=== PATIENT | female | born 1960 | race Caucasian/White ===

== ENCOUNTER 2025-04-12 16:51 | Inpatient (IN) | payer OTHER, SELFPAY ==
--- OUTSIDE RECORDS SUMMARY | 2024-08-20 08:00 | XMS_ITS ---
Author Organization [facility] liance Address [address] [place] [address] Care Team Providers Care Automotive Service Assistant Name Role Phone Octavio Lopez Primary Care Provider Dov diaz Clinical, Operations Unavailable Unavailable REASON FOR VISIT MDS Assessment Encounters Encounter Location Date Provider Diagnosis [facility] [address] [address] 08/20/2024 Operations Clinical Plan Of Treatment No Information Progress Notes * LINDSAY CHRISDOB:1960 (64 yo F)Acc No.[id number]:08/20/2024 BLOCKED FROM THE PATIENT Patient: LINDSAY NORMAN External Provider: Viridiana mckinley Clinical Resource:Tonny Sal :1960 A ge:64 Y S ex:Female Date:08/20/2024 Address:[address] [place], [place] [id number] Pcp:Octavio Lopez Patient's Default Facility:[facility] Subjective: * Chief Complaints: * 1 . MDS Assessment. * Medical History: Objective: * Vitals: Assessment: Plan: * Treatment: Care Plan: * Problems: * * The named appointment provid er may or may not be the originator of this progress note, and it is not deemed complete until electronically signed by the appointment provider. Sign off status: Pending * Provider: Viridiana mckinley Clinical Date: 0 08/20/2024 Generated for Wily gottlieb/Bernie/eTransmitting on: 06/13/2024 01:34 PM EST
--- OUTSIDE RECORDS SUMMARY | 2024-09-17 08:00 | XMS_ITS ---
Author Organization [facility] liance Address [address] [place] [address] Care Team Providers Care Hazardous Substances Engineer Name Role Phone Octavio Lopez Primary Care Provider Dov diaz Clinical, Operations Unavailable Unavailable REASON FOR VISIT MDS Assessment Encounters Encounter Location Date Provider Diagnosis [facility] [address] [address] 09/17/2024 Operations Clinical Plan Of Treatment No Information Progress Notes * LINDSAY CHRISDOB:1960 (64 yo F)Acc No.[id number]:09/17/2024 BLOCKED FROM THE PATIENT Patient: LINDSAY NORMAN External Provider: Viridiana mckinley Clinical Resource:Tonny Sal :1960 A ge:64 Y S ex:Female Date:09/17/2024 Address:[address] [place], [place] [phone] Pcp:Octavio Lopez Patient's Default Facility:[facility] Subjective: * Chief Complaints: * 1 . [...] * Provider: Viridiana mckinley Clinical Date: 0 09/17/2024 Generated for Wily gottlieb/Bernie/eTransmitting on: 06/13/2024 01:32 PM EST
--- OUTSIDE RECORDS SUMMARY | 2025-04-08 12:37 | XMS_ITS | Encounter Summary ---
Author Organization [facility] Angelique deutsch Address [address] [place] [id number] Care Team Providers Care Jointer Operator Name Role Phone Unknown, Provider Primary Care Provider Unava ilable Reason for Visit * Reason Comments Suicidal Depression * Auth/Cert (Routine) Specialty Diagnoses / Procedures Referred By Contac t Referred To Contact Diagnoses Episode of recurrent major depressive disorder, unspecified depression episode severity Suicidal ideation Depression, unspecified depression type . Procedures . Referral ID Status Reason Start Date Expiration Date Visits Re quested Visits Authorized [id number] 1 1 Encounter Details Date Type Department Care Team (Late st Contact Info) Description 04/08/2025 12:37 PM EST - 04/12/2025 3:00 PM EST Hospital Encounter [facility] Emergency Department [address] [place] [address] Suzanne Pierce MD [address] [place] [address] Abimael Fitzpatrick MD [address] [place] [address] [address] Jessie Starr MD [address] [place] [phone] Bossman Charles MD 1 [facility] [address] [place] [phone] Shaun Reyna MD 1 [place] [address] Lois Duarte MD 1 [facility] [address] [place] [phone] Stan Moon MD [address] [place] [address] Lamont Rosales DO [address] [place] [address] Octaivo Nicole MD One [address] [address] Chris Howard MD [address] [place] [phone] Douglas Arambula MD [address] [place] [address] Episode of recurrent major depressive disorder, unspecified depression episode severity (Primary Dx); Suicidal ideation; Depression, unspecified depression type Discharge Disposition: Psychiatric Hospital Social History Tobacco Use Types Packs/Day Years Used Date Smoking Tobacco: Never Smokeless Tobacco: Never Tobacco Cessation:Counseling Given: Not Answered Comments:Pt vapes Alcohol Use Standard Drinks/Week Comments Not Currently 0 (1 standard drink = 0.6 oz pur e alcohol) Humiliation, Afraid, Rape, and Kick questionnair e Answer Date Recorded Within the last year, have y ou been afraid of your partner or ex-partner? No 04/10/2025 Emotionally Abused Not on file 04/10/2025 Physically Abused Not on file 04/10/2025 Sexually Abused Not on file 04/10/2025 Overall Financial Resource Strain (CARDIA) Answe r Date Recorded How hard is it for you to pa y for the very basics like food, housing, medical care, and heating? Somewhat hard 04/10/2025 Hunger Vital Sign Answer Date Recorded Within the past 12 months, y ou worried that your food would run out before you got the money to buy more. Never true 04/10/20 25 Ran Out of Food in the Last Year Not on file 04/10/2025 PRAPARE - Transportation Answer Date Re corded In the past 12 months, has l ack of transportation kept you from medical appointments or from getting medications? No 03/26 In the past 12 months, has l ack of transportation kept you from meetings, work, or from getting things needed for daily living? No 04/10/2025 Housing Stability Vital Sign Answer Frankie e Recorded In the last 12 months, was t here a time when you were not able to pay the mortgage or rent on time? No 04/10/2025 Number of Times Moved in the Last Year Not on fi le 04/10/2025 At any time in the past 12 m [facility], were you homeless or living in a long-term (including now)? No 04/10/2025 [facility] Utilities Answer Date Recorded In the past 12 months has th e electric, gas, oil, or water company threatened to shut off services in your home? No 04/10/2025 Food Insecurity Answer Date Recorded Within the past 12 months, y ou worried that your food would run out before you got the money to buy more. Never true 04/10/20 25 Ran Out of Food in the Last Year Not on file 04/10/2025 Intimate Partner Violence Answer Date R ecorded Emotionally Abused Not on file 04/10/2025 Within the last year, have y ou been afraid of your partner or ex-partner? No 04/10/2025 Physically Abused Not on file 04/10/2025 Sexually Abused Not on file 04/10/2025 Housing Stability Answer Date Recorded Unstable Housing in the Last Year Not on file 04/10/2025 In the last 12 months, was t here a time when you were not able to pay the mortgage or rent on time? No 04/10/2025 [address] Lived in the Last Year Not on f ile 04/10/2025 AUDIT C Answer Date Recorded How often have you had a dri nk containing alcohol, in the past year? 0 04/08/2025 How many standard drinks con taining alcohol have you had on a typical day when you are drinking, in the past year? 0 1 06/08/2024 How often have you had six o r more drinks on one occasion, in the past year? 0 04/08/2025 Comments Unknown Sex and Gender Information Value Date Recorded Sex Assigned at Female 04/08/2025 1:50 PM EST Legal Sex Female 3:54 PM EST Gender Identity Female 04/08/2025 1:50 PM EST Sexual Orientation Straight 04/08/2025 1: 50 PM EST documented as of this encounter Last Filed Vital Signs Vital Sign Reading Time Taken Comments Blood Pressure 117/62 04/12/2025 6:50 AM EST Pulse 75 04/12/2025 6:50 AM EST Temperature 36.7 C (98 F) 04/12/2025 6:50 AM EST Respiratory Rate 18 04/12/2025 6:50 AM EST Oxygen Saturation 95% 04/12/2025 6:50 AM EST Inhaled Oxygen Concentration - - Weight 109 kg (241 lb 3.2 oz) 04/08/2025 12:23 P M EST Height 162.6 cm (5' 4 ) 04/08/2025 12:23 PM EST Body Mass Index 41.4 04/08/2025 12:23 PM EST documented in this encounter Functional Status * Are you deaf or do you have serious difficulty hearing? Answer Date of Assessment Author No 04/08/2025 1:52 PM Velia Mares * Are you blind or do you have serious difficulty seeing, even when wearing glasses? Answer Date of Assessment Author No 04/08/2025 1:52 PM Velia Mares * Do you have serious difficulty walking or climbing stairs? Answer Date of Assessment Author No 04/08/2025 1:52 PM Velia Mares * Do you have difficulty dressing or bathing? Answer Date of Assessment Author No 04/08/2025 1:52 PM Velia Mares * Because of a physical, mental, or emotional condition, do you have difficulty doing errands alone such as visiting the doctor? Answer Date of Assessment Author No 04/08/2025 1:52 PM Velia Mares documented as of this encounter Mental Status * Because of a physical, mental, or emotional condition, do you have serious difficulty concentrating, remembering, or making decisions? Answer Entry Date Author No 04/08/2025 1:52 PM Velia Mares documented in this encounter Medications at Time of Discharge atorvaSTATin (LIPITOR) 80 MG tablet Take 1 tablet (80 mg total) by mouth in the morning. 07/09/2024 cholecalciferol (VITAMIN D3) 50 mcg (2,000 unit) Tab tablet Take 1 tablet (2,000 Units total) by mouth in the morning. cloNIDine (CATAPRES) 0.1 MG tablet Take 1 tablet (0.1 mg total) by mouth in the morning and 1 tablet (0.1 mg total) before bedtime. docusate sodium (COLACE) 100 MG capsule Take 1 capsule (100 mg total) by mouth in the morning and 1 capsule (100 mg total) before bedtime. 12/13/2024 EYE ITCH RELIEF 0.025 % (0.035 %) ophthalmic solution Administer 1 drop to both eyes in the morning and 1 drop before bedtime. 03/11/2025 famotidine (PEPCID) 40 MG tablet Take 1 tablet (40 mg total) by mouth in the morning. gabapentin (NEURONTIN) 100 MG capsule Take 1 capsule (100 mg total) by mouth in the morning and 1 capsule (100 mg total) in the evening and 1 capsule (100 mg total) before bedtime. 01/27/2025 gabapentin (NEURONTIN) 800 MG tablet Take 1 tablet (800 mg total) by mouth in the morning and 1 tablet (800 mg total) in the evening and 1 tablet (800 mg total) before bedtime. hydrOXYzine HCL (ATARAX) 25 MG tablet Take 1 tablet (25 mg total) by mouth 2 times a day as needed for anxiety. 02/16/2025 ibuprofen (MOTRIN) 800 MG tablet Take 1 tablet (800 mg total) by mouth every 8 hours as needed for pain. lisinopriL (ZESTRIL) 20 MG tablet Take 1 tablet (20 mg total) by mouth in the morning. 04/23/2024 methadone (DOLOPHINE) 10 mg/mL solution Take 5.3 mL (53 mg total) by mouth in the morning. 03/08/2022 ONETOUCH DELICA PLUS LANCET 30 gauge Misc Use two times daily. 01/05/2025 OneTouch Verio Test Strips Use two times daily. Dispense test strips covered by insurance. ICD Code E11.69 01/05/2025 pantoprazole (PROTONIX) [address] tablet Take 1 tablet (40 mg total) by mouth in the morning. promethazine (PHENERGAN) 25 MG tablet Take 1 tablet (25 mg total) by mouth every 8 hours as needed for nausea. SENNA 8.6 mg tablet Take 1 tablet (8.6 mg total) by mouth in the morning and 1 tablet (8.6 mg total) before bedtime. 02/28/2025 tiZANidine (ZANAFLEX) 4 MG tablet every 8 hours as needed (spasm). VENTOLIN HFA 90 mcg/actuation inhaler Inhale 2 puffs every 6 hours as needed for wheezing. 01/28/2025 diclofenac sodium (VOLTAREN) 1 % Gel Apply 2 g topically in the morning and 2 g at noon and 2 g in the evening and 2 g before bedtime. 09/24/2024 mirtazapine (REMERON) 7.5 MG tablet Take 2 tablets (15 mg total) by mouth at bedtime. 11/29/2024 tirzepatide (MOUNJARO) 2.5 mg/0.5 mL subcutaneous pen injector Inject 2.5 mg under the skin once a week. documented as of this encounter Progress Notes * Flako Pink - 04/12/2025 11:42 AM EST Behavioral Health Crisis Consult- Contact Note Patient: Evelyne Reyes : 1960 Admit Date: 04/08/2025 Date of Consult: 04/12/2025 Time of Consult: 11:42 AM Narrative: Patient: Evelyne Reyes Accepting Facility: [facility] Accepting Facility Address: [address] [place] [id number] Accepting MD: Dr Johanna Trevino Arrival Time: 4pm arrival Nurse to Nurse Report: they will call for N2N Other Labs or Needs: N/A HCP/Guardian (if applicable): N/A Reason for Section 12: SI, increased depression Information Given To: via secure chat * Jessica Vicente - 04/11/2025 12:11 PM EST Behavioral Health Crisis Consult- Contact Note Patient: Evelyne Reyes : 1960 Admit Date: 04/08/2025 Date of Consult: 04/11/2025 Time of Consult: 12:11 PM Narrative: Uploaded newest MSU to [facility] * Simi Mcclain MA - 04/11/2025 10:28 AM EST Behavioral Health Crisis Consult - Follow Up Patient: Evelyne Reyes : 1960 Admit Date: 04/08/2025 Date of Consult: 04/11/2025 Time of Consult: 10:28 AM CC: Chief Complaint Patient presents with Suicidal Depression Chart Reviewed, case discussed with team and staff. Patient reports I need serious help Updates: Psych consult outcome/psych medications: n/a Collateral Contact: No Explain:: Pt continues to meet I.P. L.O.C. Medical/Psychiatric/Substance/Social/Family History: Histories from previous consult note of 04/10 remain unchanged, except as note in HPI. Current Medications: Scheduled Medications[1] Current PRN: PRN Medications[2] Allergies: Patient has no known allergies. Physical Exam: Patient Vitals for the past 24 hrs: BP Temp Temp src Pulse Resp SpO2 04/11/25 0815 107/67 98.6 ??F (37 ??C) Oral 75 16 94 % 04/11/25 0530 107/64 -- -- 84 18 96 % 04/10/250 (!) 140/80 99 ??F (37.2 ??C) Oral 88 20 95 % 04/10/25 1237 -- -- -- -- 18 -- 04/10/25 1116 118/68 98.6 ??F (37 ??C) Oral 72 18 100 % 04/10/25 1109 118/68 -- -- -- -- -- Mental Status Exam: Mental Status Exam General Appearance: Appears stated age, appropriately dressed and no apparent distress. Disheveled. Level of Consciousness: Alert. Orientation: Oriented to person, place, time and situation. Attitude and Behavior: Cooperative. Psychomotor Activity: Normal. Speech: Normal rate, volume, rhythm, coherence, articulation, prosody and pitch. Language: Normal. Mood: Patient description of mood: Depressed. Affect: Depressed and tearful. Thought Process and Associations: Logical and goal directed. Thought Content: Positive for suicidal ideation (Patient reports mostly passive SI with vague plan. She is not forthcoming about the plan). No self-injurious ideation, no homicidal ideation and not actively hallucinating. Attention Span: Appropriate. Memory: Grossly intact. Fund of Knowledge: Normal. Cognition: Normal. Insight: Good. Judgment: Good. Labs, Imaging & Other Studies: Laboratory: Recent lab results have been reviewed and are notable for No results found for this or any previous visit (from the past 24 hours). EKG: No studies were reviewed. C-SSRS: Brewster Suicide Severity Rating Scale (C-SSRS) Since Last Contact Screener 1) Have you wished you were or wished you could go to sleep and not wake up? (Since Last Contact): Yes 2) Have you actually had any thoughts about killing yourself? (Since Last Contact): Yes 3) Have you been thinking about how you might do this? (Since Last Contact): No 4) Have you had these thoughts and had some intention of acting on them? (Since Last Contact): No 5) Have you started to work out or worked out the details of how to kill yourself? Did you intend to carry out this plan? (Since Last Contact): No 6) Have you done anything, started to do anything, or prepared to do anything to end your life? (Since Last Contact): No C-SSRS Risk Level (Since Last Contact Screener): Low Risk (04/11/25 1027 : Simi Mcclain MA) Assessment: Patient is a 64 y.o. female with past medical and psychiatric history as above. During eval, the patient presented as AOx4, calm, cooperative, and depressed. Her speech was WNL, goal-directed, and organized. Her affect was tearful and congruent with her reported sad mood. She endorsed passive SI with vague plan. She denied any SIB/HI and denied any symptoms of psychosis. She presented with goodinsight and judgement regarding her current condition and need for treatment. She struggled to engage in safety planning, The patient shared that she has a hx of severe trauma and grief which have been contributing to her depression. She explained that she used to be outgoing and that her recent behaviors do not align with her typical personality. In recent months, the patient has not been leaving her room. She has been severely depressed, neglecting to care for herself, and avoiding leaving the house. She was recently scheduled to start TMS at [facility], though she became too anxious about leaving the house and began to feel sick. She shared that a new TMS appointment has been scheduled for April 25. Throughout conversation, the patient made multiple statements expressing a feeling of hopelessness.She stated I have no life and I am a shell of a person . Of note, the patient's psychiatric provider at [facility] encouraged her to advocate for placement at [facility]. She estimated that she was last admitted to [facility] ~20 years ago. Her bed at [facility] was cancelled on 04/09 after she reported previous trauma on the unit. She also mentioned [facility], [facility], [facility]. She understands that bed placement is based on availability. Recommendations:This patient will remain boarding for psychiatric inpatient admission at this time.She continues to report suicidal ideation and inability to care for self in the context of increased depression and anxiety. Requested LOC: [facility] Barriers to placement/Specialty Placement Required: n/a Disposition Recommendation: Inpatient Level of Care Behavioral Health Diagnosis: F33.9 Depression, recurrent, unspecified Duration: Time Spent (min): 45 Case d/w: DEV Cortes ; Lamont Rosales DO Signed by: Simi Mcclain MA [1] atorvaSTATin, 80 mg, Oral, Daily cholecalciferol, 2,000 Units, Oral, Daily cloNIDine, 0.1 mg, Oral, BID docusate sodium, 100 mg, Oral, BID gabapentin, 800 mg, Oral, TID lisinopriL, 20 mg, Oral, Daily methadone, 53 mg, Oral, Daily sennosides, 8.6 mg, Oral, BID [2] hydrOXYzine HCL ondansetron promethazine tiZANidine * Luke Strong, MS - 04/10/2025 9:46 AM EST Behavioral Health Crisis Consult - Follow Up Patient: Evelyne Reyes : 1960 Admit Date: 04/08/2025 Date of Consult: 04/10/2025 Time of Consult: 9:46 AM CC: Chief Complaint Patient presents with Suicidal Depression Chart Reviewed, case discussed with team and staff. Patient reports S/I with vague plan not forthcoming with intent. Pt however, does presents as despondent, hopeless and helpless. Updates: Psych consult outcome/psych medications: Please seek psychiatric medication consult while Pt is in the E.D. Collateral Contact: No Explain:: Pt continues to meet I.P. L.O.C. Medical/Psychiatric/Substance/Social/Family History: Histories from previous consult note of I.P. remain unchanged, except as note in HPI. Current Medications: Scheduled Medications[1] Current PRN: PRN Medications[2] Allergies: Patient has no known allergies. Physical Exam: Patient Vitals for the past 24 hrs: BP Temp Temp src Pulse Resp SpO2 04/10/25 0415 -- -- -- -- 16 -- 04/09/251999 128/79 98.2 ??F (36.8 ??C) Oral 80 17 96 % 04/09/25 1852 123/75 -- -- 76 20 97 % 04/09/25 1543 129/76 98 ??F (36.7 ??C) -- 81 20 96 % 04/09/25 1344 139/78 97.4 ??F (36.3 ??C) Oral 77 16 96 % Mental Status Exam: Mental Status Exam General Appearance: Appears stated age. Overweight, disheveled and severe distress. Level of Consciousness: Lethargic. Orientation: Oriented to person, place and situation. Attitude and Behavior: Cooperative. Suspicious. Eye Contact: Good eye contact. Psychomotor Activity: Normal. Speech: Normal rate, volume, rhythm, coherence, articulation, prosody and pitch. Language: Normal. Affect: Anxious and depressed. Thought Process and Associations: Unable to asses. Thought Content: Positive for suicidal ideation. No self-injurious ideation, no homicidal ideation and not actively hallucinating. Attention Span: Appropriate. Memory: Grossly intact. Fund of Knowledge: Normal. Cognition: Normal. Insight: Poor. Judgment: Poor. Labs, Imaging & Other Studies: Laboratory: Recent lab results have been reviewed and are notable for N/A No results found for this or any previous visit (from the past 24 hours). EKG: No studies were reviewed. C-SSRS: Brewster Suicide Severity Rating Scale (C-SSRS) Since Last Contact Screener 1) Have you wished you were or wished you could go to sleep and not wake up? (Since Last Contact): Yes 2) Have you actually had any thoughts about killing yourself? (Since Last Contact): Yes 3) Have you been thinking about how you might do this? (Since Last Contact): No 4) Have you had these thoughts and had some intention of acting on them? (Since Last Contact): No 5) Have you started to work out or worked out the details of how to kill yourself? Did you intend to carry out this plan? (Since Last Contact): No 6) Have you done anything, started to do anything, or prepared to do anything to end your life? (Since Last Contact): No C-SSRS Risk Level (Since Last Contact Screener): Low Risk (04/10/25 0944 : Luke Strong, ) Brewster Suicide Severity Rating Scale (C-SSRS) Discharge Screener 1) While you were here in the hospital/program, have you wished you were or wished you could go to sleep and not wake up?: Yes 2) While you were here in the hospital/program, have you actually had thoughts about killing yourself?: Yes 3) While you were here in the hospital/program, have you been thinking about how you might kill yourself?: No 4) While you were here in the hospital/program, have you had these thoughts and had some intention of acting on them, or do you have some intention of acting on them after you leave the hospital/program?: No 5) Have you started to work out or worked out the details of how to kill yourself either for while you were here in the hospital/program or for after you leave the hospital/program? Do you intend to carry out this plan?: No 6) While you were here in the hospital/program, have you done anything, started to do anything, or prepared to do anything to end your life?: No C-SSRS Risk Level (Discharge Screener): Low (04/10/25 0944 : Luke MS Ligia) Assessment: Patient is a 64 y.o. female with past medical and psychiatric history as above now presents with depression and anxiety and is endorsing S/I with a vague plan as she declines to specify and is unableto engage in safety planning @ this time. Pt resides with her two sons in the community and [facility]. She has a psychiatrist but has not been taking her medications as she reports they do not help her anyway. She also stopped seeing a therapist and mainly isolates in her room. Pt reports issues with sleep and appetite and appears despondent, on the verge of tears, hopeless and helpless. Pt denies A/V hallucinations, SIBS and H/I. Pt continues to meet I.P. L.O.C. [facility] ([email or web address]) agrees with Clinician's disposition. Pt is asking NOT to go to [facility] as she reports having a traumatic experience there and is asking to go to [facility]. Pt reports her last I.P. 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 Recommendations: I.P. L.O.C. Requested LOC: I.P. Barriers to placement/Specialty Placement Required: None Disposition Recommendation: Inpatient Level of Care Behavioral Health Diagnosis: Unspecified Depressive D/O, F32.9 (311) Duration: Time Spent (min): 60 Case d/w: [facility] ([email or web address].[email or web address]) Signed by: Luke Strong MS, Comic Writer [1] atorvaSTATin, 80 mg, Oral, Daily cholecalciferol, 2,000 Units, Oral, Daily cloNIDine, 0.1 mg, Oral, BID docusate sodium, 100 mg, Oral, BID gabapentin, 800 mg, Oral, TID lisinopriL, 20 mg, Oral, Daily methadone, 53 mg, Oral, Daily sennosides, 8.6 mg, Oral, BID [2] hydrOXYzine HCL promethazine tiZANidine * Regino Sampsonnes - 04/09/2025 11:51 AM EST Behavioral Health Crisis Consult - Follow Up Patient: Evelyne Reyes : 1960 Admit Date: 04/08/2025 Date of Consult: 04/09/2025 Time of Consult: 10:00am CC: Chief Complaint Patient presents with Suicidal Depression The patient is a 64-year-old female with a history of major depression and PTSD who [facility] by family on 04/08/2025 due to worsening depression and suicidal ideation. The patient was medically cleared by the ED attending physician. Behavioral health was consulted resulting in the clinician determining a need for section 12 and involuntary psychiatric inpatie nt level of care. A bed was found for the patient at [facility] with transfer pending for this morning. [facility] ED team contacted [facility] emergency services triage informing them that she was agitated and refusing to get on the gurney to be transferred. They were requesting further assessment. Chart Reviewed, case discussed with team and staff. The patient's nurse states their team sent the ambulance away and do not feel the patient should be hospitalized at [facility] as she reportedly had a past traumatic experience there, felt the transfer would retraumatize her and recommendedthat she be placed at another facility. Met with the patient via telehealth on a secure platform. She was noted to be sitting on the gurney, was very tearful, anxious, and showing signs of agitation though was cooperative with the interview. The patient reports that her sleeping energy and concentration are all decreased. She states thather appetite is fair. She reports preoccupation with thoughts of hopelessness and worthlessness. She continues to express a wish to , continues somewhat vague around a clear plan or intent but does state, I do not know what I am going to do, I cannot keep feeling like this . Explored the patient's reluctance to be transferred to [facility]. She states that she has been there before and experienced traumatic interactions with some of the staff there though declined to provide further detail. She had difficulty discussing this further due to her level of anxiety,agitation, and distress. Discussed the case with flight test supervisor, Freida Lazcano and Lakeisha who agree with patient remaining in the EDfor placement at another facility. Medical/Psychiatric/Substance/Social/Family History: Histories from previous consult note of 04/08/25 remain unchanged, except as note in HPI. Current Medications: Scheduled Medications[1] Current PRN: PRN Medications[2] Allergies: Patient has no known allergies. Physical Exam: Patient Vitals for the past 24 hrs: BP Temp Temp src Pulse Resp SpO2 Height Weight 04/09/25 0909 (!) 145/91 98.5 ??F (36.9 ??C) Oral -- 18 95 % -- -- 04/09/25 0605 120/56 -- -- 80 16 95 % -- -- 04/08/25 2000 106/61 -- -- 77 18 95 % -- -- 04/08/25 1230 110/83 97.2 ??F (36.2 ??C) Temporal 79 18 99 % -- -- 04/08/25 1223 -- -- -- -- -- -- 1.626 m (5' 4 ) (!) 109 kg (241 lb 3.2 oz) Mental Status Exam: Mental Status Exam General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 ED notes for initial evaluation and management. ED Observation Progress and Discharge Notes ED Course as of 04/12/25 1201 Fri Apr 08, 2025 1539 Creatinine(!): 1.60 C/w priors [MS] 1539 Covid/Flu/RSV (Rapid) Negative. [MS] 1558 Signout: h/o depression, now with passive SI. Behavioral health c/s. [AM] Sat Apr 09, 2025 0019 I have received sign-out on this patient at the beginning of my shift. PSYCH HOLD [TT] 0807 Received patient in signout. Psych hold, medically clear. Inpatient bed at [facility] today [AY] 0947 Patient refused to go to [facility] w/ EMS, psych notified and working on alternate placement [AY] 1233 Per psych clinician, discussed the case with my supervisors. She remains on section 12, in need of involuntary inpatient psych hospitalization. We will continue the bed search, look for placement elsewhere than [facility]. [AY] 1442 Assumed care at [facility]. Patient with depression and suicidal ideation, medically cleared. On a sec 12, was going to [facility], but patient with increased agitation and reluctance to go to [facility]. Unable to de-escalate. Behavioral health team reengaged with plan for continued ED observation and working on alternate inpatient placement [JS] 2337 I have received sign-out on this patient at the beginning of my shift. PSYCH HOLD SI. LOOKING FOR BED [TT] Sun Apr 10, 2025 0635 Received in signout, 64F w suicidal ideation med cleared remains inpatient bed search in process [AY] 1434 I received signout on this patient at 2:34 PM Mental health crisis. IPLOC. Bed search in progress. [GJ] Mon Apr 11, 2025 0706 I have received signout on this patient, who is currently admitted to ED observation for SI. Evelyne is currently awaiting IPLOC. No issues reported at this time. [CD] 4460 Met with patient, reviewed her labs which show elevated blood sugars. She had previously been on metformin but not for several months. [CF] Luis Eduardo Apr 12, 2025 0147 Accepted to [facility] [SC] 1200 Patient accepted to [facility]. [JI] ED Course User Index [AM] Abimael Fitzpatrick MD [AY] Jessie Starr MD [CD] Lamont Rosales DO [CF] Octavio Nicole MD [GJ] Lois Duarte MD [JI] Douglas Arambula MD [JS] Bossman Charles MD [MS] Fredy Mckeon MD [SC] Chris Howard MD [TT] MD Abimael Lopez MD 04/08/25 190 Bossman Charles MD 04/09/25 2333 Douglas Arambula MD 04/12/25 1201 * Attestation Note - Suzanne Pierce MD - 04/08/2025 12:20 PM EST [facility] ED Attestation Note I was physically present during the morales or critical portions of the service performed by the resident and participated in the management of the patient. HPI Presenting for evaluation of depression and passive suicidal ideation. Reports feeling very depressed and wishing she was . Denies active suicidal ideation or intent to harm herself. Recent stressors include the of her brother and nephew. Reports a decline in her functional status and life satisfaction since the of her fourth son in July 2007. Past medical history of ADHD, depressive disorder, PTSD, OUD on methadone maintenance, diabetes, and obesity, hypertension, hyperlipidemia, and CKD, COPD. Denies alcohol or other illicit drug use. Prescribed methadone 58 mg daily. Reports difficulty in tapering the dose as requested. Reports visual hallucinations but denies auditory hallucinations. Denies responding to internal stimuli. Review of Clinic and Hospital Notes Last visit with one of her two therapists was last month. She has missed recent appointments due toillness. She feels one therapist was unsupportive after she missed appointments. Sees psychiatrist Dr. Christianson at [facility] monthly via telehealth. Last visit was this month. Reports non-adherence to prescribed antidepressants from Dr. Hurtado, stating they have not been effective despite taking them for up to six months at a time. She is currently on an antidepressant but cannot recall the name. Review of a note from Dr. Klaus Christianson dated 03/07/2025 indicates a history of PTSD, depression, anxiety, ADHD, and polysubstance use disorder in sustained remission on methadone. Recent psychiatric follow-up noted depressed mood, high anxiety with physical symptoms, and struggles with sleep. Denied suicidal ideation at that time. Medications listed in the 03/07/2025 note include mirtazapine, clonidine, hydroxyzine, gabapentin, methadone, lisinopril, atorvastatin, pantoprazole, and others for chronic conditions. Recent labs from 10/15/2024 showed elevated BUN (21) and creatinine (1.7), and hyperglycemia (252).A HgbA1c from 09/15/2024 was 13.2%. A hemoglobin from 10/15/2024 was 11.9 g/dL. She has an EGD scheduled for 05/06/2025 for nausea and vomiting. Physical Exam: Triage Vitals: Temperature 97.2 F, blood pressure 110/83 mmHg, heart rate 79 bpm, respirations 18/min, oxygen saturation 99% on room air. Constitutional: Appears frequently tearful. Psychiatric: Flat affect, somewhat tangential and perseverative thought process. Neurologic: Awake and alert. Oriented to place, month, and year. Unsure of the exact date. Medical Decision Making and ED Course A psychiatric consultation will be obtained for evaluation and recommendations. Will attempt to clarify current medications with nursing assistance. If admitted, home medications will be reconciled and administered. See ED Course section for additional details. Independent Review of ED Investigations CBC: Mild anemia with hemoglobin 10.5 g/dL and hematocrit 31.3%. Electrocardiogram: Normal sinus rhythm, first degree AV block, normal axis, narrow QRS, QTc 436 ms,no ectopy, no ST segment change. Basic metabolic panel Urine toxicology screen Plasma toxicology screen UA Summary Evelyne Reyes is a 64-year-old female with a history of PTSD, major depressive disorder, ADHD, OUD on methadone, diabetes and hypertension, hyperlipidemia, CKD, and COPD who presents with worsening depression and passive suicidal ideation. She denies active intent or plan for self-harm. She describes significant life stressors, including recent family deaths. Her affect is flat, she is frequentlytearful, and her thought process is somewhat tangential and perseverative. She is oriented to place, month, and year. She endorses visual but not auditory hallucinations. Her EKG shows a first-degreeAV block. Her CBC reveals a mild anemia. Given her presentation with suicidal ideation, a psychiatric consultation is being obtained for further evaluation and management recommendations. She cannot leave the ED voluntarily. Clinical Impressions: Major depressive disorder, severe exacerbation Passive suicidal ideation Mild anemia First-degree atrioventricular block Disposition: ED Observation Critical Care time (minutes): 30 Critical care was necessary to treat or prevent imminent or life-threatening deterioration of the following conditions: psychiatric crisis Critical care was time spend by me on the following activities: discussions with other provider, discussions with consultants, examination of patient, documenting the case, medical decision making and ordering and review of laboratory studies MD Suzanne Kate MD 04/08/251948 documented in this encounter Plan of Treatment Not on file documented as of this encounter Procedures Procedure Name Priority Date/Time Associated Diagnosis Comments POCI GLUCOSE Routine 04/12/2025 1:52 AM EST POCI GLUCOSE Routine 04/11/2025 4:54 PM EST DRUG SCREEN, URINE STAT 04/08/2025 6: 29 PM EST URINALYSIS WITH URINE CULTURE REFLEX STAT 04/08/2025 6:29 PM EST ECG 12-LEAD STAT 04/08/2025 2:44 PM EST SARS COV2/INFLUENZA A/B AND RSV STAT 04/08/2025 2:32 PM EST CBC AND DIFFERENTIAL STAT 04/08/2025 2:32 PM EST TOXICOLOGY SCREEN, BLOOD STAT 04/08/2025 2:32 PM EST CBC AND DIFFERENTIAL STAT 04/08/2025 2:32 PM EST BASIC METABOLIC PANEL STAT 04/08/2025 2:32 PM EST documented in this encounter Results * (ABNORMAL) POCT Glucose (04/12/2025 1:52 AM EST) [facility] Signature Glucose, POC 231(H) 70 - 110 mg/dL 04/12/2025 1:56 AM EST [facility] Comment: Expected results for non-diabetics are: Before meals: 70 - 99 mg/dL 2 hour post meal: < 140 mg/dL Critical values: < 50 and > 400 mg/dL Limitations of the Nova Stat Strip Method are as follows: -The range of the Nova Stat Strip meter is 0-600 mg/dL. -Lipemic samples: Triglycerides > 750 mg/dL may effect results. -Not to be used with severely hypotensive or dehydrated patients. -Improper technique/dosing of test strip will yield false results. -Do not use blood collection tubes containing fluoride (camilo top) as sodium fluoride interferes with test results. Blood 04/12/2025 1:52 AM EST 04/12/2025 1:56 AM EST [facility] - 04/12/2025 1:56 AM EST C4 Planner: Yaneth Sosa us Chris Howard MD POCT ORDERABLES - DEVICE Final Result [facility] [address] [place] [address], * (ABNORMAL) POCT Glucose (04/11/2025 4:54 PM EST) [facility] Glucose, POC 321(H) 70 - 110 mg/dL 04/11/2025 4:56 PM EST [facility] Comment: Expected results for non-diabetics are: Before meals: 70 - 99 mg/dL 2 hour post meal: < 140 mg/dL Critical values: < 50 and > 400 mg/dL Limitations of the Nova Stat Strip Method are as follows: -The range of the Nova Stat Strip meter is 0-600 mg/dL. -Lipemic samples: Triglycerides > 750 mg/dL may effect results. -Not to be used with severely hypotensive or dehydrated patients. -Improper technique/dosing of test strip will yield false results. -Do not use blood collection tubes containing fluoride (camilo top) as sodium fluoride interferes with test results. Blood 04/11/2025 4:54 PM EST 04/11/2025 4:56 PM EST [facility] - 04/11/2025 4:56 PM EST C4 Planner: Alyssia Ignacio us Octavio Nicole MD POCT ORDERABLES - DEVICE Final Result [facility] [address] [place] [address], * (ABNORMAL) Drug Screen, Urine (04/08/2025 6:29 PM EST) Pathologist [facility] Amphetamines Screen, Urine Negative Negative 04/08/2025 11:24 PM EST [facility] Barbiturates Screen, Urine Negative Negative 04/08/2025 11:24 PM EST [facility] Benzodiazepine Screen, Urine Negative Negative 04/08/2025 11:24 PM EST [facility] Cannabinoids Screen, Urine Negative Negative 04/08/2025 11:24 PM EST [facility] Cocaine Metabolite Screen, Urine Negative Negative 04/08/2025 11:24 PM EST [facility] Fentanyl Screen, Urine Negative Negative 04/08/2025 11:24 PM EST [facility] Methadone Screen, Urine Positive(A) Negative 04/08/2025 11:24 PM EST [facility] Comment:A Positive result is not routinely confirmed. This specimen will be held for 1 week, during which time you may request confirmatory testing be added on by ordering METHADONE, URINE, CONFIRMATION Opiates Screen, Urine Negative Negative 04/08/2025 11:24 PM EST [facility] Oxycodone Screen, Urine Negative Negative 04/08/2025 11:24 PM EST [facility] Comment [facility] performs toxicology screens for the clinical management of the patient. The laboratory does not perform toxicology screens for LEGAL or EMPLOYMENT purposes. TEST CUTOFF CONCENTRATION VALUE ---- Amphetamine/Met hamphetamine 1000 ng/mL Barbiturates 200 ng/mL Benzodiazepines 200 ng/mL Cocaine 300 ng/mL Methadone 300 ng/mL Opiates 300 ng/mL THC 50 ng/mL Oxycodone 100 ng/mL Fentanyl 5 ng/mL Results below the numerical cutoff indicate that either no drug OR a drug level below the cutoff value is present in the specimen. 04/08/2025 11:24 PM [facility] Urine URINE SPECIMEN / Unknown Collection / Unknown 04/08/2025 6:29 PM EST 04/08/2025 10:51 PM EST Suzanne Pierce MD URINE ORDERABLES Final Result [facility] [address] [place] [address], * (ABNORMAL) Urinalysis with Reflex to Urine Culture (04/08/2025 6:29 PM EST) Color, Urine Light yellow Yellow 04/08/2025 6:40 PM [facility] Clarity, Urine Clear Clear 04/08/2025 6:40 PM [facility] pH, Urine 6.5 5.0 - 8.0 04/08/2025 6:40 PM [facility] Protein, Urine Negative Negative 04/08/2025 6:40 PM [facility] Glucose, Urine 4+(A) Negative 04/08/2025 6:40 PM [facility] Ketone, Urine Negative Negative 04/08/2025 6:40 PM [facility] Bilirubin, Urine Negative Negative 04/08/2025 6:40 PM [facility] Blood, Urine Negative Negative 04/08/2025 6:40 PM [facility] Leukocyte Esterase, Urine 2+(A) Negative 04/08/2025 6:40 PM [facility] Nitrite, Urine Negative Negative 04/08/2025 6:40 PM [facility] Specific [place], Urine 1.019 1.002 - 1.030 04/08/2025 6:40 PM [facility] White Blood Cells, Urine 0-5 0-5 cells/HPF cells/HPF 04/08/2025 6:40 PM [facility] Red Blood Cell, Urine 3-5 0-5 cells/HPF cells/HPF 04/08/2025 6:40 PM [facility] Squamous Epithelial Cells 0-5 0-5 cells/HPF /HPF 04/08/2025 6:40 PM EST [facility] Mucous Threads 1+(A) None Seen 04/08/2025 6:40 PM EST [facility] Hyaline Cast 11-20(A) 0-5 casts/LPF cast/LPF 04/08/2025 6:40 PM EST [facility] Urine MID-STREAM URINE SPECIMEN / Unknown Collection / Unknown 04/08/2025 6:29 PM EST 04/08/2025 6:32 PM EST us Suzanne Pierce MD URINE ORDERABLES Final Result Performing Organization Address City/[facility]/ZIP Co de Phone Number [facility] [address] [place] [address], [place] * ECG 12 lead (04/08/2025 2:44 PM EST) Ventricular Heart Rate 65 BPM EKG [facility] MUSE Atrial Heart Rate 65 BPM EKG [facility] MUSE KS Interval 248 ms EKG [facility] QRSD Interval 92 ms EKG [facility] QT Interval 420 ms EKG [facility] QTC Interval 436 ms EKG [facility] MUSE P [place] 51 degrees EKG [facility] MUSE R [place] 54 degrees EKG [facility] MUSE T Wave [place] 57 degrees EKG [facility] MUSE 04/08/2025 2:43 PM EST 04/08/2025 5:15 PM EST Narrative EKG [facility] - 04/08/2025 5:15 PM EST Sinus rhythm with 1st degree A-V block Otherwise normal ECG No previous ECGs available Confirmed by Pablito MCCOY MD ([id number]) on 04/08/2025 5:15:18 PM Procedure Note Pablito Mccoy MD - 04/08/2025 Sinus rhythm with 1st degree A-V block Otherwise normal ECG No previous ECGs available Confirmed by Pablito MCCOY MD ([id number]) on 04/08/2025 5:15:18 PM us Suzanne Pierce MD ECG ORDERABLES Final Result EKG [facility] [address] [place] [id number] * (ABNORMAL) CBC and Differential (04/08/2025 2:32 PM EST) WBC 7.70 4.00 - 11.00 K/uL 04/08/2025 2:44 PM [facility] RBC 3.53(L) 3.90 - 5.20 M/uL 04/08/2025 2:44 PM [facility] Hemoglobin 10.5(L) 12.0 - 16.0 g/dL 04/08/2025 2:44 PM [facility] Hematocrit 31.3(L) 36.0 - 46.0 % 04/08/2025 2:44 PM [facility] MCV 89 80 - 100 fL 04/08/2025 2:44 PM [facility] MCH 29.7 26.0 - 33.0 pg 04/08/2025 2:44 PM [facility] MCHC 33.5 31.0 - 37.0 g/dL 04/08/2025 2:44 PM [facility] RDW 12.4 11.5 - 14.5 % 04/08/2025 2:44 PM [facility] Platelet Count 211 150 - 400 K/uL 04/08/2025 2:44 PM [facility] Nucleated RBC 0 <=0 #/100 WBC 04/08/2025 2:44 PM [facility] Neutrophil 55.9 30.0 - 85.0 % 04/08/2025 2:44 PM [facility] Lymphocyte 35.5 15.0 - 50.0 % 04/08/2025 2:44 PM [facility] Monocyte 6.0 2.0 - 12.0 % 04/08/2025 2:44 PM [facility] Eosinophil 2.2 0.0 - 5.0 % 04/08/2025 2:44 PM [facility] Basophil 0.1 0.0 - 2.0 % 04/08/2025 2:44 PM [facility] Immature Granulocyte ([place], Myelo, Promyelocyte) 0.3 0.0 - 1.0 % 04/08/2025 2:44 PM EST [facility] Absolute Neutrophil Count 4.31 1.20 - 9.30 K/uL 04/08/2025 2:44 PM EST [facility] Absolute Lymphocyte Count 2.73 0.60 - 5.50 K/uL 04/08/2025 2:44 PM EST [facility] Absolute Monocyte Count 0.46 0.08 - 1.30 K/uL 04/08/2025 2:44 PM EST [facility] Absolute Eosinophil Count 0.17 0.00 - 0.68 K/uL 04/08/2025 2:44 PM EST [facility] Absolute Basophil Count 0.01 0.00 - 0.20 K/uL 04/08/2025 2:44 PM EST [facility] Absolute Immature Granulocyte ([place], Myelo, Promyelocyte) 0.02 0.00 - 0.10 K/uL 04/08/2025 2:44 PM EST [facility] Blood PERIPHERAL BLOOD SPECIMEN / Unknown Venipuncture / Unknown 04/08/2025 2:32 PM EST 04/08/2025 2:35 PM EST us Suzanne Peirce MD LAB BLOOD ORDERABLES Final Re sult [facility] [address] [place] [address], * Plasma Toxicology Screen (04/08/2025 2:32 PM EST) Acetaminophen Result,Blood <5 <=30 ug/mL 04/08/2025 3:11 PM EST [facility] Alcohol <10 <=10 mg/dL 04/08/2025 3:11 PM EST [facility] Salicylate Level, Blood <1 <=10 mg/dL 04/08/2025 3:11 PM EST [facility] Blood PERIPHERAL BLOOD SPECIMEN / Unknown Venipuncture / Unknown 04/08/2025 2:32 PM EST 04/08/2025 2:35 PM EST us Suzanne Pierce MD LAB BLOOD ORDERABLES Final Re sult [facility] [address] [place] [address], [place] * (ABNORMAL) Basic Metabolic Panel (04/08/2025 2:32 PM EST) Pathologist [facility] Sodium 136 136 - 145 mmol/L 04/08/2025 3:11 PM EST [facility] Potassium 4.2 3.5 - 5.1 mmol/L 04/08/2025 3:11 PM EST [facility] Chloride 100 98 - 107 mmol/L 04/08/2025 3:11 PM EST [facility] Total CO2/Bicarbonat e 28 22 - 29 mmol/L 04/08/2025 3:11 PM EST [facility] Anion Gap 8 2 - 15 mmol/L 04/08/2025 3:11 PM EST [facility] BUN 18 8 - 23 mg/dL 04/08/2025 3:11 PM EST [facility] Creatinine, Blood 1.60(H) 0.50 - 0.90 mg/dL 04/08/2025 3:11 PM EST [facility] Glucose, Blood 357(H) 74 - 109 mg/dL 04/08/2025 3:11 PM EST [facility] Calcium 8.9 8.8 - 10.2 mg/dL 04/08/2025 3:11 PM EST [facility] Estimated GFR(CKD-EPI) 36(L) >=60 mL/min/BSA 04/08/2025 3:11 PM EST [facility] Blood PERIPHERAL BLOOD SPECIMEN / Unknown Venipuncture / Unknown 04/08/2025 2:32 PM EST 04/08/2025 2:35 PM EST Suzanne iPerce MD LAB BLOOD ORDERABLES Final Re sult [facility] [address] [place] [address], [place] * Covid/Flu/RSV (Rapid) (04/08/2025 2:32 PM EST) Pathologist [facility] Coronavirus SARS-CoV-2 Not Detected Not Detected 04/08/2025 3:18 PM EST [facility] Influenza A Not Detected Not Detected by PCR 04/08/2025 3:18 PM EST [facility] Influenza B Not Detected Not Detected by PCR 04/08/2025 3:18 PM EST [facility] RSV by PCR Not Detected Not Detected by PCR 04/08/2025 3:18 PM EST [facility] Respiratory SWAB OF INTERNAL NOSE / Unknown Collection / Unknown 04/08/2025 2:32 PM EST 04/08/2025 2:35 PM EST [facility] - 04/08/2025 3:18 PM EST The [employer] Xpert SARS-CoV-2/ Flu/ RSV assay is intended for the qualitative detection of nucleic acid from SARS-CoV-2, Influenza A, Influenza B, and Respiratory Syncytial Virus. This assay has been authorized by the FDA under an Emergency Use Authorization (EUA) for use by clinical laboratories. Negative results must be combined with clinical observations and patient history. This assay has been authorized by the FDA under an Emergency Use Authorization (EUA) for use by clinical laboratories. Suzanne Pierce MD BODY FLUIDS AND STOOLS ORDERA BLES Final Result [facility] [address] [place] [address], documented in this encounter Visit Diagnoses Diagnosis Episode of recurrent major depressive disorder, unspecified depression episode severity- Primary Suicidal ideation Depression, unspecified depression type documented in this encounter Administered Medications Inactive Administered Medications - up to 3 most recent administrations Medication Order MAR Action Action Date Dose Rate Site atorvaSTATin (LIPITOR) tablet 80 mg 80 mg, Oral, Daily, First dose on 04/09/25 at 0900, Until Discontinued Given 04/12/2025 8:55 AM EST 80 mg Given 04/11/2025 8:16 AM EST 80 mg Given 04/10/2025 11:09 AM EST 80 mg cholecalciferol (VITAMIN D3) tablet 2,000 Units 2,000 Units, Oral, Daily, First dose on 04/09/25 at 0900, Until Discontinued Given 04/12/2025 8:55 AM EST 2,000 Units Given 04/11/2025 8:17 AM EST 2,000 Units Given 04/10/2025 11:10 AM EST 2,000 Units cloNIDine (CATAPRES) tablet 0.1 mg 0.1 mg, Oral, 2 times daily, First dose on Fri04/08/25 at 2100, Until Discontinued Given 04/12/2025 8:55 AM EST 0.1 mg Given 04/11/2025 8:51 PM EST 0.1 mg Given 04/11/2025 8:16 AM EST 0.1 mg docusate sodium (COLACE) capsule 100 mg 100 mg, Oral, 2 times daily, First dose on Fri04/08/25 at 2100, Until Discontinued Given 04/12/2025 8:55 AM EST 100 mg Given 04/11/2025 8:52 PM EST 100 mg Given 04/11/2025 8:17 AM EST 100 mg gabapentin (NEURONTIN) capsule 100 mg 100 mg, Oral, 3 times daily, First dose on Fri04/08/25 at 2200, Until Discontinued Given 04/09/2025 9:03 AM EST 100 mg Given 04/08/2025 9:14 PM EST 100 mg gabapentin (NEURONTIN) capsule 800 mg 800 mg, Oral, 3 times daily, First dose (after last modification) on Fri04/09/25 at 1600, Until Discontinued Given 04/12/2025 8:54 AM EST 800 mg Given 04/11/2025 9:38 PM EST 800 mg Given 04/11/2025 3:57 PM EST 800 mg hydrOXYzine HCL (ATARAX) tablet 25 mg 25 mg, Oral, 2 times daily PRN, Starting on Fri04/08/25 at 1919, Until Fri04/12/25 at 1701, anxiety Given 04/11/2025 6:19 PM EST 25 mg Given 04/10/2025 9:03 PM EST 25 mg Given 04/10/2025 1:34 PM EST 25 mg lisinopriL (ZESTRIL) tablet 20 mg 20 mg, Oral, Daily, First dose on Fri04/09/25 at 0900, Hold Parameters: SBP, Hold for SBP less than: 100 mmHg Given 04/12/2025 8:55 AM EST 20 mg Given 04/11/2025 8:17 AM EST 20 mg Given 04/10/2025 11:09 AM EST 20 mg methadone (DOLOPHINE) 10 mg/mL (concentrated) oral solution 53 mg 53 mg, Oral, Daily, First dose (after last modification) on Fri04/08/25 at 2030, Until Discontinued Given 04/11/2025 8:52 PM EST 53 mg Given 04/10/2025 8:56 PM EST 53 mg Given 04/09/2025 8:11 PM EST 53 mg ondansetron (ZOFRAN-ODT) disintegrating tablet 4 mg 4 mg, Oral, Every 8 hours PRN, Starting on Fri04/10/25 at 1324, Until Fri04/12/25 at 1701, nausea Given 04/11/2025 3:58 PM EST 4 mg Given 04/10/2025 8:56 PM EST 4 mg Given 04/10/2025 1:34 PM EST 4 mg promethazine (PHENERGAN) tablet 25 mg 25 mg, Oral, Every 8 hours PRN, Starting on Fri04/08/25 at 1939, Until Fri04/12/25 at 1701, nausea Given 04/11/2025 8:51 PM EST 25 mg Given 04/10/2025 1:54 PM EST 25 mg Given 04/08/2025 9:33 PM EST 25 mg sennosides (SENOKOT) tablet 8.6 mg 8.6 mg, Oral, 2 times daily, First dose on Fri04/08/25 at 2100, Until Discontinued Given 04/12/2025 8:55 AM EST 8.6 mg Given 04/11/2025 8:51 PM EST 8.6 mg Given 04/11/2025 8:17 AM EST 8.6 mg tiZANidine (ZANAFLEX) tablet 4 mg 4 mg, Oral, Every 8 hours PRN, Starting on Fri04/08/25 at 1939, Until Fri04/12/25 at 1701, muscle spasms Given 04/12/2025 9:02 AM EST 4 mg Given 04/11/2025 6:19 PM EST 4 mg Given 04/10/2025 8:56 PM EST 4 mg documented in this encounter Active and Recently Administered Medications Times are shown in EST. Scheduled Medication Order 04/10/2025 04/11/2025 04/12/2025 atorvaSTATin (LIPITOR) tablet 80 mg 80 mg, Oral, Daily, First dose on Fri04/09/25 at 0900, Until Discontinued 1109 (Given - Provider: Nafisa Gomez RN) 0816 (Given - Provider: Evelia Cavazos RN) 0855 (Given - Provider: Cedrick Noland RN) cholecalciferol (VITAMIN D3) tablet 2,000 Units 2,000 Units, Oral, Daily, First dose on Fri04/09/25 at 0900, Until Discontinued 1110 (Given - Provider: Nafisa Gomez RN) 0817 (Given - Provider: Evelia Cavazos RN) 0855 (Given - Provider: Cedrick Noland RN) cloNIDine (CATAPRES) tablet 0.1 mg 0.1 mg, Oral, 2 times daily, First dose on Fri04/08/25 at 2100, Until Discontinued 1110 (Given - Provider: Nafisa Gomez RN)2055 (Given - Provider: Casie Malhotra RN) 0816 (Given - Provider: Evelia Cavazos RN)2050 (Given - Provider: Leslie Ibarra RN) 0855 (Given - Provider: Cedrick Noland RN) docusate sodium (COLACE) capsule 100 mg 100 mg, Oral, 2 times daily, First dose on Fri04/08/25 at 2100, Until Discontinued 1109 (Given - Provider: Nafisa Gomez RN)2055 (Given - Provider: Casie Malhotra RN) 0817 (Given - Provider: Evelia Cavazos RN)2051 (Given - Provider: Leslie Ibarra RN) 0855 (Given - Provider: Cedrick Noland, RN) gabapentin (NEURONTIN) capsule 800 mg 800 mg, Oral, 3 times daily, First dose (after last modification) on Fri04/09/25 at 1600, Until Discontinued 1109 (Given - Provider: Nafisa Gomez RN)1626 (Given - Provider: Magalys Lang RN)2106 (Given - Provider: Casie Malhotra RN) 0817 (Given - Provider: Evelia Cavazos RN)155 (Given - Provider: Evelia Cavazos RN)213 (Given - Provider: Leslie Ibarra RN) 0854 (Given - Provider: Cedrick Noland, RN)1600 (Canceled Entry - Provider: Automatic Discharge Provider - Comment: Automatically canceled at discontinue of medication order) lisinopriL (ZESTRIL) tablet 20 mg 20 mg, Oral, Daily, First dose on Fri04/09/25 at 0900, Hold Parameters: SBP, Hold for SBP less than: 100 mmHg 1109 (Given - Provider: Nafisa Gomez RN) 0817 (Given - Provider: Evelia Cavazos, MARIELA) 0855 (Given - Provider: Cedrick Noland, RN) methadone (DOLOPHINE) 10 mg/mL (concentrated) oral solution 53 mg 53 mg, Oral, Daily, First dose (after last modification) on Fri04/08/25 at 2030, Until Discontinued 2055 (Given - Provider: Casie Malhotra, RN) 2051 (Given - Provider: Leslie Ibarra RN) sennosides (SENOKOT) tablet 8.6 mg 8.6 mg, Oral, 2 times daily, First dose on Fri04/08/25 at 2100, Until Discontinued 1110 (Given - Provider: Nafisa Gomez RN)2055 (Given - Provider: Casie Malhotra RN) 0817 (Given - Provider: Evelia Cavazos RN)2050 (Given - Provider: Leslie Ibarra RN) 0855 (Given - Provider: Cedrick Noland, RN) PRN Medication Order 04/10/2025 04/11/2025 04/12/2025 hydrOXYzine HCL (ATARAX) tablet 25 mg 25 mg, Oral, 2 times daily PRN, Starting on Fri04/08/25 at 1919, Until Fri04/12/25 at 1701, anxiety 0236 (Given - Provider: Rosy Hadley RN)1334 (Given - Provider: Nafisa Gomez RN)2103 (Given - Provider: Casie Malhotra, MARIELA) 181 (Given - Provider: Evelia Cavazos RN) ondansetron (ZOFRAN-ODT) disintegrating tablet 4 mg 4 mg, Oral, Every 8 hours PRN, Starting on Fri04/10/25 at 1324, Until Fri04/12/25 at 1701, nausea 1334 (Given - Provider: Nafisa Gomez RN)2055 (Given - Provider: Casie Malhotra RN) 1558 (Given - Provider: Evelia Cavazos RN) promethazine (PHENERGAN) tablet 25 mg 25 mg, Oral, Every 8 hours PRN, Starting on Fri04/08/25 at 1939, Until Fri04/12/25 at 1701, nausea 1354 (Given - Provider: Nafisa Gomez, RN) 2050 (Given - Provider: Leslie Ibarra, MARIELA) tiZANidine (ZANAFLEX) tablet 4 mg 4 mg, Oral, Every 8 hours PRN, Starting on Fri04/08/25 at 1939, Until Fri04/12/25 at 1701, muscle spasms 0022 (Given - Provider: Rosy Hadley, RN)2055 (Given - Provider: Casie Malhotra, MARIELA) 181 (Given - Provider: Evelia Cavazos RN) 0902 (Given - Provider: Cedrick Noland, RN) documented in this encounter Additional Health Concerns Infection Onset Date Last Indicated Resolved Time Rule-Out Respiratory Virus 04/08/2025 04/08/2025 1 06/08/2024 3:18 PM EST documented as of this encounter Care Teams Jointer Operator Relationship Specialty Start Date End Date Unknown, Provider, [address] [place] [id number] PCP - General 04/08/25 documented as of this encounter
[2025-04-12 17:55] VITALS: BP 132/78; PULSE 98; RESP 18; TEMP 36.8; O2SAT 98
--- NOTE | 2025-04-12 18:46 | PC.NURSE ---
Pt declined flu vaccine
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
--- NOTE | 2025-04-12 19:00 | HE.PHANOTE ---
Re Methadone Clarified with Amanda Narayan RN, pt was getting 57mg from [facility], but was staying at [facility] since 04/08/25 and they did not give her a dose. Pt is unsure when last dose was but it was before Apr 08.
[2025-04-12 21:02] LABS: Glucose, Whole Blood 271 mg/dL (60-115)
[2025-04-12 21:10] VITALS: BP 166/92; PULSE 90; RESP 18; TEMP 37.1; O2SAT 98
[2025-04-12] MEDS: Ketotifen Fumarate 0.025% Oph 5 ML DRPBTL 1 DROP EYE-BOTH (21:18)
[2025-04-12] MEDS: methADONE HCl 20 MG/2 ML ORAL.CONC 53 MG PO (22:10)
[2025-04-12] MEDS: Magnesium Hydrox/Alum Hydrox 30 ML ORAL.SUSP PO (22:13)
[2025-04-13 07:20] LABS: Glucose, Whole Blood 151 mg/dL (60-115)
[2025-04-13 07:36] VITALS: BP 116/73; PULSE 63; RESP 20; TEMP 36.2; O2SAT 98
[2025-04-13 08:07] LABS: Alanine Aminotransferase 102 U/L (0-31); Albumin Level 4.3 g/dL (3.5-5.0); Alkaline Phosphatase 192 U/L (39-117); Anion Gap 11 (12-20); Aspartate Amino Transferase 91 U/L (5-31); Blood Urea Nitrogen 16 mg/dL (9-16); Calcium 9.7 mg/dL (8.4-10.2); Carbon Dioxide 33 mmol/L (22-29); Chloride 101 mmol/L (96-108); Cholesterol 133 mg/dL (<200); Estimated Glomerular Filt Rate > 60; HDL Cholesterol 40 mg/dL (>40); Potassium 4.0 mmol/L (3.3-5.1); Sodium 141 mmol/L (135-145); Total Protein 7.6 g/dL (6.5-8.0); Triglycerides 125 mg/dL (<150)
[2025-04-13 08:22] LABS: Free T4 (Free Thyroxine) 1.01 ng/dL (0.71-1.85); Thyroid Stimulating Hormone 4.03 uIU/mL (0.32-4.0)
[2025-04-13 08:36] LABS: Folate 9.3 ng/mL (> or = 4.0); Vitamin B12 817 pg/mL (200-900)
[2025-04-13 08:37] VITALS: BP 120/74
[2025-04-13 08:38] VITALS: BP 120/74
--- NOTE | 2025-04-13 08:55 | HO.PM.IMCN ---
History of Present Illness Data of Consult Service Date: 04/13/25 Primary Care Provider: Unknown Physician HPI Reason for consult: Medical consult 64-year-old female with past medical history of ADHD, major depressive disorder, PTSD, substance use on methadone, diabetes, hypertension, hyperlipidemia, chronic kidney disease, COPD and obesity brought to the ED by her family secondary to worsening depression and suicidal ideation. In the ED her workup included a mild anemia with a H&H of 10.5 and 31.3. ECG demonstrated normal sinus rhythm with a first-degree AV block, metabolic panel was within normal limits. Creatinine of 1.6. Urine without evidence of infection. On exam patient's concern is her facial hair. She also does not have her teeth in place. Patient is upset that she is not able to obtain any of her belongings. He otherwise denies any health concerns. Review of Systems Review of Systems: Denies any shortness of breath, chest pain, headaches, dysuria, abdominal pain or discomfort, nausea, vomiting or diarrhea. Denies fever or chills. PMFSH Social History Patient Tobacco Use Status: Former Tobacco user Currently Displaying Signs/Symptoms of Drug Intoxication Withdrawal: No Have you been hit, kicked, punched, or otherwise hurt by someone within the past year? If so, by whom?: No Do you feel safe in your current relationship?: No Current Relationship Is there a partner from a previous relationship who is making you feel unsafe now?: No Are you made to feel afraid or neglected: No Advance Directives: No Advance Directives Information Provided: No Do you have thoughts of harming others: None Do you have a plan to hurt others: No Plan Recently lost weight without trying: No How much weight loss: Not applicable Eating poorly because of decreased appetite: No Nutrition screen score: 0 Nutrition Risks: No Nutritional Risk Patient : No : No Poor oral hygiene: No service: No Sexual orientation: Straight/Heterosexual Meds Allergies Allergy/AdvReac Type Severity Reaction Status Date / Time No Known Allergies Allergy Verified 04/12/25 17:41 Active Medications: Current Medications Acetaminophen (Acetaminophen 325 Mg Tablet) 650 mg PO Q6H PRN PRN Reason: Headache/Pain, Scale 1-10 Al Hydroxide/Mg Hydroxide (Magnesium Hydrox/Alum Hydrox 30 Ml Oral.Susp) 30 ml PO Q6H PRN PRN Reason: Heartburn/Nausea Last Admin: 04/12/25 22:13 Dose: 30 ml Atorvastatin Calcium (Atorvastatin Calcium 80 Mg Tablet) 80 mg PO DAILY [facility] Last Admin: 04/13/25 08:38 Dose: 80 mg Clonidine HCl (Clonidine Hcl 0.1 Mg Tablet) 0.1 mg PO DAILY PRN; Protocol PRN Reason: Anxiety Clonidine HCl (Clonidine Hcl 0.1 Mg Tablet) 0.1 mg PO DAILY [facility]; Protocol Last Admin: 04/13/25 08:38 Dose: 0.1 mg Clonidine HCl (Clonidine Hcl 0.2 Mg Tablet) 0.2 mg PO BEDTIME [facility]; Protocol Last Admin: 04/12/25 21:13 Dose: 0.2 mg Dextrose (Dextrose 50 % 25 Gm/50 Ml Syringe) 25 gm IVPUSH Q15M PRN; Protocol PRN Reason: per Hypoglycemia Standing Ord. Famotidine (Famotidine 20 Mg Tablet) 40 mg PO DAILY [facility] Last Admin: 04/13/25 08:38 Dose: 40 mg Gabapentin (Gabapentin 400 Mg Capsule) 800 mg PO TID [facility] Last Admin: 04/13/25 08:41 Dose: 800 mg Glucose (Glucose Gel 15 Gm Gel..Gram.) 15 gm PO Q15M PRN; Protocol PRN Reason: per Hypoglycemia Standing Ord. Hydroxyzine HCl (Hydroxyzine Hcl 25 Mg Tablet) 25 mg PO Q6H PRN PRN Reason: mild anxiety Last Admin: 04/12/25 21:13 Dose: 25 mg Insulin Human Lispro (Insulin Lispro 100 Unit/Ml 3 Ml Vial) 0 unit SUBCUT QIDACHS [facility]; Protocol Last Admin: 04/13/25 08:34 Dose: Not Given Ketotifen Fumarate (Ketotifen Fumarate 0.025% Oph 5 Ml Drpbtl) 1 drop EYE-BOTH BID [facility] Last Admin: 04/13/25 08:52 Dose: Not Given Lisinopril (Lisinopril 20 Mg Tablet) 20 mg PO DAILY [facility]; Protocol Last Admin: 04/13/25 08:37 Dose: 20 mg Magnesium Hydroxide (Milk Of Magnesia 30 Ml Oral.Susp) 30 ml PO DAILY PRN PRN Reason: Constipation Methadone HCl (Methadone Hcl 20 Mg/2 Ml Oral.Conc) 53 mg PO BEDTIME [facility] Last Admin: 04/12/25 22:10 Dose: 53 mg Nicotine (Nicotine 21 Mg Patch.Td24) 21 mg TRANSDERMA DAILY PRN PRN Reason: nicotine craving Nicotine Polacrilex (Nicotine Polacrilex 2 Mg Gum) 2 mg BUCCAL Q2H PRN PRN Reason: Nicotine Cravings Olanzapine (Olanzapine 5 Mg Tablet) 5 mg PO BID PRN PRN Reason: agitation Omeprazole (Omeprazole 20 Mg Capsule.Dr) 20 mg PO DAILY@0630 [facility] Last Admin: 04/13/25 06:45 Dose: 20 mg Promethazine HCl (Promethazine Hcl 25 Mg Tablet) 25 mg PO Q8H PRN PRN Reason: Nausea Last Admin: 04/13/25 08:42 Dose: 25 mg Tizanidine HCl (Tizanidine Hcl 4 Mg Tablet) 4 mg PO Q8H PRN PRN Reason: Muscle Spasm Last Admin: 04/13/25 08:39 Dose: 4 mg Trazodone HCl (Trazodone Hcl 50 Mg Tablet) 50 mg PO BEDTIME MRX1 PRN PRN Reason: Insomnia Vitamin D (Cholecalciferol (Vitamin D3) 25 Mcg Tablet) 50 mcg PO DAILY [facility] Last Admin: 04/13/25 08:37 Dose: 50 mcg Home Medications ?Medication ?Instructions ?Recorded ?Confirmed ?Last Taken ?Type atorvastatin 80 mg tablet 80 mg PO DAILY 04/12/25 04/12/25 Unknown History cholecalciferol (vitamin D3) 50 50 mcg PO DAILY 04/12/25 04/12/25 Unknown History mcg (2,000 unit) tablet clonidine HCl 0.1 mg tablet 0.1 mg PO DAILY 04/12/25 04/12/25 04/12/25 History 0.1mg clonidine HCl 0.1 mg tablet 0.1 mg PO DAILY PRN Anxiety 04/12/25 04/12/25 Unknown History clonidine HCl 0.1 mg tablet 0.2 mg PO BEDTIME 04/12/25 04/12/25 Unknown History famotidine 40 mg tablet 40 mg PO DAILY 04/12/25 04/12/25 Unknown History gabapentin 800 mg tablet 800 mg PO TID 04/12/25 04/12/25 04/12/25 History ibuprofen 800 mg tablet 800 mg PO Q8H PRN pain 04/12/25 04/12/25 Unknown History ketotifen fumarate 0.025 % (0.035 1 drp ophthalmic (eye) BID 04/12/25 04/12/25 Unknown History %) eye drops (Eye Itch Relief) lisinopril 20 mg tablet 20 mg PO DAILY 04/12/25 04/12/25 Unknown History methadone 10 mg/mL oral 57 mg PO DAILY 04/12/25 04/12/25 04/07/25 History concentrate (Methadone Intensol) pantoprazole 40 mg tablet,delayed 40 mg PO DAILY 04/12/25 04/12/25 Unknown History release promethazine 25 mg tablet 25 mg PO Q8H PRN nausea 04/12/25 04/12/25 Unknown History tizanidine 4 mg tablet 4 mg PO Q8H PRN muscle spasm 04/12/25 04/12/25 Unknown History Physical Exam Vital Signs and Narrative: Vital Signs: Last Vital Signs Temp 97.2 F 04/13/25 07:36 Pulse 63 04/13/25 07:36 Resp 20 04/13/25 07:36 BP 120/74 04/13/25 08:38 Pulse Ox 98 04/13/25 07:36 O2 Del Method Room Air 04/13/25 07:36 Alert and oriented X3, calm and cooperative. Answers questions. Neuro: CN II-X11 intact, no deficits, visual acuity intact EYES: PERRLA, EOM intact ENT: Hearing intact, MMM Cardiac: S1 S2 RRR, No ectopy Pulmonary: lungs clear to auscultation, No increased WOB. Abdominal: BS active in all 4 quadrants, no guarding or tenderness. Obese abdomen MSK: Strength 5/5 upper and lower extremities : Deferred Extremities: No edema in lower extremities Psych: Mood stable, Quiet and cooperative. Skin: Warm and dry, Intact Results Labs 04/13/25 07:33 Labs: Laboratory Results - last 24 hr 04/12/25 04/13/25 04/13/25 20:58 07:14 07:33 Anion Gap 11 L Estim Creat Clear Calc TNP Estimated GFR > 60 POC Glucose 271 H 151 H Random Glucose 149 H Estimat Average Glucose 301 Hemoglobin A1c % 12.1 H Calcium 9.7 Total Bilirubin 1.2 H AST 91 H ALT 102 H Alkaline Phosphatase 192 H Total Protein 7.6 Albumin 4.3 Triglycerides 125 Cholesterol 133 LDL Cholesterol, Calc 68 HDL Cholesterol 40 L Vitamin B12 817 Folate 9.3 TSH 4.03 H Free T4 1.01 Assessment and Plan (1) Type 2 diabetes mellitus: Status: Acute (2) HTN (hypertension): Status: Acute (3) HLD (hyperlipidemia): Status: Acute Plan 64-year-old female with past medical history as listed below presented to the ED, brought to ED by her family for increased depression and suicide ideation. She is admitted to inpatient psych for stabilization. ADHD/major depressive disorder/PTSD/substance abuse on methadone Treatment per psychiatric team Chronic kidney disease stage IIIB Baseline creatinine 1.7 EGFR 36 Avoid nephrotoxins Hypertension/hyperlipidemia Continue atorvastatin, clonidine, and lisinopril COPD Not in acute exacerbation Not on maintenance meds Type 2 diabetes Recent A1c 12.1 Patient reports that she was on metformin and Mounjaro as an outpatient Unable to bring in her Mounjaro due to distance of her family Will start Januvia and insulin sliding scale. She will need to follow up with the primary care outpatient. Metformin not restarted due to elevated liver functions Elevated LFTs Patient reports her LFTs have been elevated in the past She currently follows GI outpatient for this. Thank you for allowing me to participate in the care of this patient. Will follow with you, please notify medical provider with any changes in condition or concerns.
--- NOTE | 2025-04-13 09:42 | HO.PSYADMNOT ---
HPI Date of Service: 04/13/25 Chief Complaint: Major Depressve dsorder Sources of Information: patient interviewed, chart reviewed and crisis/core team assessment reviewed HPI Subjective Notes: Conditional Voluntary Narrative: Ms. Reyes is a 64 yo partnered W F with h/o MDD, PTSD, ADHD, OUD on methadone, cocaine use d/o in remission, type II DM, HTN, HLD, CKD, and COPD who self-presented to the [facility] ED due to worsening depession and passive SI. She was transferred to [facility] for safety and stabilization. Pt reports that she sought an inpatient psychiatric admission due to a lot of grief and loss and a ton of fucking regret . She endorses an extensive h/o trauma, including the loss of multiple family members and friends since childhood. Her dad in his 40's, both uncles in their 30's, her brother and nephew and her cousin who was like a sister was murdered. These losses all occurred years ago. [place] and is frequently triggered by the sounds of sirens. She isolates in her room and watches TV all day. She wants to move. Her partner has been staying w/ his mom to help care for her and her youngest son currently lives with her. She moved to her current residence before the pandemic. She got very sick from Covid and was afraid she would . Her mental health has significantly declined since then. She reports that she has a good support system, including her 5 surviving siblings, her mom, and partner of almost 20 yrs. Her partner is currently living w/ his mom in [place] to help care for her. Her youngest son is currently living w/ her. She reports having multiple failed antidepressant trials and is interested in TMS. Current psychotropic med list- mirtazapine- not currently taking due to lack of efficacy clonidine- 0.1 mg qam, 0.2 mg qhs hydroxyzine gabapentin 800 mg tid methadone 57 mg ROS: Depressed mood, feelings of guilt and regret, low motivation, anhedonia. Endorses a passive wish. Denies thoughts to harm herself, states that would be selfish but I fucking hate my life . Endorses intrusive reminders of trauma, avoidance, hypervigilance, difficulty trusting others Denies h/o AH/VH. Denies h/o parth Past Psychiatric History: Psychiatrist- Dr. Klaus Nation at [facility] Pt sees a therapist Works with [facility] H/O inpatient dual dx tx 8-12 yrs ago at [facility] and Dominique Eric Denies h/o self harm or violence Prior med trials: Pt reports trying multiple antidepressants, including Prozac- helped the most but caused insomnia and paranoia. She was most recently prescribed mirtazapine, which didn't help. Adderall rx'd for ADHD- felt jittery Medical Evaluation Reviewed: Yes [facility] Narrative: Chronic kidney disease stage IIIB Baseline creatinine 1.7 EGFR 36 Hypertension Hyperlipidemia COPD Type 2 diabetes- Recent A1c 12.1 Elevated LFTs- followed by GI Social History: Pt lives with her youngest son. Her 42 y/o son splits his time between living with pt and his father. Her youngest son lives in [place]. She has been twice. Her partner is currently staying w/ his mom to care for her. Raised in [place] primarily by her mother. She has 5 surviving siblings. Reports having a good support system from family Got GED. 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 She snorted pills, then started using fentanyl. She denies any opioid abuse x 5 yrs and has been on methadone thru [facility]. She reports having take homes x 1 yr. h/o cocaine use- denies recent use Vapes occasionally. Declines NRT Denies ETOH use Trauma History: Pt endorses extensive h/o trauma Diagnostics Vital Signs (24Hr): Vital Signs - 24 hr 04/12/25 17:55 04/12/25 21:10 04/13/25 07:36 Temperature 98.2 F 98.8 F 97.2 F Pulse Rate 98 90 63 Respiratory Rate 18 18 20 Blood Pressure 132/78 166/92 H 116/73 Pulse Oximetry 98 98 98 Oxygen Delivery Method Room Air Room Air Room Air 04/13/25 08:37 04/13/25 08:38 Temperature Pulse Rate Respiratory Rate Blood Pressure 120/74 120/74 Pulse Oximetry Oxygen Delivery Method Labs 04/13/25 07:33 Labs: Laboratory Results - last 48 hr 04/12/25 04/13/25 04/13/25 20:58 07:14 07:33 Sodium 141 Potassium 4.0 Chloride 101 Carbon Dioxide 33 H Anion Gap 11 L BUN 16 Creatinine 0.92 Estim Creat Clear Calc TNP Estimated GFR > 60 POC Glucose 271 H 151 H Random Glucose 149 H Estimat Average Glucose 301 Hemoglobin A1c % 12.1 H Calcium 9.7 Total Bilirubin 1.2 H AST 91 H ALT 102 H Alkaline Phosphatase 192 H Total Protein 7.6 Albumin 4.3 Triglycerides 125 Cholesterol 133 LDL Cholesterol, Calc 68 HDL Cholesterol 40 L Vitamin B12 817 Folate 9.3 TSH 4.03 H Free T4 1.01 Meds/Allergies Meds Home Medications ?Medication ?Instructions ?Recorded ?Confirmed ?Type atorvastatin 80 mg tablet 80 mg PO DAILY 04/12/25 04/12/25 History cholecalciferol (vitamin D3) 50 50 mcg PO DAILY 04/12/25 04/12/25 History mcg (2,000 unit) tablet clonidine HCl 0.1 mg tablet 0.1 mg PO DAILY 04/12/25 04/12/25 History clonidine HCl 0.1 mg tablet 0.1 mg PO DAILY PRN Anxiety 04/12/25 04/12/25 History clonidine HCl 0.1 mg tablet 0.2 mg PO BEDTIME 04/12/25 04/12/25 History famotidine 40 mg tablet 40 mg PO DAILY 04/12/25 04/12/25 History gabapentin 800 mg tablet 800 mg PO TID 04/12/25 04/12/25 History ibuprofen 800 mg tablet 800 mg PO Q8H PRN pain 04/12/25 04/12/25 History ketotifen fumarate 0.025 % (0.035 1 drp ophthalmic (eye) BID 04/12/25 04/12/25 History %) eye drops (Eye Itch Relief) lisinopril 20 mg tablet 20 mg PO DAILY 04/12/25 04/12/25 History methadone 10 mg/mL oral 57 mg PO DAILY 04/12/25 04/12/25 History concentrate (Methadone Intensol) pantoprazole 40 mg tablet,delayed 40 mg PO DAILY 04/12/25 04/12/25 History release promethazine 25 mg tablet 25 mg PO Q8H PRN nausea 04/12/25 04/12/25 History tizanidine 4 mg tablet 4 mg PO Q8H PRN muscle spasm 04/12/25 04/12/25 History Allergies Allergies Allergy/AdvReac Type Severity Reaction Status Date / Time No Known Allergies Allergy Verified 04/12/25 17:41 Mental Status Exam Mental Status Exam Narrative: Appearance: Casually dressed. She has a brown clip on bun over camilo hair. Somewhat disheveled. Good eye contact Attitude: Cooperative Speech: Excessive, needs frequent redirction. otherwise wnl Motor activity: Calm and without any tics, tremors or dyskinesias. Steady gait Mood: as noted above Affect: appropriate, reactive Thought process: Circumstantial Thought content: as noted above. Endorses PDW. Denies violent ideation Perception: Denies AH/VH and does not appear to respond to internal stimuli Alert/oriented in all spheres Cognition grossly intact Insight: intact Judgment: intact Assessment & Plan Assessment & Plan (1) MDD (major depressive disorder), recurrent severe, without psychosis: Status: Acute Code(s): F33.2 - Major depressive disorder, recurrent severe without psychotic features (2) PTSD (post-traumatic stress disorder): Status: Acute Code(s): F43.10 - Post-traumatic stress disorder, unspecified (3) Opioid use disorder, severe, on maintenance therapy, dependence: Status: Acute Code(s): F11.20 - Opioid dependence, uncomplicated (4) Cocaine use disorder in remission: Status: Acute Code(s): F14.91 - Cocaine use, unspecified, in remission Plan Ms. Reyes is a 64 yo partnered W F with h/o MDD, PTSD, ADHD, OUD on methadone, cocaine use d/o in remission, type II DM, HTN, HLD, CKD, and COPD who self-presented to the [facility] ED due to worsening depression and passive SI. She was transferred to [facility] for safety and stabilization. Pt endorses an extensive h/o trauma and has been grieving the losses of multiple loved ones (all occurred years ago). She is stressed w/ her current housing since she frequently hears sirens and it triggers her PTSD. It's not clear if there have been more acute stressors contributing to her worsening depression, as her thought process is circumstantial and she needed frequent redirection. She sought a voluntary inpatient psychiatric admission due to worsening depression but is stressed about being far from her support system at home. She has a h/o multiple failed antidepressant trials and can't recall all of them. Plan: Admitted to [facility] for safety and stabilization Legal status- CV 15 min safety checks Continue current home meds for now. Not currently taking mirtazapine Pt provided consent for me to communicate w/ her outpatient psychiatrist for care coordination. Will reach out tomorrow Medical H&P completed by hospitalist and reviewed by t/w. Input appreciated Chronic kidney disease stage IIIB -Baseline creatinine 1.7 EGFR 36 -Avoid nephrotoxins Hypertension/hyperlipidemia -Continue atorvastatin, clonidine, and lisinopril COPD -Not in acute exacerbation -Not on maintenance meds Type 2 diabetes -Recent A1c 12.1 - reports that she was on metformin and Mounjaro as an outpatient -Unable to bring in her Mounjaro due to distance of her family -Will start Januvia and insulin sliding scale. -She will need to follow up with the primary care outpatient. -Metformin not restarted due to elevated liver functions Elevated LFTs -Patient reports her LFTs have been elevated in the past -She currently follows GI outpatient for this. Patient educated on: diagnosis, medication risk/benefits and therapeutic strategies Informed Consent: understands Reason for continued inpatient stay Substantial Risk for: med/psych decompensation Statement Statement: I have reviewed the history and physical and performed a pertinent examination on my patient. No changes have occurred unless specified. If the History and Physical was not performed prior to admission, the Hospitalist's service will be consulted for completing the admission physical. Time Spent With Patient Time: Total time managing care of this patient today ____ minutes.
[2025-04-13 11:41] LABS: Glucose, Whole Blood 257 mg/dL (60-115)
--- OUTSIDE RECORDS SUMMARY | 2025-04-13 13:32 | XMS_ITS | Encounter Summary ---
Author Organization [employer] Address [address] [place] [address] Care Team Providers Care Bead Maker Name Role Phone Octavio Lopez MD Primary Care Provider Octavio Lopez MD Unavailable [phone] Bryn Mike MD Unavailable [phone] Klaus Christianson MD Unavailable [phone] Inder Real PsyD Unavailable [phone] Encounter Details Date Type Department Care Team (Late st Contact Info) Description 02/14/2022 Telephone [facility] - [facility] - Orthopedics [address] [place] [address], [address] [place] [address] Fabi Alexis [address] [place] [address] Social History Tobacco Use Types Packs/Day Years Used Date Smoking Tobacco: Former Cigarettes 0.5 5 0 07/06/2015 - 07/06/2020 Smokeless Tobacco: Never Alcohol Use Standard Drinks/Week Comments No 0 (1 standard drink = 0.6 oz pure alcohol) former etoh use, not now on medications, last drink ~4-6 months ago Comments No Sex and Gender Information Value Date Recorded Sex Assigned at Not on file Legal Sex Female 5:33 PM EDT Gender Identity Female 06/19/2023 6:50 AM EST Sexual Orientation Straight 07/30/2023 10 :54 AM EST documented as of this encounter Functional Status * (RETIRED) Are you deaf or do you have difficulty hearing? Answer Date of Assessment Author No 07/20/2020 10:00 PM Osmar Quick RN * (RETIRED) Are you blind or do you have difficulty seeing? Answer Date of Assessment Author No 07/20/2020 10:00 PM Osmar Quick RN * (RETIRED) Do you have difficulty walking or climbing stairs? Answer Date of Assessment Author No 07/20/2020 10:00 PM Osmar Quick RN * (RETIRED) Do you have difficulty dressing or bathing? Answer Date of Assessment Author No 07/20/2020 10:00 PM Osmar Quick RN * (RETIRED) Because of a physical, mental, or emotional condition, do you have difficulty doing errands such as visiting a doctor's office or shopping? Answer Date of Assessment Author Yes 07/20/2020 10:00 PM Osmar Quick RN documented as of this encounter Mental Status * (RETIRED) Because of a physical, mental, or emotional condition, do you have serious difficulty concentrating, remembering, or making decisions? Answer Entry Date Author No 07/20/2020 10:00 PM Osmar Quick RN documented in this encounter Plan of Treatment Upcoming Encounters Date Type Department Care Team (Latest Contact Info) Description 05/06/2025 12:40 PM [facility] Hospital Encounter [facility] Operating Room [address] [place] [phone] Sacha Vicente Jr., MD [address] [place] [phone] 05/06/2025 12:40 PM EST - 05/06/2025 1:10 PM EST Surgery [facility] Operating Room [address] [place] [phone] Sacha Vicente Jr., MD [address] [place] [phone] EGD (ESOPHAGOGASTRODUOD ENOSCOPY) Scheduled Procedures Name Priority Associated Diagnoses Date/Ti me EGD (ESOPHAGOGASTRODUODENOS COPY) Nausea and vomiting, unspecified vomiting type Abdominal pain, epigastric 05/06/2025 12:40 PM EST documented as of this encounter Goals Goal Patient Goal Type Associated Problems Recent Progress Patient-Stated? Author Quit smoking / using tobacco Lifestyle (Healthcare Team Goals) Pat Opal OrozcoJu documented as of this encounter Visit Diagnoses Not on filedocumented in this encounter Additional Health Concerns Infection Onset Date Last Indicated Resolved Time Rule out COVID-19 09/15/2024 09/15/2024 09/16/2024 12:02 AM EDT documented as of this encounter Care Teams Bead Maker Relationship Specialty Start Date End Date Octavio Lopez MD [address] [place] [address] [phone] PCP - General Internal Medicine 12/10/13 Octavio Lopez MD [address] [place] [address] [phone] PCP - Insurance PCP 02/14/16 Bryn Mike MD [address] [place] [phone] Psychiatrist [facility] 11/09/19 11/15/22 Klaus Christianson MD [address] [place] [address] [phone] Physician Psychiatry - General 03/03/25 Inder Real PsyD [address] [place] [phone] Psych Fellow Psychology 03/03/25 documented as of this encounter
--- OUTSIDE RECORDS SUMMARY | 2025-04-13 13:32 | XMS_ITS | Encounter Summary ---
Author Organization [employer] Address [address] [place] [address] Care Team Providers Care Windows Application Administrator Name Role Phone Octavio Lopez MD Primary Care Provider Octavio Lopez MD Unavailable [phone] Bryn Mike MD Unavailable [phone] Klaus Christianson MD Unavailable [phone] Inder RealyD Unavailable [phone] Encounter Details Date Type Department Care Team (Late st Contact Info) Description 02/28/2022 Brief Note [facility] - Psychiatry [address] [place] [phone] Teresa Robles [address] [place] [address] Social History Tobacco Use Types Packs/Day Years [...] of Assessment Author No 07/20/2020 10:00 PM EST Osmar Garcia RN * (RETIRED) Are you blind or [...] (Latest Contact Info) Description 05/06/2025 12:40 PM EST Hospital Encounter [facility] - Operating Room [address] [place] [phone] Sacha Vicente Jr., MD [address] [place] [phone] 05/06/2025 12:40 PM EST - 05/06/2025 1:10 PM EST Surgery [facility] - Operating Room [address] [place] [phone] Sacha Vicente Jr., MD [address] [place] [phone] EGD (ESOPHAGOGASTRODUOD ENOSCOPY) Scheduled Procedures Name Priority Associated Diagnoses Date/Ti me EGD (ESOPHAGOGASTRODUODENOS COPY) Nausea and vomiting, unspecified vomiting type Abdominal pain, epigastric 05/06/2025 12:40 PM EST documented as of this encounter Goals Goal Patient Goal Type Associated Problems Recent Progress Patient-Stated? Author Quit smoking / using tobacco Lifestyle (Healthcare Team Goals) No Opal Orozco documented as of this encounter Visit Diagnoses Not on filedocumented in this encounter Additional Health Concerns Infection Onset Date Last Indicated Resolved Time Rule out COVID-19 09/15/2024 09/15/2024 09/16/2024 12:02 AM EDT documented as of this encounter Care Teams Windows Application Administrator Relationship Specialty Start Date End Date Octavio Lopez MD [address] [place] [address] [phone] PCP - General Internal Medicine 12/10/13 Octavio Lopez MD [address] [place] [address] [phone] PCP - Insurance PCP 02/14/16 Bryn Mike MD [address] [place] [address] [phone] Psychiatrist [facility] 11/09/19 11/15/22 Klaus Christianson MD [address] [place] [address] [phone] Physician Psychiatry - General 03/03/25 Inder Real, Emerson [address] [place] [address] Psych Fellow Psychology 03/03/25 documented as of this encounter
--- OUTSIDE RECORDS SUMMARY | 2025-04-13 13:33 | XMS_ITS | Encounter Summary ---
Author Organization [employer] Address [address] [place] [address] Care Team Providers Care Information Technology Officer Name Role Phone Octavio Lopez MD Primary Care Provider Octavio Lopez MD Unavailable [phone] Klaus Christianson MD Unavailable [phone] Inder Real Unavailable [phone] Reason for Referral * Consult and Treat (Routine) - Closed Specialty Diagnoses / Procedures [facility]erred To Contact Gastroenterology Diagnoses Chronic nausea Octavio Lopez MD [address] [place] [address] Phone: tel: fax: Vinod Odell MD [address] [place] [address] Phone: tel: fax: Referral ID Status Reason Start Date Expiration Date V isits Requested Visits Authorized [id number] Closed Specialty Services Required 12/04/2023 07/26/2024 6 6 Scheduling Instructions Please call the Specialties Scheduling Center ([facility]) at select option 1 and then option 4 and one of our Specialties Schedulers will assist you in scheduling your indicated referral. Comments DO NOT USE FOR OPEN ACCESS. PLEASE USE 9010.5 - REFERRAL TO OPEN ACCESS COLONOSCOPY OR 9010.6 - REFERRAL TO OPEN ACCESS UPPER ENDOSCOPY. Please describe the clinical question: R11.0 (ICD-10-CM) - Chronic nausea REFERRAL REQUEST- PROVIDER, PLEASE REVIEW AND SIGN ORDER IF APPROPRIATE HOW IS REFERRAL BEING REQUESTED: phone WHO IS REFERRAL BEING REQUESTED BY: Patient REFERRED TO SPECIALTY: Gastroenterology DIAGNOSIS/CHIEF COMPLAINT: R11.0 (ICD-10-CM) - Chronic nausea HAVE YOU SEEN YOUR PCP FOR THIS ISSUE: yes HAVE YOU SEEN YOUR PCP WITHIN THE LAST YEAR: yes [facility] PROVIDER: DOS: NPI: NUMBER OF VISITS: LOCATION: PHONE: FAX: For further correspondence/information please refer to the contact information below: Maria Luisa Mcginnis [facility] DEPARTMENT [address] [facility] [address] Office Phone: No information on file. Office Fax: No information on file. Reason for Visit * Reason Onset Date Comments Referral 11/10/2023 Encounter Details Date Type Department Care Team ([facility] Contact Info) Description 11/10/2023 Telephone [facility] DEPARTMENT [address] [place] [address] Maria Luisa Gaytan Referral Social History Tobacco Use Types Packs/Day Years [...] PM EST Osmar Garcia RN * (RETIRED) Do you have difficulty walking or climbing stairs? Answer Date of Assessment Author No 07/20/2020 10:00 PM EST Colon, B logan Fisher RN * (RETIRED) Do you have difficulty dressing or bathing? Answer Date of Assessment Author No 07/20/2020 10:00 PM EST Colon, B logan Fisher RN * (RETIRED) Because of a physical, mental, or emotional condition, do you have difficulty doing errands such as visiting a doctor's office or shopping? Answer Date of Assessment Author Yes 07/20/2020 10:00 PM EST Colon, B logan Fisher RN documented as of this encounter Mental Status * (RETIRED) Because of a physical, mental, or emotional condition, do you have serious difficulty concentrating, remembering, or making decisions? Answer Entry Date Author No 07/20/2020 10:00 PM EST Colon, B logan Fisher RN documented in this encounter Miscellaneous Notes * Telephone Encounter - Maria Luisa Mcginnis - 11/10/2023 10:48 AM EDT DO NOT USE FOR OPEN ACCESS. PLEASE USE 9010.5 - REFERRAL TO OPEN ACCESS COLONOSCOPY OR 9010.6 - REFERRAL TO OPEN ACCESS UPPER ENDOSCOPY. Please describe the clinical question: R11.0 (ICD-10-CM) - Chronic nausea REFERRAL REQUEST- PROVIDER, PLEASE REVIEW AND SIGN ORDER IF APPROPRIATE HOW IS REFERRAL BEING REQUESTED: phone WHO IS REFERRAL BEING REQUESTED BY: Patient REFERRED TO SPECIALTY: Gastroenterology DIAGNOSIS/CHIEF COMPLAINT: R11.0 (ICD-10-CM) - Chronic nausea HAVE YOU SEEN YOUR PCP FOR THIS ISSUE: yes HAVE YOU SEEN YOUR PCP WITHIN THE LAST YEAR: yes [facility] PROVIDER: DOS: NPI: NUMBER OF VISITS: LOCATION: PHONE: FAX: documented in this encounter Plan of Treatment Upcoming Encounters Date Type Department Care Team (Latest Contact Info) Description 05/06/2025 12:40 PM [facility] Hospital Encounter [facility] - Operating Room [address] [place] [phone] Sacha Vicente Jr., MD [address] [place] [address] 05/06/2025 12:40 PM EST - 05/06/2025 1:10 PM EST Surgery [facility] - Operating Room [address] [place] [phone] Sacha Vicente Jr., MD [address] [place] [address] EGD (ESOPHAGOGASTRODUOD ENOSCOPY) Scheduled Procedures Name Priority Associated Diagnoses Date/Ti me EGD (ESOPHAGOGASTRODUODENOS COPY) Nausea and vomiting, unspecified vomiting type Abdominal pain, epigastric 05/06/2025 12:40 PM EST documented as of this encounter Goals Goal Patient Goal Type Associated Problems Recent Progress Patient-Stated? Author Quit smoking / using tobacco Lifestyle (Healthcare Team Goals) Opal Scott documented as of this encounter Visit Diagnoses Diagnosis Chronic nausea Nausea alone Nausea and vomiting, unspecified vomiting type Abdominal pain, epigastric documented in this encounter Additional Health Concerns Active Problems Noted Date Diagnosed Date [facility] PATIENT RESOURCE COORDINATION 04/10/2022 Infection Onset Date Last Indicated Resolved Time Rule out COVID-19 09/15/2024 09/15/2024 09/16/2024 12:02 AM EDT documented as of this encounter Care Teams Information Technology Officer Relationship Specialty Start Date End Date Octavio Lopez MD [address] [place] [phone] PCP - General Internal Medicine 12/10/13 Octavio Lopez MD [address] [place] [phone] PCP - Insurance PCP 02/14/16 Klaus Christianson MD [address] [place] [phone] Physician Psychiatry - General 03/03/25 Inder Real, Emerson [address] [place] [phone] Psych Fellow Psychology 03/03/25 documented as of this encounter
--- OUTSIDE RECORDS SUMMARY | 2025-04-13 13:33 | XMS_ITS | Clinical Summary ---
Author Organization [facility] For [facility] ianme Address [address] [place] [address] Care Team Providers Care Furniture Mover Driver Name Role Phone Lg Bailey MD Primary Care Provider Lg Bailey MD Unavailable [phone] Klaus Christianson MD Unavailable [phone] Inder Real PsyD Unavailable [phone] Allergies No known active allergies Medications methadone (DOLOPHINE) 10 mg/mL solutionIndicatio ns:Patient on methadone maintenance therapy,Constipat ion due to opioid therapy Take 53 mg by mouth in the morning. rx by spectrum. 022 Active lisinopril (ZESTRIL) 20 MG tablet Take 1 tablet by mouth daily 90 tablet 3 024 2024 Active atorvastatin (LIPITOR) 80 MG tabletIndications :Hyperlipidemia, unspecified hyperlipidemia type Take 1 tablet by mouth daily 90 tablet 3 025 2025 Active pantoprazole (PROTONIX) 40 MG tabletIndications :Nausea Take 1 tablet by mouth daily 90 tablet 3 025 2025 Active gabapentin (NEURONTIN) 800 MG tabletIndications :Chronic left-sided low back pain with left-sided sciatica Take 1 tablet by mouth 3 (three) times daily 270 tablet 3 025 2025 Active ibuprofen (ADVIL) 800 MG tablet Take 1 tablet by mouth every 8 (eight) hours as needed for Pain 90 tablet 2025 Active cholecalciferol (VITAMIN D3) 2000 UNIT tabletIndications :Vitamin D deficiency Take 1 tablet by mouth daily 30 tablet 2025 Active Blood Glucose Monitoring Suppl (BLOOD GLUCOSE MONITORING TESTS) KIT Use two times daily. Dispense glucometer that is covered by insurance. ICD Code E11.69 1 kit 2025 Active glucose blood test strip Use two times daily. Dispense test strips covered by insurance. ICD Code E11.69 100 strip 2025 Active Lancets Use two times daily. Dispense lancets that are covered by insurance. ICD Code E11.69 100 each 2025 Active tirzepatide (MOUNJARO) 2.5 MG/0.5ML sc auto-injector Inject 2.5 mg under the skin once a week Active diclofenac (VOLTAREN) 1 % GEL GelIndications:[place] pain of left knee Apply 2 g topically in the morning and 2 g at noon and 2 g in the evening and 2 g before bedtime. 100 g Active bisacodyl (DULCOLAX) 5 MG EC tablet Take 8 tablets by mouth See Admin Instructions Take as directed prior to colonoscopy 8 tablet 2025 Active Simethicone 80 MG TABS Take 4 tablets by mouth See Admin Instructions Take as directed prior to colonoscopy. 4 tablet 2025 Active mirtazapine (REMERON) 7.5 MG tablet Take 0.5 tablets by mouth nightly for 4 days, THEN 1 tablet nightly for 14 days, THEN 2 tablets nightly. 76 tablet Active docusate sodium (COLACE) 100 MG capsule TAKE 1 CAPSULE BY MOUTH IN THE MORNING AND 1 CAPSULE BEFORE BEDTIME. 180 capsule 3 025 2025 Active cloNIDine (CATAPRES) 0.1 MG tablet Take 1 tablet by mouth every morning AND 2 tablets nightly. May also take 1 tablet daily as needed. 120 tablet 3 025 2024 Active gabapentin (NEURONTIN) 100 MG capsule Take 1 capsule by mouth in the morning and 1 capsule at noon and 1 capsule before bedtime. 90 capsule 2 025 2024 Active VENTOLIN HFA 108 (90 Base) MCG/ACT inhaler Inhale 2 puffs into the lungs every 6 (six) hours as needed for Wheezing 18 g 5 025 2025 Active SENNA-TIME 8.6 MG tablet Take 1 tablet by mouth in the morning and 1 tablet before bedtime. 60 tablet 11 025 2025 Active promethazine (PHENERGAN) 25 MG tablet Take 1 tablet by mouth every 8 (eight) hours as needed for Nausea 90 tablet 1 025 2024 Active tiZANidine (ZANAFLEX) 4 MG tablet Take 1 tablet by mouth every 8 (eight) hours as needed for SPASM 90 tablet 2 2025 Active famotidine (PEPCID) 40 MG tablet Take 1 tablet by mouth daily 30 tablet 2 025 2025 Active ketotifen fumarate (ZADITOR) 0.035 % ophthalmic solution Place 1 drop into both eyes in the morning and 1 drop before bedtime. 10 mL 11 024 2024 tiZANidine (ZANAFLEX) 4 MG tablet Take 1 tablet by mouth every 8 (eight) hours as needed for SPASM 90 tablet 2 025 2024 Discontinued famotidine (PEPCID) 40 MG tablet Take 1 tablet by mouth daily 30 tablet 2 2024 Discontinued promethazine (PHENERGAN) 25 MG tablet Take 1 tablet by mouth every 8 (eight) hours as needed for Nausea 90 tablet 1 2024 Discontinued Active Problems Patient Care Coordination No te Formatting of this note migh t be different from the original. service department manager Lamar [phone] 01/22/23. Maddie Garcia PA-C Problem Noted Date Diagnosed Date Skin lesion of cheek 09/20/2024 Assessment & Plan (09/20/2024 8:36 AM EDT): Present for ~ 1 year, slowly enlarging. Limited to R cheek. Photo for telederm consult placed. Acute pain of left knee 09/15/2024 Assessment & Plan (09/20/2024 8:35 AM EDT): Unable to address given other concerns. Encouraged trial of diclofenac gel. Scheduled repeat OV with investment underwriter. CKD (chronic kidney disease) stage 4, GFR 15-29 ml/min 08/10/2024 Assessment & Plan (09/20/2024 8:33 AM EDT): Evaluated by nephrology 02/2024. Did not complete labs and missed follow up. Last BMP in January with Cr of 2.0 and GFR of 28. Also with hx of urinary retention requiring catheter in past. Orders released from specialist team. Encouraged follow up with nephrology. Urinary retention 02/18/2024 Polypharmacy 02/18/2024 Assessment & Plan (02/27/2024 1:36 PM EDT): Identified a number of discrepancies in medication reconciliation from [facility] team. Called team directly who verified the only 3 medications ordered at time of visit were senna, ampicillin and clonidine. Assessment & Plan (02/18/2024 5:12 PM EDT): Concern for polypharmacy and risk of sedation re: methadone, BH meds and pain regimen. Patient reports she also took 1/2 tablet of klonopin purchased from [employer] today which is likely causing the drowsiness noted throughout the visit. [facility] Option #4 02/03/2024 Overview (04/11/2025): ..[facility] For urgent issues (at any time), providers should call [facility]'s Provider Line at (Option #4). The [facility] care team provides care coordination, clinical care, psychosocial and/or long-term support services to patients over the age of 2121 years old. The care team consists of a telephonic Health Professional and Community Clinicians, including an Advanced Poultry Processing Supervisor, Registered Nurse, Behavioral Health Specialist, and a Health Summer Nanny. Health Professional: Merced Morgan Hours: 8:30-5:00PM EPIC access: No Contact via [facility]'s Provider Line (for providers only): The number is (Option #4). Patients should contact [facility]'s main number: Hypomagnesemia 01/28/2024 Assessment & Plan (01/28/2024 5:15 PM EDT): Hx of low magnesium with labs done by outside ED. Agrees to re-check. Suprapubic pressure 01/28/2024 Assessment & Plan (01/28/2024 5:15 PM EDT): Endorsing suprapubic pressure, no dysuria. Agrees to UA with reflex. Skin picking habit 11/20/2023 Assessment & Plan (11/20/2023 3:45 PM EDT): Hx of skin picking. Denies fevers. No erythematous/swollen lesions on video today. Agrees to bactroban in case of 2/2 bacterial infection. Other specified hypothyroidism 07/31/2023 Overview (01/28/2024): Summary: Component Latest Ref Rng 07/23/2023 1:01 PM TSH (THYROID STIM HORMONE) 0.270 - 4.200 uIU/mL 4.280 (H) FREE THYROXINE 0.92 - 1.68 ng/dL 0.74 (L) Legend: Assessment & Plan (01/28/2024 5:09 PM EDT): Last TSH mildly elevated with low T4 (confirms hypothyroidism). Has not been using levo for past week. Wasn't sure if this was causing side effects. Does have number of chronic symptoms we are exploring and waiting for further work up with specialist team however. Agrees to repeat. If abnormal, strongly encouraged repeat trial of the levothyroxine. Return precautions discussed with patient. Patient verbalizes understanding and is in agreement with plan. Assessment & Plan (11/20/2023 3:39 PM EDT): Has not been using synthroid regularly. Was reporting very hot skin (ears) while using this medication. Can repeat labs at future visit to discuss if ongoing treatment is warranted. Assessment & Plan (09/04/2023 3:55 PM EDT): Has been on synthroid x 2 weeks. Tolerating well. Feels like hot flashes have improved some. Will need TSH in ~ 1 month for monitoring. Agrees to OV at that time. Assessment & Plan (08/08/2023 11:50 AM EDT): Has not had a chance to start the synthroid yet. Just delivered yesterday. Reminded pt to take on empty stomach. Will need repeat TSH in 6 weeks. Assessment & Plan (07/31/2023 6:25 PM EST): Elevated TSH with low T4, c/w hypothyroidism. Agrees to trial of levo 25 mcg. /SE reviewed. Discussed taking on empty stomach. Will need repeat TSH in 6 weeks. Return precautions discussed with patient. Patient verbalizes understanding and is in agreement with plan. Common bile duct dilation 07/31/2023 Overview (07/31/2023): 07/2023: Biliary: Mild intrahepatic and extrahepatic biliary ductal dilatation. The common bile duct measures 10 mm. Pulmonary nodule (07/30/23) 07/31/2023 Overview (07/31/2023): Lower thorax: A 3 mm left lower lobe nodule and a 4 mm right lower lobe nodule are unchanged (series 2 image 42). A 4 mm right middle lobe nodule is not included in the [id number] of the previous abdominal CT (series 2 image 1). Assessment & Plan (07/31/2023 6:22 PM EST): Incidental finding on CT abdomen. 3 mm left lower lobe nodule and 4 mm R lower lobe nodule. She is a current vaper and previous smoker. Discussed need for dedication lung CT in 1 year. Will update health maintenance. Large breasts 07/31/2023 Assessment & Plan (07/31/2023 6:23 PM EST): Hx of large breasts. She is interested in a reduction. Agrees to breast center referral. Hot flashes 07/23/2023 Assessment & Plan (01/28/2024 5:18 PM EDT): Endorsing sxs since May 2023. She is post-menopausal. Was found to have hypothyroidism when last checked which is not c/w symptoms. Will see if lab can add on quant gold. Return precautions discussed with patient. Patient verbalizes understanding and is in agreement with plan. Assessment & Plan (07/23/2023 5:35 PM EST): Has noticed after MALACHI 06/19/2023. Tried outreaching to ortho team to see if SE. She is post-menopausal. Hx of tubal ligation in 2001. Does have FH of thyroid disorder. Agrees to check TSH today. Will outreach to ortho team, do not suspect MALACHI would continue contributing to sxs based on timing of last injection. Rectus diastasis 01/22/2023 Assessment & Plan (01/22/2023 3:17 PM EDT): Exam most c/w rectus diastasis Reviewed with patient. Enlarged lymph node in neck 01/22/2023 Overview (03/19/2023): 02/2023 IMPRESSION: Small left supraclavicular lymph node not enlarged by size criteria. Assessment & Plan (01/22/2023 3:17 PM EDT): Patient reports this has been present for some time. Agrees to US for further work up. Denies fevers, unintentional weight loss. Hiatal hernia 01/22/2023 MARCELINA (acute kidney injury) 01/18/2022 Overview (02/27/2024): Summary: -evaluated by nephrology 02/2024 MARCELINA vs MARCELINA on CKD: Risk factors for the development of CKD include type 2 diabetes mellitus, hypertension, NSAID use. She had a CT with contrast on 02/04, therefore it is possible that her elevated creatinine on 02/10 was related to a contrast- induced nephropathy. In addition, her urinary retention is also a likely contributor the development of MARCELINA. I suspect that she does have some underlying chronic kidney disease in the setting of hypertension and hypertension and diabetes. I recommend we repeat BMP and also check Cystatin C, urinalysis. Agree with urology follow-up, and it looks like she has an appointment with urology on 03/04. Continue to hold MARY inhibitor for now, would benefit from resuming after resolution of her MARCELINA. We discussed the importance of good blood pressure and blood sugar control to prevent the progression of CKD. Recommend low sodium diet, <2 g/day. #BP/Volume management: -Advised pt to check BPs at home and keep a log. She plans to reach out to PCP to assist with this. -Goal: < 130/80 -Continue Clonidine 0.1 mg twice daily. Advised her that she should not stop taking this medication as it can cause a significant rebound hypertension as when she had run out of the medication 2 weeks ago. #Anemia of CKD: -Hgb 11.1 -iron studies ordered. #Mineral Bone Disease: Will check Ca, Phos, Mg, Alb, PTHi, VitD Assessment & Plan (02/27/2024 1:33 PM EDT): Recently connected with nephrology. Needs repeat labs drawn. Aware to hold ACEI in setting of MARCELINA for now. BP was at goal during last OV with investment underwriter, reports it was severely elevated durng Kyle petty (190s) and was restarted on clonidine 0.1 mg BID by Kyle. Return precautions discussed with patient. Patient verbalizes understanding and is in agreement with plan. Assessment & Plan (02/18/2024 5:11 PM EDT): Recent ED visit for MARCELINA (GFR 43>>17//Cr 1.4>>3.0) from 01/27-02/10. Did have abdominal CT 02/04 which may have contributed. Found to have some urinary retention as well. Lisinopril held in ED--BP normotensive today. RX discontinued. Never picked up the Lokelma. Given K was within normal range on discharge--discussed not starting until she has visit with nephrology on 02/23. Patient is also wondering when she can have thomas cath removed. Paged surgical team--they recommended contacting urology dept to arrange for sooner eval (currently scheduling in April). Return precautions discussed with patient. Patient verbalizes understanding and is in agreement with plan. Assessment & Plan (01/22/2023 2:55 PM EDT): Hx of MARCELINA. Agrees to repeat CMP today. Type 2 diabetes mellitus with morbid obesity Overview (01/20/2022): 06/2021- BMI is 43.6 Assessment & Plan (01/28/2024 5:13 PM EDT): Current BMI 44.63 (increased from previous 42.43) Last A1c 8.4. Agrees to repeat A1c/microalbumin today. Not on any medications at this time. Did not tolerate metformin d/t nausea (although hx of chronic nausea)Has also tried victoza in the past which exacerbated chronic nausea. Has Mounjaro at home, but has not begun,.Patient does have hx of chronic nausea. Counseled on GI side effects. Patient would like to proceed. . Return precautions discussed with patient. Patient verbalizes understanding and is in agreement with plan. Assessment & Plan (11/20/2023 3:42 PM EDT): Current BMI 42.43. Not on any medications at this time. Did not tolerate metformin d/t nausea (although hx of chronic nausea)Has also tried victoza in the past which exacerbated chronic nausea. Was finally able to confirm no FH of medullary thyroid cancer. Is interested in trying an agent like Mounjaro. Will see if approved by pharmacy/insurance. Will be due for repeat A1c next visit. Endorsing some numbness/tingling of extremities which may be related to her diabetes but also may be related to her spinal stenosis. Will need foot exam next visit. Assessment & Plan (09/30/2023 1:05 PM EDT): Recently x2 weeks ago started on metformin for diabetes mgmt, admits took for 2 days but then stopped d/t nausea. Admits nausea intermittently continues and will take prescribed antinausea medication for this. Plan: Reviewed metformin best taken with food however patient does not wish to continue. Per review team waiting for confirmation on fhx in order to start new medication for diabetes mgmt - has appointment in person on 10/07. Can consider repeat A1c at this visit given new urinary frequency. HEMOGLOBIN A1C (%) Date Value 07/23/2023 8.4 (H) POC HEMOGLOBIN A1C (%) Date Value 08/23/2022 6.9 (H) Assessment & Plan (09/04/2023 3:54 PM EDT): Still waiting on clarification re: FH of thyroid cancer. Patient would benefit from an RX like Mounjaro or ozempic if no C/I. Was trialed on Victoza in the past, but this caused severe nausea and was before she was aware of possible thyroid cancer hx. Current BMI 42.43. Last A1c 8.4. Agrees to start metformin 500 mg while waiting clarification from family. SE reviewed. Return precautions discussed with patient. Patient verbalizes understanding and is in agreement with plan. Assessment & Plan (08/08/2023 11:49 AM EDT): Hx of DMT2. Last A1c increased to 8.4 from 6.4. Current BMI 42.43. She still needs to clarify FH of thyroid cancer. If no hx of medullary thyroid cancer, could consider Mounjaro given patient desire for weight loss and need to minimize GI side effects given chronic nausea/GI concerns. Return precautions discussed with patient. Patient verbalizes understanding and is in agreement with plan. Assessment & Plan (07/31/2023 6:19 PM EST): Hx of DMT2. Last A1c increased to 8.4 from 6.4. Current BMI 42.43. She previously was using victoza for weight mgmt and glycemic control, but stopped this some time ago given unclear FH re: thyroid cancer. She is not on any medications at this time. Discussed need for medication at given worsening glycemic control. She desires a medication that will also help with weight loss and won't exacerbate GI sxs. Consider Mounjaro? Agrees to TV in 1 week to review med options. Return precautions discussed with patient. Patient verbalizes understanding and is in agreement with plan. Assessment & Plan (07/23/2023 5:27 PM EST): Hx of well controlled DMT2. Last A1c 6.4. Was using Victoza for weight mgmt (discontinued given unclear FH of thyroid cancer and severe nausea). Not on any pharmcotherapy at this time. Agrees to repeat A1c today. May require trial of another agent pending A1c results. Return precautions discussed with patient. Patient verbalizes understanding and is in agreement with plan. Assessment & Plan (07/10/2023 11:01 AM EST): Well controlled DMT2. Last A1c 6.4. . Agrees to re-check today. Was using Victoza for weight mgmt. Needs to clarify FH of thyroid cancer before continuing. She restarted this RN on her own on Friday (0.6 mg) and developed severe nausea Friday. Sxs resolved shortly after discontinuing this medication. Should consider alternative for weight/glycemic control. Plan for in person visit next week with investment underwriter. Return precautions discussed with patient. Patient verbalizes understanding and is in agreement with plan. Assessment & Plan (01/22/2023 2:51 PM EDT): Well controlled DMT2. Last A1c 6.9. Agrees to re-check today. Was using Victoza for weight mgmt. Needs to clarify FH of thyroid cancer before continuing. Microalbumin obtained today. Return precautions discussed with patient. Patient verbalizes understanding and is in agreement with plan. Assessment & Plan (04/09/2022 12:45 PM EST): 61 year old female with DMT2 and increased BMI. Is working with nutrition, next visit 04/10. Interested in trial of Saxenda/Victoza for weight mgmt primarily. Will outreach to pharmacy to verify insurance coverage. SE reviewed including nausea (patient needs to connect with GI re: chronic nausea). Will need nursing visit for instruction on daily injections. Return precautions discussed with patient. Patient verbalizes understanding and is in agreement with plan. Assessment & Plan (03/08/2022 11:13 AM EDT): Overdue for eye exam. Ophthalmology visit is scheduled for 06/24/22. Will be due for next A1c 03/16. Can schedule lab visit/televisit around then. Other chronic pain 07/19/2021 Overview (07/19/2021): 06/2021 Ortho PT: Couple years ago, no relief Pain Meds: Dilantin, diclofenac pills, gabapentin 800 mg 3 times daily, methadone 53 mg liquid. Psychiatric: Anxiety, PTSD Past Pain injections: No Assessment & Plan (01/28/2024 5:17 PM EDT): Hx of chronic pain (mostly related to low back pain w/ sciatica). Follows with ortho. Reports there are days she needs more than the gabapentin 800 mg TID. Agrees to trial of 900 mg TID. Encouraged follow up with ortho/physiatry team. Return precautions discussed with patient. Patient verbalizes understanding and is in agreement with plan. Nausea 05/24/2021 Overview (09/20/2024): Summary: -ongoing since 2020, initially s/p cholecystectomy -has been working with GI -uses phenegran and protonix 09/20/202409/2021 -awaiting GI eval 08/2020 Initially s/p cholecystectomy 08/2020 Then recurred after COVID dx summer 2020 Better with compazine Assessment & Plan (09/20/2024 8:23 AM EDT): Ongoing since 2020. Was briefly connected to GI. Episodes occurring daily. A/w dry heaving and occasional vomiting. Work up has included CMP, CBC and lipase in the past. She is using promethazine and protonix with some relief. She is losing weight (8%)--she attributes this to decreased appetite from nausea. She is scheduled for EGD/colonoscopy in September and was prescribed zofran to assist with the prep for this. She wondering if pretreatment with a BZD could be possible. Rn Transitional Care will outreach to GI team. Return precautions discussed with patient. Patient verbalizes understanding and is in agreement with plan. Assessment & Plan (01/28/2024 5:06 PM EDT): Ongoing for >1 year. Was briefly connected to GI. Episodes occurring daily. A/w dry heaving and occasional vomiting. Work up has included CMP, CBC and lipase in the past. Agrees to repeat CMP/lipase. She is using promethazine with good relief. floorworker lasting wondering about possible peptic ulcer. I do not see a EGD on file. She is already on pantoprazole therapy however. Low threshold for EGD in future given duration of sxs.Has appt with GI scheduled for late . Return precautions discussed with patient. Patient verbalizes understanding and is in agreement with plan. Assessment & Plan (07/23/2023 5:29 PM EST): Ongoing for >1 year. Was briefly connected to GI. Episodes occurring a few times a week--uses promethazine with good relief. Does have hx of of hiatal hernia on CT in 2015 which may be contributing. floorworker lasting wondering about possible peptic ulcer. I do not see a EGD on file. She is already on pantoprazole therapy however. Low threshold for EGD in future given duration of sxs. She was suppose to have repeat CT, able to call today and book for next week..Has appt with GI scheduled for August. Return precautions discussed with patient. Patient verbalizes understanding and is in agreement with plan. Assessment & Plan (07/10/2023 10:59 AM EST): Ongoing for >1 year. Was briefly connected to GI. Endorsing severe vomiting Friday. No unusual food triggers. She did re-start the victoza 0.6 mg on her own from old supply Friday evening which may be contributing. She stopped the victoza Friday and . Friday sxs were improved. No episodes today. Given timing of sxs, likely related to Victoza, however does have hx of of hiatal hernia on CT in 2015 which may be contributing. She was suppose to have repeat CT, but order . Was also re-referred to GI in December, but never connected. Plan for OV with investment underwriter next week for chronic disease management. Assessment & Plan (01/22/2023 2:53 PM EDT): Ongoing for >1 year. Was briefly connected to GI. Will vomit 1-2x /week. Symptoms controlled with phenegran. Hx of hiatal hernia on CT in 2016 which may be contributing. Given persistent sxs, will re-refer to GI. Return precautions discussed with patient. Patient verbalizes understanding and is in agreement with plan. Assessment & Plan (04/09/2022 12:49 PM EST): Symptoms are no longer daily Still awaiting GI eval Had appt scheduled (02/12) but was unable to attend due to nausea Uses phenegran 12.5 mg PRN with good relief Will outreach to GI to assist in rescheduling. Assessment & Plan (03/08/2022 11:14 AM EDT): Symptoms are no longer daily Still awaiting GI eval Had appt scheduled (02/12) but was unable to attend due to nausea Uses phenegran 12.5 mg PRN with good relief Will outreach to GI to assist in rescheduling. Assessment & Plan (12/13/2021 2:07 PM EDT): Still awaiting GI evaluation. Appt 11/06 (cancelled by provider) Appt 11/20 (canlled by patient) Rescheduled for 01/22 Assessment & Plan (05/24/2021 12:41 PM EST): Discussed ok to continue for now but need GI f/u given chronicity of sx- phone number given and referral placed Refill x1 Elevated LFTs 02/26/2021 Assessment & Plan (07/23/2023 5:29 PM EST): Hx of elevated LFTs. Suspect fatty liver. Agrees to re-check levels today. Bilateral leg edema 01/26/2021 Overview (01/26/2021): Noted during OV 01/26/21 Obtaining lab work and echocardiogram Assessment & Plan (01/26/2021 3:18 PM EDT): 1 week of pitting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 [place] [address] Jillian Wong RN Back Pain; Fever; UTI 04/06/2025 Brief Note [facility] Adult [facility]iat[facility] [address] [facility] 2nd Floor - [address] [place] [address] Teresa Robles 03/31/2025 [facility] [address] [facility] 2nd Floor - [address] [place] [address] Teresa Robles 03/30/2025 Tel Enc [facility] Adult [facility]iat[facility] [address] 2[address] Floor - [address] [place] [address] Klaus Christianson MD 03/29/2025 [facility] [address] [facility] 2nd Floor - [address] [place] [address] Teresa Robles 03/28/2025 [facility] [address] [facility] 2nd Floor - [address] [place] [address] Teresa Robles 03/28/2025 Brief Note [facility] [address] 2nd Floor - [address] [place] [address] Teresa Robles 03/24/2025 2:40 PM EDT Televisit [facility] [address] [place] [address] Maddie Garcia PA-C Major depressive disorder, recurrent episode, moderate (HCC) (Primary Dx); Patient on methadone maintenance therapy 03/24/2025 [facility] [address] [facility] [address] - [address] [place] [address] Teresa Robles 03/23/2025 Nurse Triage [facility] [address] [place] [address] Zoraida Sepulveda RN Depression 03/23/2025 Telephone [facility] Primary Care - [facility] - Pharmacotherapy [address] [place] [address] Martita Mueller, PharmD Outreach-missed Appointment 03/08/2025 Telephone [facility] [address] [place] [phone] Aura Sanchez MA OUTREACH-1ST ATTEMPT (*03/08/25-Unable to LVM , Needs EGD. AFFIRMATIVE ACTION OFFICER) 03/07/2025 2:30 PM EDT Televisit [facility] Adult [facility]iatry [address] [place] [address] 2nd Floor - [address] [place] [address] Klaus Christianson MD Major depressive disorder, recurrent episode, moderate (HCC) (Primary Dx); Hx of cocaine abuse (HCC); Opioid dependence on agonist therapy (HCC); Nicotine dependence due to vaping non-tobacco product; Generalized anxiety disorder with panic attacks; Posttraumatic stress disorder 03/07/2025 Brief Documentation Enc [facility] [address] [place] [address] Suzanne Ramírez RN GI-Procedure Screening; Letter 03/04/2025 1:21 PM EDT Anesthesia Event [facility] Operating Room [address] [place] [phone] Ger Oneill MD 03/04/2025 1:10 PM EDT - 03/04/2025 1:40 PM EDT Surgery [facility] - Operating Room [address] [place] [phone] Sacha Vicente Jr., MD EGD (ESOPHAGOGASTRODUODENO SCOPY) 03/04/2025 11:38 AM EDT - 03/04/2025 3:07 PM EDT Hospital Encounter [facility] Operating Room [address] [place] [phone] Sacha Vicente Jr., MD Discharge Disposition: Home 03/04/2025 Travel 03/03/[address] [phone] Piedad Soliz, MARIELA Confirming Appointment 03/02/2025 11:30 AM EDT Televisit [facility] Adult [facility]ry [address] [place] [address] Inder Real, PsTanisha Generalized anxiety disorder with panic attacks (Primary Dx); Hx of cocaine abuse (HCC); Major depressive disorder, recurrent episode, moderate (HCC); Patient on methadone maintenance therapy; Nicotine dependence due to vaping non-tobacco product; Posttraumatic stress disorder; Attention deficit hyperactivity disorder (ADHD), unspecified ADHD type; Bereavement 02/23/[address] [phone] Stacie Woo RN Confirming Appointment 02/14/2025 11:00 AM EDT Televisit [facility] [address] [place] [address] Inder Real, PsyD Major depressive disorder, recurrent episode, moderate (HCC) (Primary Dx); Hx of cocaine abuse (HCC); Patient on methadone maintenance therapy (HCC); Nicotine dependence due to vaping non-tobacco product; Generalized anxiety disorder with panic attacks; Posttraumatic stress disorder; Attention deficit hyperactivity disorder (ADHD), unspecified ADHD type; Bereavement 01/26/2025 Tel Enc [facility] Adult [facility]iatry [address] [place] [address] Klaus Christianson MD 01/14/[address] [address] Remedios Cantu PA-C General (Scheduled for EGD today (01/14) but sick w/ COPD) 01/14/[address] [address] LidaEbenezer zavala Gastroenterology 01/12/2025 10:20 AM EDT Televisit [facility] [address] [place] [address] Sapphire Jacobsen NP Acute cough (Primary Dx) 01/11/2025 Nurse Triage [facility] NURSE [facility] [address] [place] [address] Kanika Patton RN Follow Up; Cough from Last 3 Months Immunizations Immunization Administration Dates Next Due Covid-19 Vaccine (Moderna - Full Dose) Covid-19 Vaccine (Pfizer - Montejo Cap) 03/05/2022 Hepatitis A Adult 2 dose 03/19/2019 INFLUENZA VIRUS VAC QUAD GISELLE E INTRANASAL 2-<50YRS 03/10/2015 Influenza Virus Quad Presv F ree Vacc 6 Mo and Older, IM 03/05/2022,03/19/2019,03/14/2017 Influenza Virus Quad W/Presv Vacc 6 Mo and Older, IM 03/10/2015 PNEUMOCOCCAL POLYSACCHARIDE VACCINE v23 03/19/20 19 Pneumococcal 20-(prevnar 20) 01/22/2023 Tdap 03/10/2015,08/02/2008 Zoster Vacc (HZV) Recomb Adj v, IM, 2 Dose, (SHINGRIX) 07/23/2023,01/22/2023 Family History Medical History Relation Comments Alcohol/Drug Abuse Brother 1 alcohol use d isorder OTHER Brother 1 septic tooth inf ection High Cholesterol Brother 3 Hypertension Brother 3 Alcohol/Drug Abuse Father alcohol use d isorder Psychiatric Illness Father VASCULAR Father brain aneurysm, sudden Diabetes Maternal Grandfather Diabetes Maternal Grandmother Heart Disease Maternal Uncle 1 age 32 Diabetes Maternal Uncle 2 Hypertension Mother Neurological Mother vertigo Psychiatric Illness Mother Cancer - Breast Other mid 60s Cancer - Cervical Other Cancer - Ovarian Other Stroke Paternal Uncle age 54 Thyroid Paternal Uncle Psychiatric Illness Sister 1 Asthma FamHxNeg Relation Status Comments Brother 1 Brother 2 Alive Brother 3 Alive Brother 4 Alive Father Maternal Grandfather Maternal Grandmother Maternal Uncle 1 Maternal Uncle 2 Mother Alive Other Paternal Grandfather Paternal Grandmother Paternal Uncle Sister 1 Alive Sister 2 Alive Son 1 Alive Son 2 Alive Son 3 Alive Son 4 Alive Social History Tobacco Use Types Packs/Day Years Used Date Smoking Tobacco: Former Cigarettes 0.5 5 0 07/06/2015 - 07/06/2020 Smokeless Tobacco: Never Tobacco Cessation:Counseling Given: No Alcohol Use Standard Drinks/Week Comments No 0 (1 standard drink = 0.6 oz pure alcohol) former etoh use, not now on medications, last drink ~4-6 months ago Comments No Sex and Gender Information Value Date Recorded Sex Assigned at Not on file Legal Sex Female 5:33 PM EDT Gender Identity Female 06/19/2023 6:50 AM EST Sexual Orientation Straight 07/30/2023 10 :54 AM EST Last Filed Vital Signs Vital Sign Reading Time Taken Comments Blood Pressure 96/56 03/04/2025 1:55 PM EDT Pulse 83 03/04/2025 1:55 PM EDT Temperature 36.3 C (97.3 F) 03/04/2025 1:40 PM EDT Respiratory Rate 19 03/04/2025 1:55 PM EDT Oxygen Saturation 90% 03/04/2025 1:55 PM EDT Inhaled Oxygen Concentration - - Weight 109.8 kg (242 lb) 03/04/2025 12:16 PM EDT Height 165.1 cm (5' 5 ) 03/04/2025 12:16 PM EDT Body Mass Index 40.27 03/04/2025 12:16 PM EDT Plan of Treatment Upcoming Encounters Date Type Department Care Team (Latest Contact Info) Description 05/06/2025 12:40 PM EST Hospital Encounter [facility] Operating Room [address] [place] [phone] Sacha Vicente Jr., MD [address] [place] [address] 05/06/2025 12:40 PM EST - 05/06/2025 1:10 PM EST Surgery [facility] Operating Room [address] [place] [phone] Sacha Vicente Jr., MD [address] [place] [phone] EGD (ESOPHAGOGASTRODUOD ENOSCOPY) Scheduled Procedures Name Priority Associated Diagnoses Date/Ti me EGD (ESOPHAGOGASTRODUODENOS COPY) Nausea and vomiting, unspecified vomiting type Abdominal pain, epigastric 05/06/2025 12:40 PM EST Health Maintenance Due Date Last Done Comments COLON CA SCREENING FLEX SIG EVERY 5 YRS 1980 DM COMPLETE FOOT EXAM 1980 DM EYE EXAM 1980 FECAL OCCULT BLOOD AGE 45-75 2007 FIT- DNA (Cologuard) 2007 RSV OR 60+ (1 - Risk 50-74 years 1-dose series) 2012 COLONOSCOPY 11/08/2013 11/08/2008 (Comp leted outside [facility]) Colorectal Cancer Screening 11/08/2013 PAP SMEAR 01/27/2024 01/26/2021, 04/11/2015 HEALTH CARE PROXY 03/19/2024 03/19/2019 (Co mpleted at [facility]), 01/26/2014 (Completed at [facility]) ABN CHEST CT 12 MON FOLLOW UP 07/29/2024 07/30/2023 (Completed at [facility]) AWQ Questionnaire 08/05/2024 08/06/2023, , 09/03/2018 (Completed at [facility]), Additional history exists A1C 12/15/2024 09/15/2024, 09/0 08/2023, 07/23/2023, Additional history exists COVID-19 Vaccine ( - season) 2025 03/05/2022, 12/18/2020 INFLUENZA VACCINE (#1) 2025 , 03/19/2019, 03/14/2017, Additional history exists LIPID SCREENING 01/27/2025 01/28/2024, 12/26, 11/06/2017, Additional history exists TETANUS VACCINE (3 - Td or Tdap) 03/10/2025 03/10/2015, 08/02/2008 MAMMOGRAPHY 03/18/2025 03/18/2023, 01/24, 03/15/2016, Additional history exists MICROALBUMIN 09/15/2025 09/15/2024, 06/27, 01/22/2023, Additional history exists BMP 10/15/2025 10/15/2024, 04/07/2024, 02/12/2024, Additional history exists Cervical Cancer Screening 01/26/2026 HPV SCREENING 01/26/2026 01/26/2021, 04/11/2015 HIV SCREENING Completed 03/10/2015, 11/23 (Discussed/Declined (reset due date to next due date per frequency)) HEPATITIS A VACCINE (ADULT) Aged Out 03/19/2019 No longer eligible based on patient's age to complete this topic PHYSICAL EXAM Completed 01/22/2023, 04/11/2015 PNEUMOCOCCAL VACCINE SERIES 50+ Completed 01/22/2023, 03/19/2019 PNEUMOCOCCAL VACCINE SERIES Completed 01/22/2023, ZOSTER VACCINE Completed 07/23/2023, 01/22/2023 HEP C SCREEN Completed 09/15/2024, 10/24, 03/10/2015 HPV VACCINE SERIES Aged Out No longer eligible based on patient's age to complete this topic MENINGOCOCCAL (MCV4) VACCINE SERIES Aged Out No longer eligible based on patient's age to complete this topic MENINGOCOCCAL B VACCINE SERIES Aged Out No longer eligible based on patient's age to complete this topic Goals Goal Patient Goal Type Associated Problems Recent Progress Patient-Stated? Author Quit smoking / using tobacco Lifestyle (Healthcare Team Goals) No Opal Orozco [facility] Outreach Care Plan [facility] PATIENT RESOURCE COORDINATION No Blayne San Autogenerated Goal Care Plan Autogenerated Problem No Vaughn, Ruma Procedures Procedure Name Priority Date/Time Associated Diagnosis Comments EGD (ESOPHAGOGASTRODUODE NOSCOPY) 03/04/2025 1:20 PM EDT Chronic nausea HC BASIC METABOLIC PANEL Routine 10/15/2024 10:37 AM EDT Hyperkalemia MICROALBUMIN RANDOM URINE Routine 09/15/2024 6:08 PM EDT MARCELINA (acute kidney injury) (HCC) HEPATITIS C PCR QUAL TO QUANT Routine 09/15/2024 3:58 PM EDT Fatty liver Abnormal results of liver function studies HC HEMOGLOBIN A1C (POC) Routine 09/15/2024 3:28 PM EDT Type 2 diabetes mellitus with morbid obesity (HCC) LOW DENSITY LIPOPROTEIN DIRECT Routine 01/28/2024 2:31 PM EDT Other hyperlipidemia MA SCREENING MAMMO BILATERAL DIGITAL WITH DBT & CAD Routine 03/18/2023 3:09 PM EDT Encounter for screening mammogram for malignant neoplasm of breast HC HPV Routine 01/26/2021 3:09 PM EDT Screening for cervical cancer CYTOPATH, C/V, THIN LAYER Routine 01/26/2021 12:00 AM EDT Screening for cervical cancer HIV ANTIGEN ANTIBODY Routine 03/10/2015 3:40 PM EDT Substance dependence, in remission (HCC) from Last 3 Months or Most Recently Relevant to Health Maintenance Results * (ABNORMAL) BASIC METABOLIC PANEL (10/15/2024 10:37 AM EDT) SODIUM 139 136 - 145 mmol/L [facility] POTASSIUM 4.6 3.5 - 5.1 mmol/L [facility] CHLORIDE 99 98 - 107 mmol/L [facility] CARBON DIOXIDE 29 21 - 32 mmol/L [facility] ANION GAP 11 10 - 22 mmol/L [facility] CALCIUM 9.6 8.5 - 10.5 mg/dL [facility] Glucose Random 252(H) 74 - 160 mg/dL [facility] BUN (UREA NITROGEN) 21(H) 7 - 18 mg/dL [facility] CREATININE 1.7(H) 0.4 - 1.2 mg/dL [facility] ESTIMATED GLOMERULAR FILT RATE 34(L) >60 ML/MIN [facility] Comment: On February 15, 2021 the NKF-ASN Task Force recommended the adoption of the new eGFR 2020 CKD EPI creatinine equation that estimates kidney function without a race variable. NKF and ASN recommend diagnosing kidney disease using a blood test for creatinine to estimate GFR and a urine test for albumin to calculate albumin to creatinine ratio (uACR). For more information please see https://www.kidney.org/news/tam-irv-bbv-fpzgnzm-ivl-kjw-to-d cthehwb-bwclnz-jpbowbcu. 10/15/2024 10:3 7 AM EDT 10/15/2024 5:15 PM EDT us Kelsey Viera MD LABORATORY Final Re sult Performing Organization Address City/[facility]/ZIP Co de Phone Number [facility] [address] [address], [place] * (ABNORMAL) MICROALBUMIN RANDOM URINE (09/15/2024 6:08 PM EDT) CREATININE RANDOM URINE 66 28 - 217 mg/dL [facility] ALBUMIN URINE RANDOM 3.0(H) 0.0 - 1.9 mg/dL [facility] ALB/CREAT RATIO URINE RAN 45(H) 0 - 30 ug/mg [facility] Comment: Interpretive Information for Microalbumin Normal : < 30 ug Microalbumin / mg Creatinine Microalbuminuria: 30-300 ug Microalbumin / mg Creatinine Clinical Albuminuria: >300 ug Microalbumin / mg Creatinine Urine URINE SPECIMEN / Unknown 09/15/2024 6:08 PM EDT 09/15/2024 10:04 PM EDT Narrative [facility] - 09/15/2024 10:55 PM EDT URINE&Urine us Kelsey Viera MD URINE ORDERABLES Final R esult Performing Organization Address [facility]/ZIP Co de Phone Number [facility] [place] [id number], [place] * HEPATITIS C PCR QUAL TO QUANT (09/15/2024 3:58 PM EDT) HEPATITIS C ANTIBODY NON-REACT MARLA NONREACTIVE [facility] 09/15/2024 3:58 PM EDT 09/15/2024 8:52 PM EDT us Vinod Odell MD LABORATORY Final Result Performing Organization Address City/[facility]/ZIP Co de Phone Number [facility] [address] [address], [place] * (ABNORMAL) POC A1C (09/15/2024 3:28 PM EDT) POC HEMOGLOBIN A1C 13.2(HH) 4 - 5.6 % [facility] Comment: Hemoglobin A1C Interpretive information < 7.0 % ADA* Target > 8.0 % Above ADA Target-Action suggested *ADA: [employer] 09/15/2024 3:28 PM EDT 09/15/2024 3:35 PM EDT Martita Mueller PharmD LABORATORY Final Res ult Performing Organization Address [facility] Co de Phone Number [facility] CARE TESTING [address] [place] [address], [place] * LOW DENSITY LIPOPROTEIN DIRECT (01/28/2024 2:31 PM EDT) LOW DENSITY LIPOPROTEIN DIRECT 75 0 - 189 mg/dL [facility] 01/28/2024 2:31 PM EDT 01/28/2024 5:51 PM EDT Narrative [facility] - 01/28/2024 7:59 PM EDT Tests added: LIP by KALIN,ALESSANDRO on 01/28/24 at 1926 by GK1. Maddie Garcia PA-C LABORATORY Final Result Performing Organization Address [facility] Co de Phone Number [facility] [address] [place] [address], [place] * [place] Screening Mammo Bilateral Digital with DBT & CAD (03/18/2023 3:09 PM EDT) Anatomical Region Laterality Modality Chest Bilateral Mammography 03/19/2023 8:10 AM EDT Impressions 03/19/2023 8:39 AM EDT 1. No mammographic evidence of malignancy. 2. The Tyrer-Cuzick risk assessment is less than 20% (normal risk). A letter has been sent to the patient in layman's terms describing the findings and recommendations from this examination. BI-RADS 2 - Benign RECOMMENDATION: Routine Screening Mammogram [facility] breast imaging department is credentialed by and follows the guidelines of the [employer] which recommends annual screening mammography in all women ages 40 and older. Reviewed and Electronically Signed By: Royer Lozoya MD Signed Date and Time: 03/19/2023 8:39 AM Narrative 03/19/2023 8:39 AM EDT EXAMINATION: Digital screening mammogram with iCAD computer aided detection version 7.2 CLINICAL INDICATION: Screening. She is status post bilateral reduction mammoplasty. Family history of breast cancer: Maternal great grandmother. TECHNIQUE: Bilateral CC and MLO views Bilateral CC and MLO tomosynthesis COMPARISON: Mammograms dating back to 03/15/2016 FINDINGS: The breast tissues are almost entirely fatty. There are stable postsurgical changes status post bilateral reduction mammoplasty. There are multiple bilateral rounded focal asymmetries. Their multiplicity and bilaterality indicate that they are benign. There are no suspicious calcifications, dominant masses, or unexpected architectural distortion in either breast. Procedure Note Royer Lozoya MD - 03/19/2023 EXAMINATION: Digital screening mammogram with iCAD computer aided detection version7.2 CLINICAL INDICATION: Screening. She is status post bilateral reduction mammoplasty. Family history of breast cancer: Maternal great grandmother. TECHNIQUE: Bilateral CC and MLO views Bilateral CC and MLO tomosynthesis COMPARISON: Mammograms dating back to 03/15/2016 FINDINGS: The breast tissues are almost entirely fatty. There are stablepostsurgical changes status post bilateral reduction mammoplasty. Thereare multiple bilateral rounded focal asymmetries. Their multiplicity andbilaterality indicate that they are benign. There are no suspiciouscalcifications, dominant masses, or unexpected architectural distortion ineither breast. IMPRESSION: 1. No mammographic evidence of malignancy. 2. The Tyrer-Cuzick risk assessment is less than 20% (normal risk). A letter has been sent to the patient in layman's terms describing thefindings and recommendations from this examination. BI-RADS 2 - Benign RECOMMENDATION: Routine Screening Mammogram [facility] breast imaging department is credentialed byand follows the guidelines of the [place] [employer] whichrecommends annual screening mammography in all women ages 40 and older. Reviewed and Electronically Signed By: Royer Lozoya MD Signed Date and Time: 03/19/2023 8:39 AM Maddie Garcia PA-C RAD BREAST IMAGING ORDERABLES Final Result * HUMAN PAPILLOMAVIRUS (HPV) (01/26/2021 3:09 PM EDT) HUMAN PAPILLOMAVIRUS Negative for HPV High Risk mRNA (HPV types: 16,18,31,33, 35,39,45,51, 52,56,58,59, 66,68) [facility] THINPREP CYTOLOGY TECHNIQUE / Unknown 01/26/2021 3:09 PM EDT 01/26/2021 10:36 PM EDT us Alfonso Bishop MD MICROBIOLOGY Final Resul t [facility] [place] [address], * CYTOPATH, C/V, THIN LAYER (01/26/2021 12:00 AM EDT) PATHOLOGY REPORT SPEC #: [id number] RECD: 01/26/21 STATUS: SOUAnneliese SP 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 INFLAMMATORY CELLULAR CHANGES. SATISFACTORY FOR EVALUATION, TRANSFORMATION ZONE COMPONENT IS PRESENT. The Pap smear is a screening test in which both false positive and false negative results can occur. Thus, it should not be the sole means to diagnosis or exclude malignancy or a premalignant condition. Diagnosis by: MERRILL PORRAS Cytology patient information Cancer screening? Y ThinPrep PAP with reflex HRHPV test if ASC-US/ASCH/AGC? Y High risk HPV test? Y Give reason: Number of slides? 1 First day LMP? NO LMP RECORDED Regular cycle? Hormone Rx?, What? Hysterectomy? Y Current MARINE ENGINE DRIVER exam? WNL Reason for PAP: SCREENING Patient insurance: Screened by: [employer] screener name: Merrill Mccain CT(ASCP) Path procedures [id number] THIN PREP PAP ([id number]) Signed (signatu re on file) MERRILL MCCAIN VERN 02/05/21 -- Endocervix/Exocer vix 01/26/2021 01/26/2021 8:41 PM EDT us Alfonso Bishop MD PATHOLOGY Final Resul t * HIV ANTIGEN ANTIBODY (03/10/2015 3:40 PM EDT) HIV 1/2 PLUS O AG/AB SCREEN NON-REACT NONREACTIVE [facility] Comment: This sample is negative for HIV-1 Antibody (Groups M and O), HIV-2 Antibody and HIV-1 p24 Antigen. HIV MULTISPOT NOT INDICATED NONREACTIVE [facility] HIV RESULT INTERPRETATION NON-REACTIVE [facility] Comment: This sample is negative for HIV-1 Antibody (Groups M and O), HIV-2 Antibody and HIV-1 p24 Antigen. 03/10/2015 3:40 PM EDT 03/10/2015 7:07 PM EDT Narrative [facility] - 03/13/2015 2:11 PM EDT PRIOR TO ORDERING, was verbal consent obtained? (Verbal consent by the patient or designee is REQUIR ED to order this test.)->YES us Lg Bailey MD LABORATORY Final R esult [facility] [address] [place] [address], [place] from Last 3 Months or Most Recently Relevant to Health Maintenance Additional Health Concerns Active Problems Noted Date Diagnosed Date [facility] PATIENT RESOURCE COORDINATION 04/10/2022 Autogenerated Problem 03/10/2025 Insurance [facility] GARCIA [facility] Advance Directives * Full Code (Latest Code Status on File) Date Activated Date Inactivated Comments 07/20/2020 4:50 PM * Full Code Date Activated Date Inactivated Comments 01/26/2014 2:14 PM 07/20/2020 4:50 PM Question Answer Comments Proxy Name: Zulma Mahan Proxy Relationship: mother Proxy Care Teams Furniture Mover Driver Relationship Specialty Start Date End Date Lg Bailey MD [address] [place] [id number] PCP - General Internal Medicine 12/10/13 Lg Bailey MD [address] [place] [id number] PCP - Insurance PCP 02/14/16 Klaus Christianson MD [address] [place] [id number] Physician Psychiatry - General 03/03/25 Inder Real PsyD [address] [place] [phone] Psych Fellow Psychology 03/03/25
--- OUTSIDE RECORDS SUMMARY | 2025-04-13 13:33 | XMS_ITS | Encounter Summary ---
Author Organization [facility] Address [address] [place] [address] Care Team Providers Care Office Copy Selector Name Role Phone Octavio Lopez MD Primary Care Provider Octavio Lopez MD Unavailable [phone] Klaus Christianson MD Unavailable [phone] Inder RealyD Unavailable [phone] Encounter Details Date Type Department Care Team (Late st Contact Info) Description 04/11/2025 Tel Enc [facility] Adult Psychiatry [address] [place] [address] 2[address] Floor - [address] [place] [address] Klaus Christianson MD [address] [place] [address] [id number] Social History Tobacco Use Types Packs/Day Years [...] Osmar Quick RN documented in this encounter Miscellaneous Notes * Telephone Encounter - Klaus Christianson MD - 04/11/2025 1:49 PM EST Pt called front clerk, TW returned call-- Reports depression has been worsening, consistent with prior years at this time with annivers and winter. Family increasingly worried, brought [facility]. [facility] still [facility], waiting for [facility]. Prov[facility] for [facility]. documented in this encounter Plan of Treatment Upcoming Encounters Date Type Department Care Team (Latest Contact Info) Description 05/06/2025 12:40 PM EST Hospital Encounter [facility] - Operating Room [address] [place] [address] Sacha Vicente Jr., MD [address] [place] [address] 05/06/2025 12:40 PM EST - 05/06/2025 1:10 PM EST Surgery [facility] - Operating Room [address] [place] [address] Sacha Vicente Jr., MD [address] [place] [address] EGD (ESOPHAGOGASTRODUOD ENOSCOPY) Scheduled Procedures Name Priority Associated Diagnoses Date/Ti me EGD (ESOPHAGOGASTRODUODENOS COPY) Nausea and vomiting, unspecified vomiting type Abdominal pain, epigastric 05/06/2025 12:40 PM EST documented as of this encounter Goals Goal Patient Goal Type Associated Problems Recent Progress Patient-Stated? Author Quit smoking / using tobacco Lifestyle (Healthcare Team Goals) No Opal Orozco [facility] Outreach Care Plan [facility] PATIENT RESOURCE COORDINATION No Blayne San Autogenerated Goal Care Plan Autogenerated Problem No Vaughn, Ruma documented as of this encounter Visit Diagnoses Not on filedocumented in this encounter Additional Health Concerns Active Problems Noted Date Diagnosed Date [facility] PATIENT RESOURCE COORDINATION 04/10/2022 Autogenerated Problem 03/10/2025 documented as of this encounter Care Teams Office Copy Selector Relationship Specialty Start Date End Date Octavio Lopez MD [address] [place] [id number] PCP - General Internal Medicine 12/10/13 Octavio Lopez MD [address] [place] [phone] PCP - Insurance PCP 02/14/16 Klaus Christianson MD [address] [place] [id number] Physician Psychiatry - General 03/03/25 Inder Real, PsTanisha [address] [place] [id number] Psych Fellow Psychology 03/03/25 documented as of this encounter
--- OUTSIDE RECORDS SUMMARY | 2025-04-13 13:33 | XMS_ITS | Data Portability ---
Author Organization [employer] [facility], [facility] Address [address] [place] [address] Care Team Providers Care Weight Reducing Technician Name Role Phone HIM CCA OTHER LG BAILEY Primary Care Provider Assessment Encounter Date Assessment Date Assessment LastModified by Organization Details LastModified Time 04/19/2024 04/19/2024 As noted, we katie miranda called to see this patient regarding concerns of coughEvaluation in the field was performed by my edge banding machine offbearer colleague, as noted above, I provided real-time direction and supervision for this visit. 63 f hx of htn reports cough x 3 weeks, productive of green sputum, +LLL crackles on medic exam no allergies to meds. could be post viral cap. Plan: doxy x 5 days requesting meds for nausea, short course zofran Primary care, consider cxr when able Disposition: We discussed the diagnostic uncertainty of home visits and the risk associated with this. In this case, the patient and I felt this to be an acceptable and reasonable amount of risk given the benefit of avoiding an ED visit. We discussed the need to seek care urgently/emergentl y in the setting of any new or worsening serious symptoms, particularly shortness of breath, fever, neck stiffness [email or web address] Not available 04/19/2024 16:10:18 04/07/2025 04/07/2025 Ms. Reyes is a 64 yo F with Hypertension, Hyperlipidemia, Gastroesophageal Reflux Disease (GERD), Substance Use Disorder who is calling today with urinary concerns. Per patient and medic, patient states that symptoms started Friday or Friday. Reports some mid to low back pain, and lower abdominal pressure. Patient endorses frequency and urgency, painful burning urination. Denies any vomiting/loose stool endorses nausea. States that her urine is a darker than usual, denies any odor or hematuria. Denies any kidney issues she is aware of and denies any blood thinners. Last UCx was from 01/2024: Greater than 100,000 CFU/mL of Enterococcus faecalis E.faecalis INT REGULO AMPICILLIN S <=2 NITROFURANTOIN S <=16 VANCOMYCIN S 1 Given the patient's presenting sx, her POC UA is actually negative for infection. Notable though for ketones and glucose, which would be new for her - and a new diabetes diagnosis. Denies recent steroid use. No current diabetes medications: not on metformin or monjaro, was briefly on for weight loss. I do think she will need an in person evaluation and further labs and possibly endocrine eval. Given the new diagnosis of diabetes, I do think that she would warrant further testing. She would also need diabetes medication treatment information and counseling on how to take her medications. Patient does decline though. Has capacity and competence to decline. Was willing to sign an AMA form. Understand that the risks include worsening, hyperglycemic, incidents, and episodes, and those related to that including altered mental status, possible, arrhythmia, and or . Understands that she can call us back at any time. I provided real -time medical direction via phone for this encounter, and was available for additional phone based assistance as needed. I have reviewed and agree with the Assessment and Plan as documented by the Critical Care Physician Assistant. We discussed the diagnostic uncertainty of home visits and the risk associated with this. In this case the patient and I felt this to be an acceptable and reasonable amount of risk given the benefit of avoiding an ED visit. The patient given the opportunity to ask questions. Follow up with primary care was recommended, as needed. Advised if develops CP/severe SOB/turning blue/uncontrolled n/v/d or black/bloody emesis or stool/ AMS/ syncope/ high fever unresponsive to APAP to call 911- verbalized understanding of instruction. [email or web address] Not available 04/08/2025 04:57:20 Plan of Treatment Reminders Order Date Submit Date Provider Last Modified By Organization Details Last Modified Time Details Appointments None recorded. Lab urinalysis, dipstick 2024 025 [facility], [address] [facility], [place], [phone] 07:48:06 rapid SARS CoV 2 Ag, QL IA, respiratory specimen [address] [facility], [address] [place] [address], [id number] 4 15:50:32 rapid flu (A+B) 2023 024 [email or web address] [facility], [address] [place] [address], [id number] 4 15:50:22 culture, urine 2023 [facility], [address], [facility], [place], [address], 4 12:47:27 [facility], dipstick [facility] [address] [place] [address], [id number] 15:44:57 Referral None recorded. Procedures None recorded. Surgeries None recorded. Imaging None recorded. Medication Orders doxycycline hyclate 100 mg capsule 2023 [id number], [address] [place] [address], [id number], 15:50:32 ondansetron 4 mg disintegrat ing tablet [email or web address] [facility]99024, [address] [place] [address], [id number], 15:50:22 Zofran 4 mg tablet 2023 024 [facility]32307, [address] [place] [address], [id number], 4 15:50:31 doxycycline hyclate 100 mg tablet [email or web address] [facility] #36240, [address] [place] [address], [id number], 4 15:50:22 senna 8.6 mg tablet 2023 024 [facility] #35521, [address] [place] [address], [id number], 4 15:29:50 clonidine HCl 0.1 mg tablet 2023 024 [facility] #06960, [address], [place], [id number], 4 15:29:51 Patient TargetsNo targets recorded. Patient InstructionsNo instructions recorded. Reason for Referral None Reported. Results Created Date Observation Date Name Description Value Unit Range Abnormal Flag Note LastModifiedBy Organization Detail LastModifiedTime 02/19/2002/25/2024 CULTU RE, URINE , ROUTI NE culture, urine, routine SEE NOTE abnormal CULTU RE, URINE , ROUTI NE Micro Numbe r: [id number] Test Statu s: Final Speci men Sourc e: Not given Speci men Quali ty: Adequ ate Resul t: Great er than 100,0 00 CFU/m L of Enter ococc us prema yanez ----- ----- ----- - INT REGULO AMPIC ILLIN S <=2 NITRO FURAN TOIN S <=16 VANCO MYCIN S 1 S = Susce ptibl e I = Inter media te R = Resis tant NS = Not susce ptibl e SDD = Susce ptibl e Dose Depen dent * = Not Teste d NR = Not Repor hallie NN = See Thera py Comme nts Not Available [facility] [place] [facility] [address] Nick Prasad, [place], [place], [address], 02/25/2024 10:58:41 04/07/20 25 04/10/2025 CULTU RE, URINE , ROUTI NE culture, urine, routine SEE NOTE CULTU RE, URINE , ROUTI NE Micro Numbe r: [id number] Test Statu s: Final Speci men Sourc e: Urine Speci men Quali ty: Adequ ate Resul t: Mixed genit al lucy isola hallie. These super ficia l bacte kim are not indic ative of a urina ry tract infec tion. No furth er organ ism ident ifica tion is warra nted on this speci men. If clini nina indic ated, recol lect clean -catc h, mid-s tream urine and trans delmer immed iatel y to Urine Cultu re Trans port Tube. Not Available [facility] [place] [facility] [address] Nick B, [place], [address], 04/10/2025 09:07:27 Result Notes None recorded. Medical Equipment None Reported. Allergies No known drug allergies Medications Name Sig Start Date Stop Date Status Note LastModified by Organization Details LastModified Time fluoxetine 40 mg capsule TAKE 1 CAPSULE BY MOUTH IN THE MORNING. active Not Available Not Available No t Available metformin 500 mg tablet Take 1 tablet by mouth daily with breakfast active Not Available Not Available No t Available atorvastatin 80 mg tablet Take 1 tablet by mouth in the morning. active Not Available Not Available No t Available clonidine HCl 0.1 mg tablet Take 1 tablet by mouth 2 (two) times daily as needed (NOTE must keep 05/[address] Christianson for future refills) active Not Available Not Available No t Available doxycycline hyclate 100 mg capsule Take 1 capsule twice a day by oral route for 5 days. active Not Available Not Available No t Available tizanidine 2 mg tablet Take 1 tablet by mouth every 4 hours active Not Available Not Available No t Available ibuprofen 800 mg tablet Take 1 tablet by mouth every 8 (eight) hours as needed for Pain active Not Available Not Available No t Available tizanidine 4 mg tablet Take 1 tablet by mouth every 8 (eight) hours as needed for SPASM active Not Available Not Available No t Available ampicillin 500 mg capsule TAKE 1 CAPSULE BY MOUTH EVERY 8 HOURS FOR 7 DAYS active Not Available Not Available No t Available senna 8.6 mg tablet Take 1 tablet by mouth in the morning and 1 tablet before bedtime. active Not Available Not Available No t Available promethazine 12.5 mg tablet TAKE 1 TABLET BY MOUTH EVERY 6 (SIX) HOURS NEEDED FOR NAUSEA active Not Available Not Available No t Available lisinopril 20 mg tablet Take 1 tablet by mouth daily active Not Available Not Available Not Available ondansetron HCl 4 mg tablet Take 2 tablets twice a day by oral route. active Not Available Not Available No t Available famotidine 40 mg tablet Take 1 tablet by mouth in the morning. active Not Available Not Available No t Available levothyroxin e 25 mcg tablet Take 1 tablet by mouth every morning before breakfast active Not Available Not Available No t Available gabapentin 800 mg tablet Take 1 tablet by mouth in the morning and 1 tablet at noon and 1 tablet before bedtime. active Not Available Not Available No t Available pantoprazole 40 mg tablet,delay ed release Take 1 tablet by mouth in the morning. active Not Available Not Available No t Available nystatin 100,000 unit/gram topical cream Apply topically 2 (two) times daily active Not Available Not Available No t Available promethazine 25 mg tablet Take 1 tablet by mouth every 8 (eight) hours as needed for Nausea active Not Available Not Available No t Available docusate sodium 100 mg capsule TAKE 1 CAPSULE BY MOUTH IN THE MORNING AND 1 CAPSULE BEFORE BEDTIME. active Not Available Not Available No t Available hydroxyzine HCl 25 mg tablet Take 1-2 tablets by mouth 2 (two) times daily as needed (sleep or anxiety) active Not Available Not Available No t Available mupirocin 2 % topical ointment APPLY TOPICALLY TO THE AFFECTED AREA THREE TIMES DAILY FOR 7 DAYS active Not Available Not Available N ot Available gabapentin 100 mg capsule Take 1 capsule by mouth in the morning and 1 capsule at noon and 1 capsule before bedtime. active Not Available Not Available No t Available ondansetron 4 mg disintegrati ng tablet Place 1 tablet by translingua l route. 2023 active Not Available Not Available Not Avai lable fluoxetine 20 mg capsule Take 1 capsule by mouth daily for 14 days, THEN 2 capsules daily. active Not Available Not Available No t Available fluticasone propionate 50 mcg/actuatio n nasal spray,suspen deep INSTILL 1 spray by Each Nostril route in the morning. active Not Available Not Available No t Available sertraline 50 mg tablet Take a HALF tablet (25mg) daily for four days, then take a WHOLE tablet (50mg) daily active Not Available Not Available No t Available doxycycline hyclate 100 mg tablet Take 1 tablet by oral route. 2023 active Not Available Not Available Not Avai lable Ventolin HFA 90 mcg/actuatio n aerosol inhaler Inhale 2 puffs into the lungs every 6 (six) hours as needed for Wheezing active Not Available Not Available No t Available bupropion HCl XL 150 mg 24 hr tablet, extended release active Not Available Not Available Not Available diclofenac 1 % topical gel Apply 2 g topically in the morning and 2 g at noon and 2 g in the evening and 2 g before bedtime. active Not Available Not Available No t Available Eye Itch Relief 0.025 % (0.035 %) drops Place 1 drop into both eyes in the morning and 1 drop before bedtime. active Not Available Not Available No t Available cholecalcife rol (vitamin D3) 50 mcg (2,000 unit) tablet Take 1 tablet by mouth in the morning. active Not Available Not Available No t Available Victoza 3-Benjamin 0.6 mg/0.1 mL (18 mg/3 mL) subcutaneous pen injector INJECT 3 MG DAILY active Not Available Not Available No t Available Mounjaro 2.5 mg/0.5 mL subcutaneous pen injector inject 2.5mg under the skin once weekly active Not Available Not Available Not Available Vitals Date Recorded Body temperature Respiratory rate Heart rate Oxygen saturation Oxygen saturation in Arterial blood by Pulse oximetry Systolic And Diastolic Provider Name and Address Organization Details Last Updated DateTime 4 97.3 [degF] 18 /min 95 /min 100 % 100 % 190/100 mm[Hg] Not Available [facility] [employer] 4 15:09:47 Date Recorded Heart rate Respiratory rate Oxygen saturation Oxygen saturation in Arterial blood by Pulse oximetry Body temperature Systolic And Diastolic Provider Name and Address Organization Details Last Updated DateTime 5 96 /min 16 /min 99 % 99 % 98.4 [degF] 149/87 mm[Hg] Not Available [facility] [employer] 5 18:02:39 Date Recorded Heart rate Oxygen saturation Oxygen saturation in Arterial blood by Pulse oximetry Body height Body weight Body temperature Respiratory rate Body temperature Systolic And Diastolic Provider Name and Address Organization Details Last Updated DateTime 4 98 /min 96 % 96 % 172.72 cm 114056. 96 g 103 [degF] 19 /min 99.3 [degF] 146/86 mm[Hg] Not Available [facility] [employer] 15:44:58 Social History None recorded. Functional Status None recorded. Mental Status None recorded. Family History Nothing Reported. Medical History No medical history recorded. Gynecological HistoryNo gynecological history recorded. Obstetrics History GPAL:G 0 P 0 0 0 0 Past Encounters Encounter ID Performer Location Encounter Start Date Encounter Closed Date Diagnosis/Indication Diagnosis SNOMED-CT Code Diagnosis ICD10 Code Diagnosis IMO Codes Diagnosis Note [id number] Julio Morales MD [facility] [address] [place] [phone] 02/19/2024 15:09:40 02/19/2024 23:20:23 Retention of urine 302921760 R33.9 Recently with thomas placed; draining well but cloudy urine. U/A not suggestive of UTI. Will send culture. Discussed red flag signs for which to seek higher level of care Essential hypertension 77899297 I10 BP elevated today in setting of recently taken off of Lisinopril for MARCELNIA; also hasn't taken Clonidine for 2 days. Wrote rx for two weeks as patient was out. Discussed red flag signs for which to seek higher level of care Constipation 11908098 K5 9.00 On Miralax. Recommeded to start Senna daily [id number] Mauro Echeverria MD [facility] [address] [place] [phone] 04/19/2024 15:44:49 04/19/2024 21:11:53 Pneumonia [id number] J18.9 [id number] ONEIDA BEDOYA MD [facility] [address] [phone] 04/07/2025 17:52:39 04/08/2025 11:41:30 Dysuria 89207895 R30.0 65388 Increased frequency of urination 894318666 R35.0 26850 Health Concerns Section Related Observation LastModified by Organization Detai ls LastModified Time None Recorded Concern Status LastModified by Organization Details LastModified Time None Recorded Advance Directives Directive None Recorded Payers Insurance Date Sequence Insurance Name Policy Number Policy Robb Covered Member ID Robb Member ID Guarantor Name 04/07/2025 1 [facility] - DOS ON OR AFTER 2022 - DUAL ELIGIBLE - LONG-TERM OPTIONS AND ONE CARE (MEDICARE REPLACEMENT/ADV ANTAGE - HMO) Evelyne Cirame [id number] Evelyne Reyes Notes Date Note Type Note Provider Name and Address Organization Details Recorded Time 02/19/2024 text/html HPI: Mbr transferred to [facility]. Mbr calling with Soheila RODARTE on the line. Mbr reports last she was sent to the ED following PCP appt and had blood work and a new thomas catheter placed and was d/c to home. Mbr reports she had a PCP appt yesterday and was told to monitor for s/sx of urinary infections and to follow-up with urologist in February. Mbr is requesting a home visit for education of new catheter and evaluation of infection. Mbr reports cloudy urine with white toilet paper looking material, L flank pain, though does state this has been chronic d/t sciatica. Mbr denies fever, chills, blood in urine, abd pain or addl sx noted at time of call. Mbr was educated on catheter care and was also advised to increase fluid intake. Mbr also reports constipation last BM 02/17 or 02/16, hard ball-like stool, painful to pass. Mbr reports taking colace twice a day. Mbr was advised [facility] referral would be submitted. Mbr was advised to call [facility] back for new, worsening sx or further questions or concerns.PMH includes but not limited to: generalized anxiety disorder, major depression, spinal stenosis, sciatica, HTN ....................... ....................... ....................... ....................... ....................... ....................... ... [facility] Nurse Triage Notes (James Lovett): Chief Complaints: UTI/Pyelonephritis, Constipation, Equipment-Related PMH: Hypertension Comments: HPI reviewed by this RN, no further information needed to process visit -Tarah Lovett RN Critical Care Physician Assistant Organization Information for Diane, [facility]ura - [facility] Business Legal Name: [employer]. Address: [address] [place] [address], Hearing Aid Fitter: Ludin BURDEN No.: [id number] Critical Care Physician Assistant POC Test Results from [facility] Contreras Urine Dipstick (15:09:32) Urine leukocytes: neg CHA Urine nitrites: neg NIT Urine urobilinogen: neg URO Urine protein: neg PRO Urine pH: neg pH Urine blood: postive BLO Urine specific gravity: 1015 SG Urine ketones: neg KET Urine bilirubin: neg CESAR Urine glucose: neg GLU Attachments uploaded as part of this test result can be found under Documents section. ....................... ....................... ....................... ....................... ....................... ....................... ... Critical Care Physician Assistant Note From Aura Contreras: SC11 on scene to find 63 yo female alert x 4 sitting in bed in NAD. Pt has a clear and patent airway with no WOB. Pt reports last week she had blood work done and was sent to the ER with acute kidney failure. Pt was found to have a cyst on her kidney and a thomas catheter was placed and pt was given follow up instructions for urology and nephrology. Pt was at PCP yesterday for a follow up and they told her to watch for signs of uti secondary to the thomas being in place. Today the pt put in a request for a visit because she thought maybe the urine looked cloudy. Upon assessment pt denies any cp/sob. No NVD. Pt is afebrile. Pt denies any new back pain and there is no CVA tenderness. The urine in the thomas catheter appears normal in color with no blood. Pt vitals as noted. Pts blood pressure is high and pt reports she was taken off lisnopril last ED last week and has not taken her Clonidine in 2 days because she needs a new refill. Pt also reports increased constipation and has been taking Miralax without relief. A urine dip is taken and results uploaded. [facility] contacted with report and clinical results. A urine culture is to be sent quest for further testing. [facility] will send prescription for Senna and 2 weeks of Clonidine to pts pharmacy. Pt has follow up with urology on Friday and Nephrology in February. Red Flags discussed with pt. SC11 clear CJO ....................... ....................... ....................... ....................... ....................... ....................... ... Disposition: Fulfilled Julio Morales MD [address] [place] [address],[address], [place], [phone], [employer] 02/19/2024 19:31:24 04/19/2024 text/html [facility] Nurse Triage Notes (James Lovett): Chief Complaints: Common cold symptoms, Cough PMH: Hypertension Comments: [employer] verified the patient's name//address and phone number. Pt calling reporting chest congestion for approx 3 weeks. Pt states she has gone through multiple boxes of Mucinex but states symptoms are not improving. Pt reports sputum is now green and yellow. Pt also reports voice is hoarse. Pt able to speak in full, complete sentences at time of call. Education provided on the response time and the patient was advised to monitor reported s/s and seek emergency treatment if needed -Tarah Lovett RN Critical Care Physician Assistant Organization Information for [facility] [employer] Legal Name: [facility] Address: [address] [place] [address], [place] [address], Hearing Aid Fitter: Evangelist Licea MD CLIA No.: [id number] Critical Care Physician Assistant POC Test Results from [facility] - [facility] Rapid COVID antigen (15:33:35) COVID: - Attachments uploaded as part of this test result can be found under Documents section. Rapid influenza antigen (15:33:36) Flu: - Attachments uploaded as part of this test result can be found under Documents section. ....................... ....................... ....................... ....................... ....................... ....................... ... Critical Care Physician Assistant Note From [facility]old Tran: Pt chief complaint today of a productive cough that has been producing green sputum for the past x2 weeks. Yayooes have a history of pneumonia and is concerned this may be another case of that. Pt states that for the above listed time she has bee feeling some general weakness, as well a not being able to get out of bed. To states she is taking in a normal amount of fluids each day. Pt also state that she has been taking mucinex every day for 3 weeks with little to no positive effect. Pt denies any cp outside of cough, sob as well a diarrhea. Pt does indorse nausea and vomiting just this morning. NKDANon neural focal exam, afebrile at 99.3, vitals WNL. Lungs are clear with a small amount of inspiratory crackle/ rake in the lower left lobe. Benign abdominal, no lower extremity edema noted.pt is coax4 with a GCS of 15. Covid[facility]flu negative [facility]. Pt is give 100 mg of doxycycline as well as 4 mg of oral zofran for possible pneumonia and nausea.Prescription is ent to local pharmacy for pt to take as instructed. Pt is educated on red flag S&S and informed to call emergency services if any begin to present. Pt is informed to call her pcp at earliest convenience if symptoms persist. ....................... ....................... ....................... ....................... ....................... ....................... ... [facility] Consulted: Mauro Echeverria ....................... ....................... ....................... ....................... ....................... ....................... ... Disposition: Alvaro Echeverria MD [address] [place] [address],[address] [facility], [place], [address], [employer] 04/19/2024 18:54:06 04/07/2025 text/html ROS as noted in the [facility] Nurse Triage Notes (Snow Rhodes - RN): Reason For Request: pain and pressure in back Patient Reports: Painful urination; Frequent and increased urination with flank pain; Painful urination with or without feverDenies: Unable to void greater than 5 hours Erection that will not go away after 2 hours Fall or trauma that results in urinary incontinence in the setting of pain Fall or injury that results in incontinence in the absence of pain Lower back pain either unilateral or bilateral, unable to void, painful urination -hematuria Inability to fully empty bladder Chief Complaints: Urinary Symptoms, Back PainPMH: Hypertension, Hyperlipidemia, Gastroesophageal Reflux Disease (GERD), Substance Use DisorderPMH Reviewed at 04/07/2025:26Allergies Reviewed at 04/07/2025:26Comments: 64 y.o female complains of Urinary Symptoms, Back PainPatient is self referringsymptoms started Friday or FridayReports some mid to low back pain, lower abdominal pressureendorses frequency and urgency, painful burning urinationdenies any vomiting/loose stool endorses nauseaurine is a darker than usual, denies any odor or hematuriano kidney issues she is aware of and denies any blood thinnersrequesting insted visit.I provided information on the mobile health provider response time and advised the patient and/or caregiver to monitor reported signs and symptoms. I discussed the warning signs of when to seek emergency care. Critical Care Physician Assistant Organization Information for Graciela Bansal Business Legal Name: [employer]. Address: [address] [place] [address], Hearing Aid Fitter: Ludin Merchant MD CLIA No.: [id number] Critical Care Physician Assistant POC Test Results from Graciela Bansal Urine Dipstick (18:03:46) Urine leukocytes: -CHA Urine nitrites: -NIT Urine urobilinogen: 0.2URO Urine protein: -PRO Urine pH: 5.0pH Urine blood: -BLO Urine specific gravity: 1.015SG Urine ketones: 5KET Urine bilirubin: 1BIL Urine glucose: 2000GLU Attachments uploaded as part of this test result can be found under Documents section. iSTAT Chem8+ (18:14:45) Na: 136mEq/L K: 4.1mEq/L Cl: 99mEq/L iCa: 1.26mmol/L TCO2: 31mmol/L Glu: 322mg/dL BUN: 16mg/dL Crea: 1.1mg/dL Hct: 36% Hb: 12.2g/dL Ammol/L Cartridge Number: [id number] Attachments uploaded as part of this test result can be found under Documents section. ....................... ....................... ....................... ....................... ....................... ....................... ... Critical Care Physician Assistant Note From Graciela Bansal: Single female patient being seen for UTI symptoms. She reports back pain for several days, but indicates more midline than typical flank pain and describes it more like her sciatica. She reports pain down her thighs and burning with urination. She reports the burning has been so extreme that she has even iced the area. She denies any fever or chills. She reports that she hasn't had frequent UTIs, but has had a couple in the past and they have generally present similar to this. Urine dip is negative, but culture is sent for confirmation. Dip results with very high glucose, so a BMP is drawn with a 23g butterfly in the right AC, single attempt, results as noted. Patient denies a diabetic diagnosis, reporting that she took mounjaro a while back for weight loss and because she was bordering on diabetic, but she has been off it for a while. After conferring with [facility], she is advised to go in to the ED for further workup and treatment for new onset unmanaged diabetes. She refuses, stating she intends to go to the ED tomorrow to request a psych hold to work on her depression and will get it looked into at that time. She is alert and oriented and able to answer all questions appropriately to refuse. She is aware of the risks of refusal, up to and including . She is willing to sign the refusal form against medical advice. She signs the [employer] refusal form. She is aware of red flags of worsening symptoms to seek more immediate treatment and is aware the recommendation is still treatment tonight. She is comfortable with her care plan of evaluation and treatment tomorrow. End of Report. [facility] [place] Orders: urinalysis, dipstick: Performed culture, urine: Performed ....................... ....................... ....................... ....................... ....................... ....................... ... [facility] Consulted: Oneida Bedoya ....................... ....................... ....................... ....................... ....................... ....................... ... Disposition: Fulfilled ONEIDA BEDOYA MD [address] [facility],[address], [place], [address], [employer] 04/08/2025 04:57:36 OBGyn Episode No OBEpisode recorded.
--- OUTSIDE RECORDS SUMMARY | 2025-04-13 13:33 | XMS_ITS | Encounter Summary ---
Author Organization [employer] [facility] Address [address] [place] [address] Care Team Providers Care Zinc Plating Machine Operator Name Role Phone Octavio Lopez MD Primary Care Provider Octavio Lopez MD Unavailable [phone] Bryn Mike MD Unavailable [phone] Klaus Christianson MD Unavailable [phone] Inder Real PsyD Unavailable [phone] Reason for Visit * Reason Onset Date Comments Med Question 12/09/2019 Encounter Details Date Type Department Care Team (Late st Contact Info) Description 12/09/[address] [place], [place] [phone] Ruthie Munoz PA-C [address] [place] [address] [phone] Med Question Social History Tobacco Use Types Packs/Day Years Used Date Smoking Tobacco: Every Day Cigarettes 0.5 5 Smokeless Tobacco: Never Alcohol Use Standard Drinks/Week [...] Orientation Straight 07/30/2023 10 :54 AM EST COVID-19 Exposure Response Date Recorded In the last month, have you been in contact with someone who was confirmed or suspected to have Coronavirus / COVID-19? No / Unsure 12/01/2019 4:39 PM EDT documented as of this encounter Miscellaneous Notes * Telephone Encounter - Katlin Smith - 12/09/2019 4:15 PM EDT ----- Message from Ruthie Munoz PA-C sent at 12/09/2019 3:50 PM EDT ----- Regarding: FW: Rx Refill issue. Hi central refill, Can you please list meds similar to diclofenac or other NSAIDs that would be covered by this pt's insurance? Thanks, Merari ----- Message ----- From: Bruce Bundy Sent: 12/09/2019 1:49 PM EDT To: Octavio Lopez MD, # Subject: Rx Refill issue. diclofenac (VOLTAREN) 75 MG EC tablet [[id number]] Patient calling for the medication listed above to the Ortho Department, Rerouting to PCP team. Sheis stating medication listed is $150 as her insurance will not cover this medication. She is hopingto find out if a new prescription can be created for the same purpose which would be covered under her insurance. documented in this encounter Plan of Treatment Upcoming Encounters Date Type Department Care Team (Latest Contact Info) Description 05/06/2025 12:40 PM EST Hospital Encounter [facility] - Operating Room [address] [place] [phone] Sacha Vicente Jr., MD [address] [place] [address] 05/06/2025 12:40 PM EST - 05/06/2025 1:10 PM EST Surgery [facility] - Operating Room [address] [place] [phone] Sacha Vicente Jr., MD [address] [place] [address] EGD (ESOPHAGOGASTRODUOD ENOSCOPY) Scheduled Procedures Name Priority Associated Diagnoses Date/Ti sd EGD (ESOPHAGOGASTRODUODENOS COPY) Nausea and vomiting, unspecified vomiting type Abdominal pain, epigastric 05/06/2025 12:40 PM EST documented as of this encounter Visit Diagnoses Not on filedocumented in this encounter Additional Health Concerns Infection Onset Date Last Indicated Resolved Time Rule out COVID-19 02/21/2021 02/21/2021 02/22/2021 7:09 AM EDT Rule out COVID-19 09/15/2024 09/15/2024 09/16/2024 12:02 AM EDT documented as of this encounter Care Teams Zinc Plating Machine Operator Relationship Specialty Start Date End Date Octavio Lopez MD [address] [place] [address] [phone] PCP - General Internal Medicine 12/10/13 Octavio Lopez MD [address] [place] [phone] PCP - Insurance PCP 02/14/16 Bryn Mike MD [address] [place] [phone] Psych[facility] 11/09/19 11/15/22 Klaus Christianson MD [address] [place] [address] [phone] Physician Psychiatry - General 03/03/25 Inder Real PsyD [address] [place] [phone] Psych Fellow Psychology 03/03/25 documented as of this encounter
--- OUTSIDE RECORDS SUMMARY | 2025-04-13 13:33 | XMS_ITS | Encounter Summary ---
Author Organization [facility] Address [address] [facility] [address] [place] [address] Encounters * CPT with Medical [facility]ED at [facility] on 2025-04-08 { reasonForRequest : pain and pressure in back , patientReports :"Painful urination; Frequent and increased urination with flank pain; Painful urination with or without fever , denies :[ Unable to void greater than 5 hours , Erection that will not go away after 2 hours , Fall or trauma that results in urinary incontinence in the setting of pain , Fall or injury that results in incontinence in the absence of pain , Lower back pain either unilateral or bilateral, unable to void, painful urination -hematuria , Inability to fully empty bladder ], chiefComplaints : UrinarySymptoms, Back Pain , pmh : Hypertension, Hyperlipidemia, Gastroesophageal Reflux Disease (GERD), Substance Use Disorder , allergies : No Known Drug Allergies&q uot;, otherAllergies : , painAssessment : , visitOutc ome : , additionalComments : 64 y.o female complains of Urinary Symptoms, Back Pain\nPatient is self referring\nsymptoms started Friday or Friday\nReports some mid to low back pain, lower abdominal pressure\nendorses frequency and urgency, painful burning urination\ndenies any vomiting/loose stool endorses nausea\nurine is a darker than usual, denies any odor or hematuria\nno kidney issues she is aware of and denies any blood thinners\nrequesting insted visit. \nI provided information on the mobile health provider response time and advised the patient and/or caregiver to monitor reported signs and symptoms. I discussed the warning signs of when to seek emergency care. } Single female patient being seen for UTI symptoms. She reports back pain for several days, but indicates more midline than typical flank pain and describes it more like her sciatica. She reports paindown her thighs and burning with urination. She reports the burning has been so extreme that she has even iced the area. She denies any fever or chills. She reports that she hasn't had frequent UTIs,but has had a couple in the past and they have generally present similar to this. Urine dip is negative, but culture is sent for confirmation. Dip results with very high glucose, so a BMP is drawn with a 23g butterfly in the right AC, single attempt, results as noted. Patient denies a diabetic diagn osis, reporting that she took mounjaro a while back for weight loss and because she was bordering on diabetic, but she has been off it for a while. After conferring with [facility], she is advised to go in to the ED for further workup and treatment for new onset unmanaged diabetes. She refuses, stating she intends to go to the ED tomorrow to request a psych hold to work on her depression and will get itlooked into at that time. She is alert [...] treatment and is aware the recommendation is stilltreatment tonight. She is comfortable with her care plan of evaluation and treatment tomorrow. End of Report. IV_(FLUIDS_AND/OR_MEDICATION), MEDICATION_IM, ORAL_MEDICATION, EKG, POC_BLOODWORK, GLUCOSE Written by Medical instED on 2025-04-08
--- OUTSIDE RECORDS SUMMARY | 2025-04-13 13:33 | XMS_ITS | Encounter Summary ---
Author Organization [employer] Address [address] [place] [phone] Care Team Providers Care Boxing Instructor Name Role Phone Unknown, Provider Primary Care Provider Huy rodriguez Encounter Details Date Type Department Care Team (Latest Contact Info) Description 04/08/2025 Travel Social History Tobacco Use Types Packs/Day Years Used Date Smoking Tobacco: Never Smokeless Tobacco: Never Comments:Pt vapes Alcohol Use Standard Drinks/Week Comments Not Currently 0 (1 standard drink = 0.6 oz pur e alcohol) AUDIT C Answer Date Recorded How often [...] PM EST documented as of this encounter Functional Status * Are you deaf or do you have serious difficulty hearing? Answer Date of Assessment Author No 04/08/2025 1:52 PM EST Velia Hurt * Are you blind or do you have serious difficulty seeing, even when wearing glasses? Answer Date of Assessment Author No 04/08/2025 1:52 PM EST Velia Hurt * Do you have serious difficulty walking or climbing stairs? Answer Date of Assessment Author No 04/08/2025 1:52 PM EST Velia Hurt * Do you have difficulty dressing or [...] PM Velia Mares documented in this encounter Plan of Treatment Not on file documented as of this encounter Visit Diagnoses Not on filedocumented in this encounter Additional Health Concerns Infection Onset Date Last Indicated Resolved Time Rule-Out Respiratory Virus 04/08/2025 04/08/2025 1 06/08/2024 3:18 PM EST documented as of this encounter Care Teams Boxing Instructor Relationship Specialty Start Date End Date Unknown, Provider, [address] [place] [id number] PCP - General 04/08/25 documented as of this encounter
--- OUTSIDE RECORDS SUMMARY | 2025-04-13 13:33 | XMS_ITS | Encounter Summary ---
Author Organization [employer] Address [address] [place] [address] Care Team Providers Care Software Developer Mid Level Name Role Phone Octavio Lopez MD Primary Care Provider Octavio Lopez MD Unavailable [phone] Bryn Mike MD Unavailable [phone] Klaus Christianson MD Unavailable [phone] Inder Real PsyD Unavailable [phone] Reason for Visit * Reason Onset Date Comments Results 02/17/2020 Encounter Details Date Type Department Care Team (Late st Contact Info) Description 02/17/[address] [address] Fide Wang, PA-C [address] [place] [address] Results Social History Tobacco Use Types Packs/Day Years [...] have Coronavirus / COVID-19? No / Unsure 02/17/2020 11:33 AM EDT documented as of this encounter Progress Notes * Alyssia Mancuso RN - 03/01/2020 2:47 PM EDT I spoke to pt Informed her of Dr. Lopez message She is requesting a letter she says he and she discussed in regard to being excused from methadone clinic groups on the days she feels ill * Alyssia Mancuso RN - 02/24/2020 8:36 AM EDT Pt vm full unable to leave . * Alyssia Mancuso RN - 02/21/2020 10:52 AM EDT I spoke to pt and informed her of Bala message She verbalized understanding Reports wanting to know if rx can be written for famotidine bid as it was after she left hospital It helped pt a lot with gallstone pain I will reach out to provider. documented in this encounter Plan of Treatment Upcoming Encounters Date Type Department Care Team (Latest Contact Info) Description 05/06/2025 12:40 PM EST Hospital Encounter [facility] - Operating Room [address] [place] [phone] Sacha Vicente Jr., MD [address] [place] [address] 05/06/2025 12:40 PM EST - 05/06/2025 1:10 PM EST Surgery [facility] - Operating Room [address] [place] [phone] Sacha Vicente Jr., MD [address] [place] [address] EGD (ESOPHAGOGASTRODUOD ENOSCOPY) Scheduled Procedures Name Priority [...] documented as of this encounter Care Teams Software Developer Mid Level Relationship Specialty Start Date End Date Octavio Lopez MD [address] [place] [phone] PCP - General Internal Medicine 12/10/13 Octavio Lopez MD [address] [place] [phone] PCP - Insurance PCP 02/14/16 Bryn Mike MD [address] [place] [phone] Psychiatrist [facility] 11/09/19 11/15/22 Klaus Christianson MD [address] [place] [address] [phone] Physician Psychiatry - General 03/03/25 Inder Real PsyD [address] [place] [phone] Psych Fellow Psychology 03/03/25 documented as of this encounter
--- OUTSIDE RECORDS SUMMARY | 2025-04-13 13:33 | XMS_ITS | Continuity of Care Document ---
Author Name [facility], Medical Address [address] [place] [address] Organization Unknown Address [address] [place] [address] Medications No known medications Problems No known problems
--- OUTSIDE RECORDS SUMMARY | 2025-04-13 13:33 | XMS_ITS | Encounter Summary ---
Author Organization [facility] [facility] Address [address] [place] [address] Care Team Providers Care Environmental Scientist Name Role Phone Octavio Lopez MD Primary Care Provider Octavio Lopez MD Unavailable [phone] Klaus Christianson MD Unavailable [phone] Inder Real PsyD Unavailable [phone] Reason for Visit * Reason Onset Date Comments Other 04/12/2025 Encounter Details Date Type Department Care Team (Late Contact Info) Description 04/12/2025 Telephone [facility] Care [facility] [address] [place] [address] Aura Wang Other Social History Tobacco Use Types Packs/Day Years [...] PM EST Osmar Garcia RN * (RETIRED) Because of a physical, [...] encounter Miscellaneous Notes * Telephone Encounter - Mango Gutierrez RN - 04/12/2025 9:38 AM EST Images from the original note were not included. FYI to PCP She did speak with Psychiatry yesterday. Still at [facility]. Klaus Christianson MD RR 04/11/25 1:59 PM Note Pt called front tender, TW returned call-- Reports depression has been worsening, consistent with prior years at this time with anniversaries and winter. Family increasingly worried, brought pt to [facility] on Friday. Pt still there in [facility], waiting for [facility] bed. Provided reassurance andencouragement for [facility] to reach out to for coordinated care. * Telephone Encounter - Aura Wang - 04/12/2025 8:28 AM EST Evelyne Reyes [phone], 64 year old, female Telephone Information: Work Phone Not on file. Calls today: to notify pcp/team she is currently in patient psych at [facility] care team toreach out to have her transferred to [facility] Person calling on behalf of patient: who is calling: Patient (self) CALL BACK NUMBER: [phone] Patient's language of care: Malagasy Patient does not need an auto bench mechanic. Patient's PCP: Octavio Lopez MD Primary Usp Site: [facility] documented in this encounter Plan of Treatment Upcoming Encounters Date Type Department Care Team (Latest Contact Info) Description 05/06/2025 12:40 PM EST Hospital Encounter [facility] Operating Room [address] [place] [phone] Sacha Vicente Jr., MD [address] [place] [address] 05/06/2025 12:40 PM EST - 05/06/2025 1:10 PM EST Surgery [facility] Operating Room [address] [place] [phone] Sacha Vicente Jr., MD [address] [place] [phone] EGD (ESOPHAGOGASTRODUOD ENOSCOPY) Scheduled Procedures Name Priority Associated Diagnoses Date/Ti in EGD (ESOPHAGOGASTRODUODENOS COPY) Nausea and vomiting, unspecified vomiting type Abdominal pain, epigastric 05/06/2025 12:40 PM EST documented as of this encounter Goals Goal Patient Goal Type Associated Problems Recent Progress Patient-Stated? Author Quit smoking / using tobacco Lifestyle (Healthcare Team Goals) No Opal Orozco [facility] Outreach Care Plan [facility] PATIENT RESOURCE COORDINATION No Blayne San Autogenerated Goal Care Plan Autogenerated Problem No Ruma Mendes documented as of this encounter Visit Diagnoses Not on filedocumented in this encounter Additional Health Concerns Active Problems Noted Date Diagnosed Date [facility] PATIENT RESOURCE COORDINATION 04/10/2022 Autogenerated Problem 03/10/2025 documented as of this encounter Care Teams Environmental Scientist Relationship Specialty Start Date End Date Octavio Lopez MD [address] [place] [address] PCP - General Internal Medicine 12/10/13 Octavio Lopez MD [address] [place] [address] PCP - Insurance PCP 02/14/16 Klaus Christianson MD [address] [place] [address] [phone] Physician Psychiatry - General 03/03/25 Inder Real, PsTanisha [address] [place] [address] Psych Fellow Psychology 03/03/25 documented as of this encounter
--- OUTSIDE RECORDS SUMMARY | 2025-04-13 13:34 | XMS_ITS | Encounter Summary ---
Author Organization [employer] Address [address] [place] [address] Care Team Providers Care Lidding Machine Operator Name Role Phone Octavio Lopez MD Primary Care Provider Octavio Lopez MD Unavailable [phone] Klaus Christianson MD Unavailable [phone] Inder RealyD Unavailable [phone] Encounter Details Date Type Department Care Team (Late st Contact Info) Description 09/21/[address] [phone] Jeffry Cadet MD [address] [facility] [place], [place] [phone] Social History Tobacco Use Types Packs/Day Years [...] encounter Miscellaneous Notes * Telephone Encounter - Kadeem Son - 09/22/2024 7:47 AM EDT 2ND OUTREACH Called patient ,patient didn't receive the call no option for vm Called patient's brother ,left voice message (09/22)(S/R) E-consult message - please book a telederm f/u in 4-6 weeks with PA per * Telephone Encounter - Kadeem Son - 09/21/2024 1:08 PM EDT 1st outreach Called patient , Phone ringing but no option for voicemail (09/21)(S/R) E-consult message - please book a telederm f/u in 4-6 weeks with PA per documented in this encounter Plan of Treatment Upcoming Encounters Date Type Department Care Team (Latest Contact Info) Description 05/06/2025 12:40 PM EST Hospital Encounter [facility] Operating Room [address] [place] [phone] Sacha Vicente Jr., MD [address] [place] [address] 05/06/2025 12:40 PM EST - 05/06/2025 1:10 PM EST Surgery [facility] Operating Room [address] [place] [phone] Sacha Vicente Jr., MD [address] [place] [address] EGD (ESOPHAGOGASTRODUOD ENOSCOPY) Scheduled Procedures Name Priority [...] Concerns Active Problems Noted Date Diagnosed Date [facility] PATIENT RESOURCE COORDINATION 04/10/2022 documented as of this encounter Care Teams Lidding Machine Operator Relationship Specialty Start Date End Date Octavio Lopez MD [address] [place] [phone] PCP - General Internal Medicine 12/10/13 Octavio Lopez MD [address] [place] [phone] PCP - Insurance PCP 02/14/16 Klaus Christianson MD [address] [place] [phone] Physician Psychiatry - General 03/03/25 Inder Real, PsyD [address] [place] [address] [place] WHITLOCK [id number] Psych Fellow Psychology 03/03/25 documented as of this encounter
--- OUTSIDE RECORDS SUMMARY | 2025-04-13 13:34 | XMS_ITS | Encounter Summary ---
Author Organization [employer] [facility] Address [address] [place] [address] Care Team Providers Care Health And Safety Manager Name Role Phone Octavio Lopez MD Primary Care Provider Octavio Lopez MD Unavailable [phone] Klaus Christianson MD Unavailable [phone] Inder Real PsyD Unavailable [phone] Reason for Visit * Reason Onset Date Comments Imm/Inj 07/23/2023 Encounter Details Date Type Department Care Team (Late st Contact Info) Description 07/23/2023 Telephone [facility] [address] [place] [address] Octavio Lopez MD [address] [place] [address] Imm/Inj Social History Tobacco Use Types Packs/Day Years [...] encounter Miscellaneous Notes * Telephone Encounter - Charline Enamorado - 07/23/2023 12:19 PM EST Nurse from [facility] called the Central Refill Department to complete a benefit analysis for the zoster Vaccine. The vaccine is covered under the patient???s [employer] medical coverage. Please choose Private documented in this encounter Plan of Treatment Upcoming Encounters Date Type Department Care Team (Latest Contact Info) Description 05/06/2025 12:40 PM EST Hospital Encounter [facility] - Operating Room [address] [place] [phone] Sacha Vicente Jr., MD [address] [place] [address] 05/06/2025 12:40 PM EST - 05/06/2025 1:10 PM EST Surgery [facility] - Operating Room [address] [place] [phone] Sacha Vicente Jr., MD [address] [place] [address] EGD (ESOPHAGOGASTRODUOD ENOSCOPY) Scheduled Procedures Name Priority [...] Concerns Active Problems Noted Date Diagnosed Date [facility] PATIENT RESOURCE COORDINATION 04/10/2022 Infection Onset Date Last Indicated Resolved Time Rule out COVID-19 09/15/2024 09/15/2024 09/16/2024 12:02 AM EDT documented as of this encounter Care Teams Health And Safety Manager Relationship Specialty Start Date End Date Octavio Lopez MD [address] [place] [address] PCP - General Internal Medicine 12/10/13 Octavio Lopez MD [address] [place] [address] PCP - Insurance PCP 02/14/16 Klaus Christianson MD [address] [place] [address] Physician Psychiatry - General 03/03/25 Inder Real, PsTanisha [address] [place] [address] Psych Fellow Psychology 03/03/25 documented as of this encounter
--- OUTSIDE RECORDS SUMMARY | 2025-04-13 13:34 | XMS_ITS | Encounter Summary ---
Author Organization [employer] [facility] Address [address] [place] [address] Care Team Providers Care Infection Control Coordinator Name Role Phone Octavio Lopez MD Primary Care Provider Octavio Lopez MD Unavailable [phone] Bryn Mike MD Unavailable [phone] Klaus Christianson MD Unavailable [phone] Inder RealyD Unavailable [phone] Encounter Details Date Type Department Care Team (Late st Contact Info) Description 02/06/2022 Brief Note [facility] - Psychiatry [address] [place] [address] Teresa Robles [address] [place] [address] Social History Tobacco Use Types Packs/Day Years [...] Description 05/06/2025 12:40 PM EST Hospital Encounter [facility] - Operating Room [address] [place] [phone] Sacha Vicente Jr., MD [address] [place] [address] 05/06/2025 12:40 PM EST - 05/06/2025 1:10 PM EST Surgery [facility] - Operating Room [address] [place] [phone] Sacha Vicente Jr., MD [address] [place] [address] EGD (ESOPHAGOGASTRODUOD ENOSCOPY) Scheduled Procedures Name Priority [...] documented as of this encounter Care Teams Infection Control Coordinator Relationship Specialty Start Date End Date Octavio Lopez MD [address] [place] [address] [phone] PCP - General Internal Medicine 12/10/13 Octavio Lopez MD [address] [place] [address] [phone] PCP - Insurance PCP 02/14/16 Bryn Mike MD [address] [place] [address] [phone] Psychiatrist [facility] 11/09/19 11/15/22 Klaus Christianson MD [address] [place] [address] [phone] Physician Psychiatry - General 03/03/25 Inder Real, [place] [address] [place] [address] Psych Fellow Psychology 03/03/25 documented as of this encounter
--- OUTSIDE RECORDS SUMMARY | 2025-04-13 13:34 | XMS_ITS | Encounter Summary ---
Author Organization [employer] [facility] Address [address] [place] [address] Care Team Providers Care Instructional Manager Name Role Phone Octavio Lopez MD Primary Care Provider Blayne San Unavailable [phone] Jessica Torres SPIRAL WEAVER Unavailable Unavail able Octavio Lopez MD Unavailable [phone] Jessica Torres SPIRAL WEAVER Unavailable Unavail able Bryn Mike MD Unavailable [phone] Klaus Christianson MD Unavailable Inder Real PsyD Unavailable [phone] Encounter Details Date Type Department Care Team (Late st Contact Info) Description 12/31/2016 INTAKE (for intake staff use only) [facility] - Psychiatry [address] [place] [address] Flakita Abel SPIRAL WEAVER [address] [place] [address] Social History Tobacco Use Types Packs/Day Years [...] AM EST documented as of this encounter Plan of Treatment Upcoming Encounters Date Type Department Care Team (Latest Contact Info) Description 05/06/2025 12:40 PM EST Hospital Encounter [facility] Operating Room [address] [place] [phone] Sacha Vicente Jr., MD [address] [place] [address] 05/06/2025 12:40 PM EST - 05/06/2025 1:10 PM EST Surgery [facility] Operating Room [address] [place] [phone] Sacha Vicente Jr., MD [address] [place] [address] EGD (ESOPHAGOGASTRODUOD ENOSCOPY) Scheduled Procedures Name Priority [...] documented as of this encounter Care Teams Instructional Manager Relationship Specialty Start Date End Date Octavio Lopez MD [address] [place] [phone] PCP - General Internal Medicine 12/10/13 Octavio Lopez MD [address] [place] [address] PCP - Insurance PCP 02/14/16 Blayne San [address] [place] [address] Community Health Worker 08/02/14 Jessica Torres, [facility] [address] [place] [address] Complex Care Management Primary Care Based - [facility] Family Medicine 03/07/15 09/08/17 Jessica Torres [facility] [address] [place] [address] Complex Care Management Primary Care Based - [facility] Family Medicine 10/16/17 08/13/18 Bryn Mike MD [address] [place] [address] Psychiatrist [facility] 11/09/19 11/15/22 Klaus Christianson MD [address] [place] [address] Physician Psychiatry - General 03/03/25 Inder Real, PsyD [address] [place] [address] Psych Fellow Psychology 03/03/25 documented as of this encounter
--- OUTSIDE RECORDS SUMMARY | 2025-04-13 13:34 | XMS_ITS | Encounter Summary ---
Author Organization [employer] [facility] Address [address] [place] [address] Care Team Providers Care Director Of Programming Name Role Phone Octavio Lopez MD Primary Care Provider Octavio Lopez MD Unavailable [phone] Bryn Mike MD Unavailable [phone] Klaus Christianson MD Unavailable [phone] Inder Real PsyD Unavailable [phone] Reason for Visit * Reason Onset Date Comments Med Question 10/08/2021 Encounter Details Date Type Department Care Team (Late st Contact Info) Description 10/08/2021 Telephone [facility] [address] [place] [address] Maddie Garcia PA-C [address] [place], [place] [phone] Med Question Social History Tobacco Use Types [...] of Assessment Author No 07/20/2020 10:00 PM Osmra Quick RN * (RETIRED) Because of a [...] encounter Miscellaneous Notes * Telephone Encounter - Maddie Garcia PA-C - 10/09/2021 12:55 PM EDT Returned call to patient No answer LVM Has in person visit scheduled for tomorrow If patient returns call, please clarify reason for call 10/09/21 Maddie Garcia PA-C * Telephone Encounter - Negar Alexander - 10/08/2021 12:13 PM EDT Hello Patient trying to get into contact with Dr. Garcia. I transferred her and states that she cannot get through the line was on hold for 15 minutes. Can someone please reach out to her [phone]. Thank you - negar documented in this encounter Plan of Treatment Upcoming Encounters Date Type Department Care Team (Latest Contact Info) Description 05/06/2025 12:40 PM EST Hospital Encounter [facility] Operating Room [address] [place] [address] Sacha Vicente Jr., MD [address] [place] [address] 05/06/2025 12:40 PM EST - 05/06/2025 1:10 PM EST Surgery [facility] Operating Room [address] [place] [phone] Sacha Vicente Jr., MD [address] [place] [address] EGD (ESOPHAGOGASTRODUOD ENOSCOPY) Scheduled Procedures Name Priority [...] documented as of this encounter Care Teams Director Of Programming Relationship Specialty Start Date End Date Octavio Lopez MD [address] [place] [address] [place] [address] PCP - General Internal Medicine 12/10/13 Octavio Lopez MD [address] [place] [address] [place] [address] PCP - Insurance PCP 02/14/16 Bryn Mike MD [address] [place] [address] Psychiatrist [facility] 11/09/19 11/15/22 Klaus Christianson MD [address] [place] [address] Physician Psychiatry - General 03/03/25 Inder Real, [place] [address] [place] [address] Psych Fellow Psychology 03/03/25 documented as of this encounter
--- OUTSIDE RECORDS SUMMARY | 2025-04-13 13:34 | XMS_ITS | Clinical Summary ---
Author Organization [facility] Address [address] [place] [address] Phone Care Team Providers Care Whiting Can Worker Name Role Phone Unavailable Primary Care Provider Unavailabl e Allergies No known active allergies Medications meTHAdone, CONCENTRATED, (DOLOPHINE) 10 mg/mL oral solution Take 55 mg by mouth. 9 Active ergocalciferol (ERGOCALCIFEROL ) 1,250 mcg (50,000 unit) capsule Take 50,000 Units by mouth every 7 days. 9 Active albuterol (VENTOLIN HFA) 90 mcg/actuation HFA inhaler INHALE 2 PUFFS INTO THE LUNGS EVERY 6 HOURS NEEDED FOR WHEEZING OR SHORTNESS OF BREATH 9 Active amoxicillin-cla vulanate (AUGMENTIN) 875-125 mg per tablet Take 1 tablet by mouth every 12 (twelve) hours. 14 tablet 0 Active Social History Tobacco Use Types Packs/Day Years Used Date Smoking Tobacco: Every Day Housing Answer Date Recorded What is your living situation today? I have a [facility] place to live 06/21/2019 Comments No Sex and Gender Information Value Date Recorded Sex Assigned at Not on file Legal Sex Female 8:50 AM EST Gender Identity Not on file Sexual Orientation Not on file Last Filed Vital Signs Vital Sign Reading Time Taken Comments Blood Pressure 162/97 06/21/2019 9:01 AM EST Pulse 75 06/21/2019 9:01 AM EST Temperature 36.6 C (97.8 F) 06/21/2019 9:01 AM EST Respiratory Rate 18 06/21/2019 9:01 AM EST Oxygen Saturation 96% 06/21/2019 9:01 AM EST Inhaled Oxygen Concentration - - Weight 76.2 kg (168 lb) 06/21/2019 9:01 AM EST Height 167.6 cm (5' 6 ) 06/21/2019 9:01 AM EST Body Mass Index 27.12 06/21/2019 9:01 AM EST Plan of Treatment Not on file
--- OUTSIDE RECORDS SUMMARY | 2025-04-13 13:34 | XMS_ITS | Patient Health Record ---
Author Organization [facility] Address [address] [place] [address] Care Team Providers Care Calf Skinner Name Role Phone Octavio Lopez Primary Care Provider Dov diaz Clinical, Operations Unavailable Unavailable Allergies No Known Allergies Reason For Referral No Information Medications Medication SIG (Take, Route, Frequency, Duration) Notes Start Date End Date Status Methadone HCl 53mg/14ml oral daily Active Docusate Sodium 100 MG 1 capsule as need ed Orally twice a day Active Atorvastatin Calcium 80 MG 1 tablet Orally Once a day Active Fluticasone Propionate 50 MCG/ACT 1 spray in each nostril Nasally Once a day Active tiZANidine HCl 2 MG 1 tablet at bedtime as needed Orally every 4 hours as needed Active Vitamin D (Cholecalciferol) 50 MCG (1999 UT) 1 capsule Orally Once a day Active Lisinopril 20 MG 1 tablet Orally Once a day Active hydrOXYzine HCl 25 MG 1 tablet as needed Orally Once a day 1-2 times a day Active cloNIDine HCl 0.1 MG 1 tablet Orally twice a day Active Gabapentin 800 MG 1 tablet Orally three times a day Active Immunizations Vaccine Route Administration Date Status Comme nts Flu Vac (Fluzone /Alfuria) QIV PFS Unknown 03/05/2022 A dministered Moderna COVID-19 Vaccine IM Unknown 12/18/2020 Administ ered [employer] COVID-19 Vac cine 12+ IM Unknown 03/05/2022 Administered Problems Problem Type SNOMED Code ICD Code Onset Dates Problem Status W/U Status Risk Notes Problem Generalized anxiety disorder (52142312) DOM (generalized anxiety disorder) (F41.1) Active confirmed Problem Moderate recurrent major depression (08564761) Moderate recurrent major depression (F33.1) Active confirmed Problem Lymphadenopathy (75256869) Enlarged lymph nodes, unspecified (R59.9) Active confirmed Problem Spinal stenosis of lumbar region (92285185) Spinal stenosis, lumbar region, without neurogenic claudication (M48.061) Active confirmed Problem Sciatica (38997139) Acute left-sided back pain with sciatica (M54.42) Active confirmed Plan Of Treatment No Information Insurance Providers Payer Name Payer Address Payer Phone Subscriber Number Group Number Insured Name Patient Relationship to Insured Coverage Start Date Coverage End Date [address] [phone] [id number] LINDSAY CHRIS Self - patient is the insured 5 5
--- OUTSIDE RECORDS SUMMARY | 2025-04-13 13:34 | XMS_ITS | Clinical Summary ---
Author Organization [employer] [facility] lin Address [address] [place] [address] Care Team Providers Care Manager Reimbursement Name Role Phone No, Pcp SQL ENGINEER Primary Care Provider Unavailabl e Social History Tobacco Use Types Packs/Day Years Used Date Smoking Tobacco: Never Assessed Comments Unknown Sex and Gender Information Value Date Recorded Sex Assigned at Not on file Legal Sex Female 10:56 AM EST Gender Identity Not on file Sexual Orientation Not on file Plan of Treatment Not on file Medical Devices Not on file Care Teams Manager Reimbursement Relationship Specialty Start Date End Date No, Pcp, SQL ENGINEER N/A Do not use PCP - General Family Medicine 07/18/20
--- OUTSIDE RECORDS SUMMARY | 2025-04-13 13:34 | XMS_ITS | Encounter Summary ---
Author Organization [employer] [facility] Address [address] [place] [address] Care Team Providers Care Melting Supervisor Name Role Phone Octavio Lopez MD Primary Care Provider Octavoi Lopez MD Unavailable [phone] Bryn Mike MD Unavailable [phone] Klaus Christianson MD Unavailable [phone] Inder Real PsyD Unavailable [phone] Reason for Visit * Reason Onset Date Comments Letter 11/14/2022 Housing Encounter Details Date Type Department Care Team (Late st Contact Info) Description 11/14/[address] [place] [address] Octavio Lopez MD [address] [place] [address] [phone] Letter (Housing ) Social History Tobacco Use Types Packs/Day Years [...] encounter Miscellaneous Notes * Telephone Encounter - Len Salamanca - 11/14/2022 11:16 AM EDT Evelyne Reyes [phone], 62 year old, female Calls today: Clinical Questions (NON-SICK CLINICAL QUESTIONS ONLY) Name of person calling Self Specific nature of request Pt requesting letter for housing for an aide to stay with her, pt son ghanshyamaving to go back to [place] and needs this accomodation they're requesting a letter from psychiatrist requesting call back thank you Return phone number [phone] Person calling on behalf of patient: Patient (self) Patient's language of care: [place] Islander Patient does not need an marketing strategy lead. Patient's PCP: Octavio Lopez MD Primary Assisted Site: [facility] documented in this encounter Plan of Treatment Upcoming Encounters Date Type Department Care Team (Latest Contact Info) Description 05/06/2025 12:40 PM EST Hospital Encounter [facility] Operating Room [address] [place] [phone] Sacha Vicente Jr., MD [address] [place] [address] 05/06/2025 12:40 PM EST - 05/06/2025 1:10 PM EST Surgery [facility] Operating Room [address] [place] [phone] Sacha Vicente Jr., MD [address] [place] [address] EGD (ESOPHAGOGASTRODUOD ENOSCOPY) Scheduled Procedures Name Priority [...] Concerns Active Problems Noted Date Diagnosed Date [facility] PATIENT RESOURCE COORDINATION 04/10/2022 Infection Onset Date Last Indicated Resolved Time Rule out COVID-19 09/15/2024 09/15/2024 09/16/2024 12:02 AM EDT documented as of this encounter Care Teams Melting Supervisor Relationship Specialty Start Date End Date Octavio Lopez MD [address] [place] [address] PCP - General Internal Medicine 12/10/13 Octavio Lopez MD [address] [place] [address] PCP - Insurance PCP 02/14/16 Bryn Mike MD [address] [place] [address] Psychiatrist [facility] 11/09/19 11/15/22 Klaus Christianson MD [address] [place] [address] Physician Psychiatry - General 03/03/25 Inder Real PsyD [address] [place] [address] Psych Fellow Psychology 03/03/25 documented as of this encounter
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
--- OUTSIDE RECORDS SUMMARY | 2025-04-13 13:34 | XMS_ITS | Encounter Summary ---
Author Organization [email or web address] [facility] iance Address [address] [place] [address] Care Team Providers Care Turning Sander Operator Name Role Phone Octavio Lopez MD Primary Care Provider Octavio Lopez MD Unavailable [phone] Bryn Mike MD Unavailable [phone] Klaus Christianson MD Unavailable [phone] Inder Real PsyD Unavailable [phone] Encounter Details Date Type Department Care Team (Late st Contact Info) Description 09/13/2021 Telephone [facility] Pharmacy Immunization Clinic - [address] [address] Maddie De La Vega Social History Tobacco Use Types Packs/Day Years [...] Exposure Response Date Recorded In the last 10 days, have yo u been in contact with someone who was confirmed or suspected to have Coronavirus/COVID-19? Unable to assess 09/06/2021 11:19 AM EDT documented as of this encounter Functional Status [...] Miscellaneous Notes * Telephone Encounter - Maddie De La Vega - 09/13/2021 12:55 PM EDT Niko, Yes patient is eligable for 340B vyas discount The cost with insurance: $47 Cost with 340B discount vyas pricing: $42.50 Thanks! * Telephone Encounter - Maddie De La Vega - 09/13/2021 12:55 PM EDT ----- Message from Maddie Garcia PA-C sent at 09/13/2021 11:42 AM EDT ----- Ok Pharmacy team, Patient is still struggling to afford her incruse d/t cost. Last time we got a quote thru [facility] pharmacy it was around $45. Would this qualify for 340B pricing? -Maddie documented in this encounter Plan of Treatment Upcoming Encounters Date Type Department Care Team (Latest Contact Info) Description 05/06/2025 12:40 PM EST Hospital Encounter [facility] Operating Room [address] [place] [phone] Sacha Vicente Jr., MD [address] [place] [phone] 05/06/2025 12:40 PM EST - 05/06/2025 1:10 PM EST Surgery [facility] Operating Room [address] [place] [phone] Sacha Vicente Jr., MD [address] [place] [phone] EGD (ESOPHAGOGASTRODUOD ENOSCOPY) Scheduled Procedures Name Priority [...] documented as of this encounter Care Teams Turning Sander Operator Relationship Specialty Start Date End Date Octavio Lopez MD [address] [place] [address] [place] [address] PCP - General Internal Medicine 12/10/13 Octavio Lopez MD [address] [place], [place] [address] [address] PCP - Insurance PCP 02/14/16 Bryn Mike MD [address] [place] [phone] Psychiatrist [facility] 11/09/19 11/15/22 Klaus Christianson MD [address] [place] [address] [id number] Physician Psychiatry - General 03/03/25 Inder Real, PsTanisha [address] [place] [id number] Psych Fellow Psychology 03/03/25 documented as of this encounter
[2025-04-13 16:57] LABS: Glucose, Whole Blood 325 mg/dL (60-115)
[2025-04-13 20:00] VITALS: BP 141/89; PULSE 89; RESP 16; TEMP 36.7; O2SAT 95
[2025-04-13 20:15] LABS: Glucose, Whole Blood 249 mg/dL (60-115)
[2025-04-13] MEDS: Magnesium Hydrox/Alum Hydrox 30 ML ORAL.SUSP PO (20:20)
[2025-04-13] MEDS: methADONE HCl 20 MG/2 ML ORAL.CONC 53 MG PO (20:27)
[2025-04-13] MEDS: Ketotifen Fumarate 0.025% Oph 5 ML DRPBTL 1 DROP EYE-BOTH (20:28)
[2025-04-14 07:00] VITALS: BMI 43.7
[2025-04-14 07:15] VITALS: BP 127/60; PULSE 69; RESP 18; TEMP 36.2; O2SAT 97
[2025-04-14 07:33] LABS: Glucose, Whole Blood 240 mg/dL (60-115)
[2025-04-14 08:21] VITALS: BP 127/60
[2025-04-14] MEDS: Ketotifen Fumarate 0.025% Oph 5 ML DRPBTL 1 DROP EYE-BOTH ×2 (08:32→21:20)
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
[2025-04-14 11:48] LABS: Glucose, Whole Blood 305 mg/dL (60-115)
[2025-04-14 14:50] VITALS: BP 119/65; PULSE 61
[2025-04-14] MEDS: methADONE HCl 20 MG/2 ML ORAL.CONC PO (14:57)
[2025-04-14 16:56] LABS: Glucose, Whole Blood 297 mg/dL (60-115)
[2025-04-14 21:09] VITALS: BP 104/60; PULSE 83; RESP 18; TEMP 36.3; O2SAT 96
[2025-04-14] MEDS: methADONE HCl 20 MG/2 ML ORAL.CONC 30 MG PO (21:15)
[2025-04-14 21:16] LABS: Glucose, Whole Blood 245 mg/dL (60-115)
[2025-04-15 07:41] LABS: Glucose, Whole Blood 250 mg/dL (60-115)
[2025-04-15 07:55] VITALS: BP 93/50; PULSE 61; RESP 20; TEMP 36.3; O2SAT 95
[2025-04-15] MEDS: Ketotifen Fumarate 0.025% Oph 5 ML DRPBTL 1 DROP EYE-BOTH ×2 (10:01→22:20)
[2025-04-15 10:03] VITALS: BP 84/64; PULSE 66
[2025-04-15 11:57] LABS: Glucose, Whole Blood 223 mg/dL (60-115)
--- NOTE | 2025-04-15 12:40 | PC.NURSE ---
Pt's 12:30 methadone documented as not given d/t pt requesting the scheduled time be changed to 14:30. Provider Johanna Trevino notified via tiger text of pt's request, pending order change.
[2025-04-15 15:00] VITALS: BP 141/63; PULSE 62
[2025-04-15] MEDS: methADONE HCl 20 MG/2 ML ORAL.CONC PO (15:07)
[2025-04-15 17:01] LABS: Glucose, Whole Blood 274 mg/dL (60-115)
--- NOTE | 2025-04-15 19:36 | P.PNPSI_ITS ---
Subjective Subjective Date of Service: 04/15/25 Reason For Visit: Major Depressve dsorder Subjective Notes: Conditional Voluntary Interim History: Chart reviewed. Case discussed in team Pt denies any issues w/ the switch to split methadone dosing and 3 mg taper yesterday (which she requested). Slept better last night. Repsonding well to milieu therapy. She's sad that she's missing her son's proposal tomorrow. Agreeable w/ starting abilify for tx of depression Mental Status Exam Mental Status Exam Narrative: Appearance: Casually dressed. She has a brown clip on bun over camilo hair. Good eye contact Attitude: Cooperative Speech: Excessive, requires redirection. otherwise wnl Motor activity: Calm and without any tics, tremors or dyskinesias. Steady gait Mood: better overall, still anxious and depressed Affect: appropriate, reactive Thought process: Circumstantial Thought content: as noted above. Endorses PDW. Denies violent ideation Perception: Denies AH/VH and does not appear to respond to internal stimuli Alert/oriented in all spheres Cognition grossly intact Insight: intact Judgment: intact Diagnostics Vital Signs (24Hr): Vital Signs - 24 hr 04/14/25 21:09 04/15/25 07:55 04/15/25 10:03 Temperature 97.3 F 97.3 F Pulse Rate 83 61 66 Respiratory Rate 18 20 Blood Pressure 104/60 93/50 L 84/64 L Pulse Oximetry 96 95 Oxygen Delivery Method Room Air 04/15/25 15:00 Temperature Pulse Rate 62 Respiratory Rate Blood Pressure 141/63 H Pulse Oximetry Oxygen Delivery Method BMI result Body Mass Index 43.7 Labs 04/13/25 07:33 Labs: Laboratory Results - last 48 hr 04/13/25 04/14/25 04/14/25 20:09 07:27 11:43 POC Glucose 249 H 240 H 305 H 04/14/25 04/14/25 04/15/25 16:52 21:12 07:35 POC Glucose 297 H 245 H 250 H 04/15/25 04/15/25 11:53 16:55 POC Glucose 223 H 274 H Medications Medications Current Medications Acetaminophen (Acetaminophen 325 Mg Tablet) 650 mg PO Q6H PRN PRN Reason: Headache/Pain, Scale 1-10 Al Hydroxide/Mg Hydroxide (Magnesium Hydrox/Alum Hydrox 30 Ml Oral.Susp) 30 ml PO Q6H PRN PRN Reason: Heartburn/Nausea Last Admin: 04/13/25 20:20 Dose: 30 ml Aripiprazole (Aripiprazole 2 Mg Tablet) 2 mg PO DAILY [facility] Atorvastatin Calcium (Atorvastatin Calcium 80 Mg Tablet) 80 mg PO DAILY [facility] Last Admin: 04/15/25 08:23 Dose: 80 mg Clonidine HCl (Clonidine Hcl 0.1 Mg Tablet) 0.1 mg PO DAILY PRN; Protocol PRN Reason: Anxiety Last Admin: 04/14/25 14:52 Dose: 0.1 mg Clonidine HCl (Clonidine Hcl 0.1 Mg Tablet) 0.1 mg PO DAILY [facility]; Protocol Last Admin: 04/15/25 10:04 Dose: Not Given Clonidine HCl (Clonidine Hcl 0.2 Mg Tablet) 0.2 mg PO BEDTIME [facility]; Protocol Last Admin: 04/14/25 21:19 Dose: 0.2 mg Dextrose (Dextrose 50 % 25 Gm/50 Ml Syringe) 25 gm IVPUSH Q15M PRN; Protocol PRN Reason: per Hypoglycemia Standing Ord. Famotidine (Famotidine 20 Mg Tablet) 40 mg PO DAILY [facility] Last Admin: 04/15/25 08:23 Dose: 40 mg Gabapentin (Gabapentin 400 Mg Capsule) 800 mg PO TID [facility] Last Admin: 04/15/25 15:10 Dose: 800 mg Glucose (Glucose Gel 15 Gm Gel..Gram.) 15 gm PO Q15M PRN; Protocol PRN Reason: per Hypoglycemia Standing Ord. Hydroxyzine HCl (Hydroxyzine Hcl 25 Mg Tablet) 25 mg PO Q6H PRN PRN Reason: mild anxiety Last Admin: 04/15/25 15:12 Dose: 25 mg Insulin Human Lispro (Insulin Lispro 100 Unit/Ml 3 Ml Vial) 0 unit SUBCUT QIDACHS [facility]; Protocol Last Admin: 04/15/25 17:05 Dose: 6 unit Ketotifen Fumarate (Ketotifen Fumarate 0.025% Oph 5 Ml Drpbtl) 1 drop EYE-BOTH BID [facility] Last Admin: 04/15/25 10:01 Dose: 1 drop Lidocaine (Lidocaine 4 % Patch Adh..Patch) 2 patch TRANSDERMA DAILY [facility]; Protocol Lisinopril (Lisinopril 20 Mg Tablet) 20 mg PO DAILY [facility]; Protocol Last Admin: 04/15/25 10:04 Dose: Not Given Magnesium Hydroxide (Milk Of Magnesia 30 Ml Oral.Susp) 30 ml PO DAILY PRN PRN Reason: Constipation Methadone HCl (Methadone Hcl 20 Mg/2 Ml Oral.Conc) 30 mg PO BEDTIME [facility] Last Admin: 04/14/25 21:15 Dose: 30 mg Methadone HCl (Methadone Hcl 20 Mg/2 Ml Oral.Conc) 20 mg PO DAILY@1430 [facility] Last Admin: 04/15/25 15:07 Dose: 20 mg Nicotine (Nicotine 21 Mg Patch.Td24) 21 mg TRANSDERMA DAILY PRN PRN Reason: nicotine craving Nicotine Polacrilex (Nicotine Polacrilex 2 Mg Gum) 2 mg BUCCAL Q2H PRN PRN Reason: Nicotine Cravings Olanzapine (Olanzapine 5 Mg Tablet) 5 mg PO BID PRN PRN Reason: agitation Omeprazole (Omeprazole 20 Mg Capsule.Dr) 20 mg PO DAILY@0630 [facility] Last Admin: 04/15/25 06:37 Dose: 20 mg Promethazine HCl (Promethazine Hcl 25 Mg Tablet) 25 mg PO Q8H PRN PRN Reason: Nausea Last Admin: 04/15/25 10:00 Dose: 25 mg Sitagliptin Phosphate (Sitagliptin Phosphate 25 Mg Tablet) 25 mg PO DAILY [facility] Last Admin: 04/15/25 08:22 Dose: 25 mg Tizanidine HCl (Tizanidine Hcl 4 Mg Tablet) 4 mg PO Q8H PRN PRN Reason: Muscle Spasm Last Admin: 04/15/25 09:59 Dose: 4 mg Trazodone HCl (Trazodone Hcl 50 Mg Tablet) 50 mg PO BEDTIME MRX1 PRN PRN Reason: Insomnia Vitamin D (Cholecalciferol (Vitamin D3) 25 Mcg Tablet) 50 mcg PO DAILY [facility] Last Admin: 04/15/25 08:23 Dose: 50 mcg Allergies Allergies Allergy/AdvReac Type Severity Reaction Status Date / Time No Known Allergies Allergy Verified 04/12/25 17:41 Assessment & Plan Assessment & Plan (1) MDD (major depressive disorder), recurrent severe, without psychosis: Status: Acute Code(s): F33.2 - Major depressive disorder, recurrent severe without psychotic features (2) PTSD (post-traumatic stress disorder): Status: Acute Code(s): F43.10 - Post-traumatic stress disorder, unspecified (3) Opioid use disorder, severe, on maintenance therapy, dependence: Status: Acute Code(s): F11.20 - Opioid dependence, uncomplicated (4) Cocaine use disorder in remission: Status: Acute Code(s): F14.91 - Cocaine use, unspecified, in remission Plan Ms. Reyes is a 64 yo partnered W F with h/o MDD, PTSD, ADHD, OUD on methadone, cocaine use d/o in remission, type II DM, HTN, HLD, CKD, and COPD who self- presented to the [facility] ED due to worsening depression and passive SI. She was transferred to [facility] for safety and stabilization. Pt endorses an extensive h/o trauma and has been grieving the losses of multiple loved ones (all occurred years ago). She is stressed w/ her current housing since she frequently hears sirens and it triggers her PTSD. It's not clear if there have been more acute stressors contributing to her worsening depression, as her thought process is circumstantial and she needed frequent redirection. She sought a voluntary inpatient psychiatric admission due to worsening depression but is stressed about being far from her support system at home. She has a h/o multiple failed antidepressant trials and can't recall all of them. Plan: Admitted to for safety and stabilization Legal status- CV 15 min safety checks Continue current home meds for now. Not currently taking mirtazapine Pt provided consent for me to communicate w/ her outpatient psychiatrist for care coordination. Will reach out tomorrow Medical H&P completed by hospitalist and reviewed by t/w. Input appreciated * Chronic kidney disease stage IIIB -Baseline creatinine 1.7 EGFR 36 -Avoid nephrotoxins * Hypertension/hyperlipidemia -Continue atorvastatin, clonidine, and lisinopril * COPD -Not in acute exacerbation -Not on maintenance meds * Type 2 diabetes -Recent A1c 12.1 - reports that she was on metformin and Mounjaro as an outpatient -Unable to bring in her Mounjaro due to distance of her family -Will start Januvia and insulin sliding scale. -She will need to follow up with the primary care outpatient. -Metformin not restarted due to elevated liver functions * Elevated LFTs -Patient reports her LFTs have been elevated in the past -She currently follows GI outpatient for this. 04/15: Mood has improved with milieu therapy. Tolerated methadone taper by 3 mg. Pt agreeable w/ plan to start Abilify tomorrow for tx of depression and off- label for anxiety. Otherwise continue current tx plan Patient educated on: diagnosis, medication risk/benefits and therapeutic strategies Informed Consent: understands Reason for continued inpatient stay Substantial Risk for: inability to function and med/psych decompensation Time Spent With Patient Time: Total time managing care of this patient today ____ minutes.
[2025-04-15 19:50] VITALS: BP 139/78; PULSE 101; RESP 17; TEMP 36.7; O2SAT 99
[2025-04-15 21:02] LABS: Glucose, Whole Blood 237 mg/dL (60-115)
[2025-04-15] MEDS: methADONE HCl 20 MG/2 ML ORAL.CONC 30 MG PO (22:18)
[2025-04-15 22:19] VITALS: BP 142/70
[2025-04-16 07:49] VITALS: BP 116/56; PULSE 71; RESP 16; TEMP 36.2; O2SAT 97
[2025-04-16 07:52] LABS: Glucose, Whole Blood 211 mg/dL (60-115)
[2025-04-16] MEDS: Lidocaine 4 % Patch ADH..PATCH 2 PATCH TRANSDERMA (08:42)
--- NOTE | 2025-04-16 09:29 | P.PNPSI_ITS ---
Subjective Subjective Date of Service: 04/16/25 Reason For Visit: Major Depressve dsorder Subjective Notes: Conditional Voluntary Interim History: Patient was seen and discussed in rounds today. Records and plans were reviewed. She is requesting for an order for medicated shampoo which she uses at home. Ketoconazole shampoo was ordered. She also wanted to go over her medications, the times she is given a and how she wants to take him. They appeared to have been written according to what she had requested. She will talk to nursing while she is being administered and if I need to make any changes I will within reason. No SI. Review of Systems Review of Systems Yes all other systems are reviewed and are negative Mental Status Exam Mental Status Exam Narrative: In today's visit she is alert, oriented and pleasant. Normal speech. Good eye contact. Affect is appropriate and varied. No acute signs of psychosis. No AVH. No delusions. Cognitively intact. No SI. Judgment is intact Diagnostics Vital Signs (24Hr): Vital Signs - 24 hr 04/15/25 10:03 04/15/25 15:00 04/15/25 19:50 Temperature 98.1 F Pulse Rate 66 62 101 H Respiratory Rate 17 Blood Pressure 84/64 L 141/63 H 139/78 Pulse Oximetry 99 Oxygen Delivery Method Room Air 04/15/25 22:19 04/16/25 07:49 Temperature 97.2 F Pulse Rate 71 Respiratory Rate 16 Blood Pressure 142/70 H 116/56 L Pulse Oximetry 97 Oxygen Delivery Method Room Air BMI result Body Mass Index 43.7 Labs 04/13/25 07:33 Labs: Laboratory Results - last 48 hr 04/14/25 04/14/25 04/14/25 11:43 16:52 21:12 POC Glucose 305 H 297 H 245 H 04/15/25 04/15/25 04/15/25 07:35 11:53 16:55 POC Glucose 250 H 223 H 274 H 04/15/25 04/16/25 20:56 07:46 POC Glucose 237 H 211 H Medications Medications Current Medications Acetaminophen (Acetaminophen 325 Mg Tablet) 650 mg PO Q6H PRN PRN Reason: Headache/Pain, Scale 1-10 Al Hydroxide/Mg Hydroxide (Magnesium Hydrox/Alum Hydrox 30 Ml Oral.Susp) 30 ml PO Q6H PRN PRN Reason: Heartburn/Nausea Last Admin: 04/13/25 20:20 Dose: 30 ml Aripiprazole (Aripiprazole 2 Mg Tablet) 2 mg PO DAILY [facility] Last Admin: 04/16/25 08:34 Dose: 2 mg Atorvastatin Calcium (Atorvastatin Calcium 80 Mg Tablet) 80 mg PO DAILY [facility] Last Admin: 04/16/25 08:35 Dose: 80 mg Clonidine HCl (Clonidine Hcl 0.1 Mg Tablet) 0.1 mg PO DAILY PRN; Protocol PRN Reason: Anxiety Last Admin: 04/14/25 14:52 Dose: 0.1 mg Clonidine HCl (Clonidine Hcl 0.1 Mg Tablet) 0.1 mg PO DAILY [facility]; Protocol Last Admin: 04/16/25 08:35 Dose: 0.1 mg Clonidine HCl (Clonidine Hcl 0.2 Mg Tablet) 0.2 mg PO BEDTIME [facility]; Protocol Last Admin: 04/15/25 22:19 Dose: 0.2 mg Dextrose (Dextrose 50 % 25 Gm/50 Ml Syringe) 25 gm IVPUSH Q15M PRN; Protocol PRN Reason: per Hypoglycemia Standing Ord. Famotidine (Famotidine 20 Mg Tablet) 40 mg PO DAILY [facility] Last Admin: 04/16/25 08:35 Dose: 40 mg Gabapentin (Gabapentin 400 Mg Capsule) 800 mg PO TID [facility] Last Admin: 04/16/25 08:35 Dose: 800 mg Glucose (Glucose Gel 15 Gm Gel..Gram.) 15 gm PO Q15M PRN; Protocol PRN Reason: per Hypoglycemia Standing Ord. Hydroxyzine HCl (Hydroxyzine Hcl 25 Mg Tablet) 25 mg PO Q6H PRN PRN Reason: mild anxiety Last Admin: 04/15/25 22:19 Dose: 25 mg Insulin Human Lispro (Insulin Lispro 100 Unit/Ml 3 Ml Vial) 0 unit SUBCUT QIDACHS [facility]; Protocol Last Admin: 04/16/25 08:04 Dose: 4 unit Ketotifen Fumarate (Ketotifen Fumarate 0.025% Oph 5 Ml Drpbtl) 1 drop EYE-BOTH BID [facility] Last Admin: 04/16/25 08:45 Dose: Not Given Lidocaine (Lidocaine 4 % Patch Adh..Patch) 2 patch TRANSDERMA DAILY [facility]; Protocol Last Admin: 04/16/25 08:42 Dose: 2 patch Lisinopril (Lisinopril 20 Mg Tablet) 20 mg PO DAILY [facility]; Protocol Last Admin: 04/16/25 08:34 Dose: 20 mg Magnesium Hydroxide (Milk Of Magnesia 30 Ml Oral.Susp) 30 ml PO DAILY PRN PRN Reason: Constipation Methadone HCl (Methadone Hcl 20 Mg/2 Ml Oral.Conc) 30 mg PO BEDTIME [facility] Last Admin: 04/15/25 22:18 Dose: 30 mg Methadone HCl (Methadone Hcl 20 Mg/2 Ml Oral.Conc) 20 mg PO DAILY@1430 [facility] Last Admin: 04/15/25 15:07 Dose: 20 mg Nicotine (Nicotine 21 Mg Patch.Td24) 21 mg TRANSDERMA DAILY PRN PRN Reason: nicotine craving Nicotine Polacrilex (Nicotine Polacrilex 2 Mg Gum) 2 mg BUCCAL Q2H PRN PRN Reason: Nicotine Cravings Olanzapine (Olanzapine 5 Mg Tablet) 5 mg PO BID PRN PRN Reason: agitation Omeprazole (Omeprazole 20 Mg Capsule.Dr) 20 mg PO DAILY@0630 [facility] Last Admin: 04/16/25 06:16 Dose: 20 mg Promethazine HCl (Promethazine Hcl 25 Mg Tablet) 25 mg PO Q8H PRN PRN Reason: Nausea Last Admin: 04/15/25 22:19 Dose: 25 mg Sitagliptin Phosphate (Sitagliptin Phosphate 25 Mg Tablet) 25 mg PO DAILY [facility] Last Admin: 04/16/25 08:35 Dose: 25 mg Tizanidine HCl (Tizanidine Hcl 4 Mg Tablet) 4 mg PO Q8H PRN PRN Reason: Muscle Spasm Last Admin: 04/15/25 22:18 Dose: 4 mg Trazodone HCl (Trazodone Hcl 50 Mg Tablet) 50 mg PO BEDTIME MRX1 PRN PRN Reason: Insomnia Vitamin D (Cholecalciferol (Vitamin D3) 25 Mcg Tablet) 50 mcg PO DAILY [facility] Last Admin: 04/16/25 08:35 Dose: 50 mcg Allergies Allergies Allergy/AdvReac Type Severity Reaction Status Date / Time No Known Allergies Allergy Verified 04/12/25 17:41 Assessment & Plan Assessment & Plan (1) MDD (major depressive disorder), recurrent severe, without psychosis: Status: Acute Code(s): F33.2 - Major depressive disorder, recurrent severe without psychotic features (2) PTSD (post-traumatic stress disorder): Status: Acute Code(s): F43.10 - Post-traumatic stress disorder, unspecified (3) Opioid use disorder, severe, on maintenance therapy, dependence: Status: Acute Code(s): F11.20 - Opioid dependence, uncomplicated (4) Cocaine use disorder in remission: Status: Acute Code(s): F14.91 - Cocaine use, unspecified, in remission Plan Ms. Reyes is a 64 yo partnered W F with h/o MDD, PTSD, ADHD, OUD on methadone, cocaine use d/o in remission, type II DM, HTN, HLD, CKD, and COPD who self- presented to the [facility] ED due to worsening depression and passive SI. She was transferred to [facility] for safety and stabilization. Pt endorses an extensive h/o trauma and has been grieving the losses of multiple loved ones (all occurred years ago). She is stressed w/ her current housing since she frequently hears sirens and it triggers her PTSD. It's not clear if there have been more acute stressors contributing to her worsening depression, as her thought process is circumstantial and she needed frequent redirection. She sought a voluntary inpatient psychiatric admission due to worsening depression but is stressed about being far from her support system at home. She has a h/o multiple failed antidepressant trials and can't recall all of them. Plan: Admitted to for safety and stabilization Legal status- CV 15 min safety checks Continue current home meds for now. Not currently taking mirtazapine Pt provided consent for me to communicate w/ her outpatient psychiatrist for care coordination. Will reach out tomorrow Medical H&P completed by hospitalist and reviewed by t/w. Input appreciated * Chronic kidney disease stage IIIB -Baseline creatinine 1.7 EGFR 36 -Avoid nephrotoxins * Hypertension/hyperlipidemia -Continue atorvastatin, clonidine, and lisinopril * COPD -Not in acute exacerbation -Not on maintenance meds * Type 2 diabetes -Recent A1c 12.1 - reports that she was on metformin and Mounjaro as an outpatient -Unable to bring in her Mounjaro due to distance of her family -Will start Januvia and insulin sliding scale. -She will need to follow up with the primary care outpatient. -Metformin not restarted due to elevated liver functions * Elevated LFTs -Patient reports her LFTs have been elevated in the past -She currently follows GI outpatient for this. 04/14- Mood is improving w/ milieu therapy. She would like to switch the methadone to split dosing and start to gradually taper it. Agreeable w/ plan to take 20 mg ~2:30 pm and 30 mg at hs (tapering by 3 mg). Will consider a trial of abilify 04/16:Continue current regimen and plans. Ketoconazole shampoo/wants ordered Patient educated on: medication risk/benefits Reason for continued inpatient stay Substantial Risk for: med/psych decompensation Time Spent With Patient Time: Total time managing care of this patient today ____ minutes.
[2025-04-16 11:57] LABS: Glucose, Whole Blood 261 mg/dL (60-115)
[2025-04-16 12:10] VITALS: BP 137/63
[2025-04-16] MEDS: methADONE HCl 20 MG/2 ML ORAL.CONC PO (14:09)
[2025-04-16 16:42] LABS: Glucose, Whole Blood 312 mg/dL (60-115)
[2025-04-16 20:10] VITALS: BP 113/63; PULSE 79; RESP 18; TEMP 36.6; O2SAT 94
[2025-04-16 20:53] LABS: Glucose, Whole Blood 300 mg/dL (60-115)
[2025-04-16 21:04] VITALS: BP 113/63
[2025-04-16] MEDS: Ketotifen Fumarate 0.025% Oph 5 ML DRPBTL 1 DROP EYE-BOTH (21:06)
--- NOTE | 2025-04-16 21:08 | PM.EVENT ---
Event Note Date of Service: 04/16/25 Event Note: Hospitalist consult placed for diabetes management. Patient is on sliding scale insulin with sitagliptin and still having blood sugars in the mid 200s to 300. Hemoglobin A1c 12. Added Lantus 10 units nightly and continue sliding scale insulin and januvia. Day team to f/u tomorrow. discussed plan with Dr Li Time Spent With Patient Time: Total time managing care of this patient today ____ minutes.
[2025-04-16] MEDS: methADONE HCl 20 MG/2 ML ORAL.CONC 30 MG PO (21:15)
[2025-04-16] MEDS: Insulin Glargine,Hum.rec.anlog 100 UNIT/ML 10 ML VIAL 10 UNIT SUBCUT (21:23)
[2025-04-17 07:47] LABS: Glucose, Whole Blood 210 mg/dL (60-115)
[2025-04-17 08:32] VITALS: BP 105/55; PULSE 63; RESP 14; TEMP 36.2; O2SAT 92
[2025-04-17] MEDS: Ketotifen Fumarate 0.025% Oph 5 ML DRPBTL 1 DROP EYE-BOTH (08:40)
--- NOTE | 2025-04-17 10:41 | P.PNPSI_ITS ---
Subjective Subjective Date of Service: 04/17/25 Reason For Visit: Major Depressve dsorder Subjective Notes: Conditional Voluntary Interim History: Patient was seen and discussed in rounds today. Records and plans were reviewed. She has been stable and is doing better. She is starting using the Medicaid shampoo. Her blood sugars have been running moderately high and last night hospitalist put her on Lantus 10 mg. She has been visible, some lability. No SI. No changes were made today Review of Systems Review of Systems Yes all other systems are reviewed and are negative Mental Status Exam Mental Status Exam Narrative: In today's visit she is alert, oriented and pleasant. Normal speech. Good eye contact. Affect is appropriate and varied. No acute signs of psychosis. No AVH. No delusions. Cognitively intact. No SI. Judgment is intact Diagnostics Vital Signs (24Hr): Vital Signs - 24 hr 04/16/25 12:10 04/16/25 20:10 04/16/25 21:04 Temperature 97.9 F Pulse Rate 79 Respiratory Rate 18 Blood Pressure 137/63 113/63 113/63 Pulse Oximetry 94 Oxygen Delivery Method Room Air 04/17/25 08:32 Temperature 97.2 F Pulse Rate 63 Respiratory Rate 14 Blood Pressure 105/55 L Pulse Oximetry 92 Oxygen Delivery Method Room Air BMI result Body Mass Index 43.7 Labs 04/13/25 07:33 Labs: Laboratory Results - last 48 hr 04/15/25 04/15/25 04/15/25 11:53 16:55 20:56 POC Glucose 223 H 274 H 237 H 04/16/25 04/16/25 04/16/25 07:46 11:53 16:38 POC Glucose 211 H 261 H 312 H 04/16/25 04/17/25 20:49 07:41 POC Glucose 300 H 210 H Medications Medications Current Medications Acetaminophen (Acetaminophen 325 Mg Tablet) 650 mg PO Q6H PRN PRN Reason: Headache/Pain, Scale 1-10 Al Hydroxide/Mg Hydroxide (Magnesium Hydrox/Alum Hydrox 30 Ml Oral.Susp) 30 ml PO Q6H PRN PRN Reason: Heartburn/Nausea Last Admin: 04/13/25 20:20 Dose: 30 ml Aripiprazole (Aripiprazole 2 Mg Tablet) 2 mg PO DAILY [facility] Last Admin: 04/17/25 08:39 Dose: 2 mg Atorvastatin Calcium (Atorvastatin Calcium 80 Mg Tablet) 80 mg PO DAILY [facility] Last Admin: 04/17/25 08:44 Dose: 80 mg Clonidine HCl (Clonidine Hcl 0.1 Mg Tablet) 0.1 mg PO DAILY PRN; Protocol PRN Reason: Anxiety Last Admin: 04/16/25 12:10 Dose: 0.1 mg Clonidine HCl (Clonidine Hcl 0.1 Mg Tablet) 0.1 mg PO DAILY [facility]; Protocol Last Admin: 04/17/25 08:44 Dose: 0.1 mg Clonidine HCl (Clonidine Hcl 0.2 Mg Tablet) 0.2 mg PO BEDTIME [facility]; Protocol Last Admin: 04/16/25 21:04 Dose: 0.2 mg Dextrose (Dextrose 50 % 25 Gm/50 Ml Syringe) 25 gm IVPUSH Q15M PRN; Protocol PRN Reason: per Hypoglycemia Standing Ord. Famotidine (Famotidine 20 Mg Tablet) 40 mg PO DAILY [facility] Last Admin: 04/17/25 08:45 Dose: 40 mg Gabapentin (Gabapentin 400 Mg Capsule) 800 mg PO TID [facility] Last Admin: 04/17/25 08:43 Dose: 800 mg Glucose (Glucose Gel 15 Gm Gel..Gram.) 15 gm PO Q15M PRN; Protocol PRN Reason: per Hypoglycemia Standing Ord. Hydroxyzine HCl (Hydroxyzine Hcl 25 Mg Tablet) 25 mg PO Q6H PRN PRN Reason: mild anxiety Last Admin: 04/17/25 08:39 Dose: 25 mg Insulin Glargine (Insulin Glargine,Hum.Rec.Anlog 100 Unit/Ml 10 Ml Vial) 10 unit SUBCUT BEDTIME [facility] Last Admin: 04/16/25 21:23 Dose: 10 unit Insulin Human Lispro (Insulin Lispro 100 Unit/Ml 3 Ml Vial) 0 unit SUBCUT QIDACHS [facility]; Protocol Last Admin: 04/17/25 08:35 Dose: 4 unit Ketoconazole (Ketoconazole 2 % Shampoo 120 Ml Btl) 1 appl TOPICAL DAILY PRN; Protocol PRN Reason: itching Stop: 04/21/25 08:59 Ketotifen Fumarate (Ketotifen Fumarate 0.025% Oph 5 Ml Drpbtl) 1 drop EYE-BOTH BID [facility] Last Admin: 04/17/25 08:40 Dose: 1 drop Lidocaine (Lidocaine 4 % Patch Adh..Patch) 2 patch TRANSDERMA DAILY [facility]; Protocol Last Admin: 04/17/25 08:47 Dose: Not Given Lisinopril (Lisinopril 20 Mg Tablet) 20 mg PO DAILY [facility]; Protocol Last Admin: 04/17/25 08:40 Dose: 20 mg Magnesium Hydroxide (Milk Of Magnesia 30 Ml Oral.Susp) 30 ml PO DAILY PRN PRN Reason: Constipation Methadone HCl (Methadone Hcl 20 Mg/2 Ml Oral.Conc) 30 mg PO BEDTIME [facility] Last Admin: 04/16/25 21:15 Dose: 30 mg Methadone HCl (Methadone Hcl 20 Mg/2 Ml Oral.Conc) 20 mg PO DAILY@1430 [facility] Last Admin: 04/16/25 14:09 Dose: 20 mg Nicotine (Nicotine 21 Mg Patch.Td24) 21 mg TRANSDERMA DAILY PRN PRN Reason: nicotine craving Nicotine Polacrilex (Nicotine Polacrilex 2 Mg Gum) 2 mg BUCCAL Q2H PRN PRN Reason: Nicotine Cravings Olanzapine (Olanzapine 5 Mg Tablet) 5 mg PO BID PRN PRN Reason: agitation Omeprazole (Omeprazole 20 Mg Capsule.Dr) 20 mg PO DAILY@0630 [facility] Last Admin: 04/17/25 06:32 Dose: 20 mg Promethazine HCl (Promethazine Hcl 25 Mg Tablet) 25 mg PO Q8H PRN PRN Reason: Nausea Last Admin: 04/16/25 21:04 Dose: 25 mg Sitagliptin Phosphate (Sitagliptin Phosphate 25 Mg Tablet) 25 mg PO DAILY [facility] Last Admin: 04/17/25 08:39 Dose: 25 mg Tizanidine HCl (Tizanidine Hcl 4 Mg Tablet) 4 mg PO Q8H PRN PRN Reason: Muscle Spasm Last Admin: 04/16/25 21:03 Dose: 4 mg Trazodone HCl (Trazodone Hcl 50 Mg Tablet) 50 mg PO BEDTIME MRX1 PRN PRN Reason: Insomnia Vitamin D (Cholecalciferol (Vitamin D3) 25 Mcg Tablet) 50 mcg PO DAILY [facility] Last Admin: 04/17/25 08:44 Dose: 50 mcg Allergies Allergies Allergy/AdvReac Type Severity Reaction Status Date / Time No Known Allergies Allergy Verified 04/12/25 17:41 Assessment & Plan Assessment & Plan (1) MDD (major depressive disorder), recurrent severe, without psychosis: Status: Acute Code(s): F33.2 - Major depressive disorder, recurrent severe without psychotic features (2) PTSD (post-traumatic stress disorder): Status: Acute Code(s): F43.10 - Post-traumatic stress disorder, unspecified (3) Opioid use disorder, severe, on maintenance therapy, dependence: Status: Acute Code(s): F11.20 - Opioid dependence, uncomplicated (4) Cocaine use disorder in remission: Status: Acute Code(s): F14.91 - Cocaine use, unspecified, in remission Plan Ms. Reyes is a 64 yo partnered W F with h/o MDD, PTSD, ADHD, OUD on methadone, cocaine use d/o in remission, type II DM, HTN, HLD, CKD, and COPD who self- presented to the [facility] ED due to worsening depression and passive SI. She was transferred to [facility] for safety and stabilization. Pt endorses an extensive h/o trauma and has been grieving the losses of multiple loved ones (all occurred years ago). She is stressed w/ her current housing since she frequently hears sirens and it triggers her PTSD. It's not clear if there have been more acute stressors contributing to her worsening depression, as her thought process is circumstantial and she needed frequent redirection. She sought a voluntary inpatient psychiatric admission due to worsening depression but is stressed about being far from her support system at home. She has a h/o multiple failed antidepressant trials and can't recall all of them. Plan: Admitted to for safety and stabilization Legal status- CV 15 min safety checks Continue current home meds for now. Not currently taking mirtazapine Pt provided consent for me to communicate w/ her outpatient psychiatrist for care coordination. Will reach out tomorrow Medical H&P completed by hospitalist and reviewed by t/w. Input appreciated * Chronic kidney disease stage IIIB -Baseline creatinine 1.7 EGFR 36 -Avoid nephrotoxins * Hypertension/hyperlipidemia -Continue atorvastatin, clonidine, and lisinopril * COPD -Not in acute exacerbation -Not on maintenance meds * Type 2 diabetes -Recent A1c 12.1 - reports that she was on metformin and Mounjaro as an outpatient -Unable to bring in her Mounjaro due to distance of her family -Will start Januvia and insulin sliding scale. -She will need to follow up with the primary care outpatient. -Metformin not restarted due to elevated liver functions * Elevated LFTs -Patient reports her LFTs have been elevated in the past -She currently follows GI outpatient for this. 04/14- Mood is improving w/ milieu therapy. She would like to switch the methadone to split dosing and start to gradually taper it. Agreeable w/ plan to take 20 mg ~2:30 pm and 30 mg at hs (tapering by 3 mg). Will consider a trial of abilify 04/16:Continue current regimen and plans. Ketoconazole shampoo/wants ordered 04/17:Continue current regimen and plans Reason for continued inpatient stay Substantial Risk for: med/psych decompensation Time Spent With Patient Time: Total time managing care of this patient today ____ minutes.
[2025-04-17 12:02] LABS: Glucose, Whole Blood 267 mg/dL (60-115)
[2025-04-17] MEDS: Ketoconazole 2 % Shampoo 120 ML BTL 1 APPL TOPICAL (13:34)
[2025-04-17] MEDS: methADONE HCl 20 MG/2 ML ORAL.CONC PO (14:44)
[2025-04-17 14:47] VITALS: BP 107/58
[2025-04-17 16:47] LABS: Glucose, Whole Blood 211 mg/dL (60-115)
[2025-04-17 20:00] VITALS: BP 107/60; PULSE 82; RESP 16; TEMP 36.1; O2SAT 96
[2025-04-17 20:23] LABS: Glucose, Whole Blood 236 mg/dL (60-115)
[2025-04-17] MEDS: methADONE HCl 20 MG/2 ML ORAL.CONC 30 MG PO (20:23)
[2025-04-17] MEDS: Insulin Glargine,Hum.rec.anlog 100 UNIT/ML 10 ML VIAL 10 UNIT SUBCUT (20:32)
[2025-04-18 07:45] LABS: Glucose, Whole Blood 196 mg/dL (60-115)
[2025-04-18 08:00] VITALS: BP 109/55; PULSE 74; RESP 20; TEMP 36.2; O2SAT 96
[2025-04-18] MEDS: Lidocaine 4 % Patch ADH..PATCH 2 PATCH TRANSDERMA (08:45)
[2025-04-18] MEDS: Milk of Magnesia 30 ML ORAL.SUSP PO (09:03)
[2025-04-18 11:56] LABS: Glucose, Whole Blood 239 mg/dL (60-115)
[2025-04-18] MEDS: methADONE HCl 20 MG/2 ML ORAL.CONC PO (14:36)
[2025-04-18 14:47] VITALS: BP 123/75; PULSE 95
--- NOTE | 2025-04-18 14:49 | PM.EVENT ---
Event Note Date of Service: 04/18/25 Event Note: Patient seen for follow up diabetes, her blood sugars slowly improving she was started on 10 units of Lantus, we will increase to 15 and continue to monitor. Time Spent With Patient Time: Total time managing care of this patient today ____ minutes.
[2025-04-18 16:56] LABS: Glucose, Whole Blood 241 mg/dL (60-115)
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
[2025-04-18 20:34] LABS: Glucose, Whole Blood 301 mg/dL (60-115)
[2025-04-18] MEDS: methADONE HCl 20 MG/2 ML ORAL.CONC 27 MG PO (21:24)
[2025-04-18] MEDS: Insulin Glargine,Hum.rec.anlog 100 UNIT/ML 10 ML VIAL 15 UNIT SUBCUT (21:30)
[2025-04-18 22:38] VITALS: BP 109/65; PULSE 86; RESP 16; TEMP 36.3; O2SAT 93
[2025-04-18] MEDS: Ketotifen Fumarate 0.025% Oph 5 ML DRPBTL 1 DROP EYE-BOTH (22:45)
[2025-04-19 07:50] LABS: Glucose, Whole Blood 185 mg/dL (60-115)
[2025-04-19 08:00] VITALS: BP 109/68; PULSE 86; RESP 16; TEMP 36.2; O2SAT 97
[2025-04-19] MEDS: Lidocaine 4 % Patch ADH..PATCH 2 PATCH TRANSDERMA (11:36)
[2025-04-19 11:50] LABS: Glucose, Whole Blood 316 mg/dL (60-115)
[2025-04-19] MEDS: methADONE HCl 20 MG/2 ML ORAL.CONC PO (14:16)
[2025-04-19 14:25] VITALS: BP 102/64
[2025-04-19 16:56] LABS: Glucose, Whole Blood 221 mg/dL (60-115)
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
[2025-04-19] MEDS: methADONE HCl 20 MG/2 ML ORAL.CONC 27 MG PO (21:45)
[2025-04-19 22:01] LABS: Glucose, Whole Blood 247 mg/dL (60-115)
[2025-04-19] MEDS: Insulin Glargine,Hum.rec.anlog 100 UNIT/ML 10 ML VIAL 15 UNIT SUBCUT (22:16)
[2025-04-19] MEDS: Ketotifen Fumarate 0.025% Oph 5 ML DRPBTL 1 DROP EYE-BOTH (22:18)
[2025-04-19 22:20] VITALS: BP 136/71; PULSE 84; RESP 18; TEMP 36.6; O2SAT 96
[2025-04-20 07:44] LABS: Glucose, Whole Blood 166 mg/dL (60-115)
[2025-04-20 08:00] VITALS: BP 123/65; PULSE 81; RESP 16; TEMP 36.3; O2SAT 98
[2025-04-20 08:14] VITALS: BP 123/65
[2025-04-20 08:16] VITALS: BP 123/65
--- NOTE | 2025-04-20 09:58 | HO.PSYCHPN ---
Subjective Subjective Date of Service: 04/20/25 Reason For Visit: Major Depressve dsorder Subjective Notes: Conditional Voluntary Healthcare Proxy: No Guardianship: No Medical Problems Affecting Mental Status: No Interim History: Medical record and nursing notes reviewed; case discussed during rounds with team/nursing staff, and met with patient for supportive therapy/psychoeducation, as well as medication management. Patient is anxious but pleasant and cooperative. Medication compliant. Denies side effects except for dry mouth and constipation. Report no BM x more than 3 days. Agree with Mag Citrate: pending effects. Artificial saliva PRN ordered. Patient also requests her MTD to scheduled at 1200 and 2000 as when she was offered HS too late at night. She could not sleep and was awaken up early for VSs and POC. Therefore, she reports that she did nto get enough sleep Report that her anxiety is better now as she knows that she is discharged on Friday to [facility] in [place], [place]. Continue to express that she wants to taper down and off from MTD. SHe has been clean for 5 years and she feels she can come off MTD without using. Denies SI/SIB/HI/AVH. Also apologize to this provider for her irritability on admission. Patient also reports she is cutting down on sugar intake and tries to be healthier. Per nursing, patient has so many requests, goes back in 4 with scheduled time for methadone, can be irritable, but medication compliant. Future focused, pleasant and cooperative. Social, visible, and attended groups. Continue with current treatment plan. Monitor for bowel movement. Medication Compliance: Yes Side effects from medications: No Review of Systems Acute medical concerns: No Medical Review of Systems: unchanged Review of Systems Review of Systems Constitutional: Denies fatigue and Denies fever(s) Cardiovascular: Denies chest pain and Denies dyspnea Respiratory: Denies dyspnea Gastrointestinal: Denies abdominal pain. However, constipated Psychiatric: denies suicidal ideation Endocrine: Denies fatigue Yes all other systems are reviewed and are negative Mental Status Exam Mental Status Exam Narrative: Appearance: Casually dressed. She has a brown clip on bun over camilo hair. Good eye contact. No changes. Attitude: pleasant and cooperative. Can be irritable. Speech: Excessive, requires redirection. otherwise wnl Motor activity: Calm and without any tics, tremors or dyskinesias. antalgic gait- attributes to deconditioning and being overweight Mood: anxious, depressed but improving Affect: appropriate, reactive, brightens up appropriately Thought process: logical. Thought content: No SI/SIB/HI Perception: does not appear to respond to internal stimuli. Denies AVH. Alert/oriented in all spheres Cognition grossly intact Insight: intact Judgment: intact Diagnostics Vital Signs (24Hr): Vital Signs - 24 hr 04/19/25 14:25 04/19/25 22:20 04/20/25 08:14 Temperature 97.9 F Pulse Rate 84 Respiratory Rate 18 Blood Pressure 102/64 136/71 123/65 Pulse Oximetry 96 Oxygen Delivery Method Room Air 04/20/25 08:16 Temperature Pulse Rate Respiratory Rate Blood Pressure 123/65 Pulse Oximetry Oxygen Delivery Method BMI result Body Mass Index 43.7 Labs 04/13/25 07:33 Labs: Laboratory Results - last 48 hr 04/18/25 04/18/25 04/18/25 11:52 16:51 20:26 POC Glucose 239 H 241 H 301 H 04/19/25 04/19/25 04/19/25 07:45 11:40 16:51 POC Glucose 185 H 316 H 221 H 04/19/25 04/20/25 21:56 07:37 POC Glucose 247 H 166 H Medications Medications Current Medications Acetaminophen (Acetaminophen 325 Mg Tablet) 650 mg PO Q6H PRN PRN Reason: Headache/Pain, Scale 1-10 Al Hydroxide/Mg Hydroxide (Magnesium Hydrox/Alum Hydrox 30 Ml Oral.Susp) 30 ml PO Q6H PRN PRN Reason: Heartburn/Nausea Last Admin: 04/13/25 20:20 Dose: 30 ml Atorvastatin Calcium (Atorvastatin Calcium 80 Mg Tablet) 80 mg PO DAILY ZAN Last Admin: 04/20/25 08:16 Dose: 80 mg Clonidine HCl (Clonidine Hcl 0.1 Mg Tablet) 0.1 mg PO DAILY PRN; Protocol PRN Reason: Anxiety Last Admin: 04/19/25 14:25 Dose: 0.1 mg Clonidine HCl (Clonidine Hcl 0.1 Mg Tablet) 0.1 mg PO DAILY ZAN; Protocol Last Admin: 04/20/25 08:14 Dose: 0.1 mg Clonidine HCl (Clonidine Hcl 0.2 Mg Tablet) 0.2 mg PO BEDTIME ZAN; Protocol Last Admin: 04/19/25 22:23 Dose: 0.2 mg Dextrose (Dextrose 50 % 25 Gm/50 Ml Syringe) 25 gm IVPUSH Q15M PRN; Protocol PRN Reason: per Hypoglycemia Standing Ord. Docusate Sodium (Docusate Sodium 100 Mg Capsule) 100 mg PO BID FOR[facility]LY [facility], [facility] Last Admin: 04/20/25 08:16 Dose: 100 mg Famotidine (Famotidine 20 Mg Tablet) 40 mg PO DAILY [facility], [facility] Last Admin: 04/20/25 08:15 Dose: 40 mg Gabapentin (Gabapentin 400 Mg Capsule) 800 mg PO TID [facility], [facility] Last Admin: 04/20/25 08:14 Dose: 800 mg Glucose (Glucose Gel 15 Gm Gel..Gram.) 15 gm PO Q15M PRN; Protocol PRN Reason: per Hypoglycemia Standing Ord. Hydroxyzine HCl (Hydroxyzine Hcl 25 Mg Tablet) 25 mg PO Q6H PRN PRN Reason: mild anxiety Last Admin: 04/19/25 22:19 Dose: 25 mg Insulin Glargine (Insulin Glargine,Hum.Rec.Anlog 100 Unit/Ml 10 Ml Vial) 15 unit SUBCUT BEDTIME [facility]LY [facility], [facility] Last Admin: 04/19/25 22:16 Dose: 15 unit Insulin Human Lispro (Insulin Lispro 100 Unit/Ml 3 Ml Vial) 0 unit SUBCUT QIDACHS [facility]LY [facility], [facility]; Protocol Last Admin: 04/20/25 08:09 Dose: 2 unit Ketoconazole (Ketoconazole 2 % Shampoo 120 Ml Btl) 1 appl TOPICAL DAILY PRN; Protocol PRN Reason: itching Stop: 04/21/25 08:59 Last Admin: 04/17/25 13:34 Dose: 1 appl Ketotifen Fumarate (Ketotifen Fumarate 0.025% Oph 5 Ml Drpbtl) 1 drop EYE-BOTH BEDTIME [facility], [facility] Last Admin: 04/19/25 22:18 Dose: 1 drop Lidocaine (Lidocaine 4 % Patch Adh..Patch) 2 patch TRANSDERMA DAILY [facility], [facility]; Protocol Last Admin: 04/19/25 11:36 Dose: 2 patch Lisinopril (Lisinopril 20 Mg Tablet) 20 mg PO DAILY [facility], [facility]; Protocol Last Admin: 04/20/25 08:16 Dose: 20 mg Magnesium Hydroxide (Milk Of Magnesia 30 Ml Oral.Susp) 30 ml PO DAILY PRN PRN Reason: Constipation Last Admin: 04/18/25 09:03 Dose: 30 ml Methadone HCl (Methadone Hcl 20 Mg/2 Ml Oral.Conc) 20 mg PO DAILY@1430 [facility], [facility] Last Admin: 04/19/25 14:16 Dose: 20 mg Methadone HCl (Methadone Hcl 20 Mg/2 Ml Oral.Conc) 27 mg PO BEDTIME [facility], [facility] Last Admin: 04/19/25 21:45 Dose: 27 mg Nicotine (Nicotine 21 Mg Patch.Td24) 21 mg TRANSDERMA DAILY PRN PRN Reason: nicotine craving Nicotine Polacrilex (Nicotine Polacrilex 2 Mg Gum) 2 mg BUCCAL Q2H PRN PRN Reason: Nicotine Cravings Olanzapine (Olanzapine 5 Mg Tablet) 5 mg PO BID PRN PRN Reason: agitation Omeprazole (Omeprazole 20 Mg Capsule.Dr) 20 mg PO DAILY@0630 [facility], [facility] Last Admin: 04/20/25 08:11 Dose: 20 mg Promethazine HCl (Promethazine Hcl 25 Mg Tablet) 25 mg PO Q8H PRN PRN Reason: Nausea Last Admin: 04/19/25 22:19 Dose: 25 mg Senna (Sennosides 8.6 Mg Tablet) 8.6 mg PO BID [facility], [facility] Last Admin: 04/20/25 08:16 Dose: 8.6 mg Sitagliptin Phosphate (Sitagliptin Phosphate 25 Mg Tablet) 25 mg PO DAILY [facility] Last Admin: 04/20/25 08:16 Dose: 25 mg Tizanidine HCl (Tizanidine Hcl 4 Mg Tablet) 4 mg PO Q8H PRN PRN Reason: Muscle Spasm Last Admin: 04/19/25 22:19 Dose: 4 mg Trazodone HCl (Trazodone Hcl 50 Mg Tablet) 50 mg PO BEDTIME MRX1 PRN PRN Reason: Insomnia Vitamin D (Cholecalciferol (Vitamin D3) 25 Mcg Tablet) 50 mcg PO DAILY [facility], [facility] Last Admin: 04/20/25 08:15 Dose: 50 mcg Allergies Allergies Allergy/AdvReac Type Severity Reaction Status Date / Time No Known Allergies Allergy Verified 04/12/25 17:41 Assessment & Plan Assessment & Plan (1) MDD (major depressive disorder), recurrent severe, without psychosis: Status: Acute Code(s): F33.2 - Major depressive disorder, recurrent severe without psychotic features (2) PTSD (post-traumatic stress disorder): Status: Acute Code(s): F43.10 - Post-traumatic stress disorder, unspecified (3) Opioid use disorder, severe, on maintenance therapy, dependence: Status: Acute Code(s): F11.20 - Opioid dependence, uncomplicated (4) Cocaine use disorder in remission: Status: Acute Code(s): F14.91 - Cocaine use, unspecified, in remission Plan Ms. Reyes is a 64 yo partnered W F with h/o MDD, PTSD, ADHD, OUD on methadone, cocaine use d/o in remission, type II DM, HTN, HLD, CKD, and COPD who self-presented to the [facility] ED due to worsening depression and passive SI. She was transferred to [facility] for safety and stabilization. Pt endorses an extensive h/o trauma and has been grieving the losses of multiple loved ones (all occurred years ago). She is stressed w/ her current housing since she frequently hears sirens and it triggers her PTSD. It's not clear if there have been more acute stressors contributing to her worsening depression, as her thought process is circumstantial and she needed frequent redirection. She sought a voluntary inpatient psychiatric admission due to worsening depression but is stressed about being far from her support system at home. She has a h/o multiple failed antidepressant trials and can't recall all of them. Plan: Admitted to for safety and stabilization Legal status- CV 15 min safety checks Continue current home meds for now. Not currently taking mirtazapine Pt provided consent for me to communicate w/ her outpatient psychiatrist for care coordination. Will reach out tomorrow Medical H&P completed by hospitalist and reviewed by t/w. Input appreciated Chronic kidney disease stage IIIB -Baseline creatinine 1.7 EGFR 36 -Avoid nephrotoxins Hypertension/hyperlipidemia -Continue atorvastatin, clonidine, and lisinopril COPD -Not in acute exacerbation -Not on maintenance meds Type 2 diabetes -Recent A1c 12.1 - reports that she was on metformin and Mounjaro as an outpatient -Unable to bring in her Mounjaro due to distance of her family -Will start Januvia and insulin sliding scale. -She will need to follow up with the primary care outpatient. -Metformin not restarted due to elevated liver functions Elevated LFTs -Patient reports her LFTs have been elevated in the past -She currently follows GI outpatient for this. 04/14- Mood is improving w/ milieu therapy. She would like to switch the methadone to split dosing and start to gradually taper it. Agreeable w/ plan to take 20 mg ~2:30 pm and 30 mg at hs (tapering by 3 mg). Will consider a trial of abilify 04/16:Continue current regimen and plans. Ketoconazole shampoo/wants ordered 04/17:Continue current regimen and plans 04/18: D/C'd ABilify per pt request due to sweating/jitteriness. Prefers to defer adding any new meds for now, plans to pursue TMS as an outpatient. She is benefitting from milieu therapy- interacting w/ staff/peers, leaving her room (unable to do this at home). Per pt request- will taper methadone tonight by 3 mg. New dosing- 20 mg in afternoon + 27 mg at hs. Ordered prn senna and colace, which she takes at home. D/C planning- likely on 04/20. 04/20/25: Patient is anxious but pleasant and cooperative. Medication compliant. Denies side effects except for dry mouth and constipation. Report no BM x more than 3 days. Agree with Mag Citrate: pending effects. Artificial saliva PRN ordered. Patient also requests her MTD to scheduled at 1199 and 1999 as when she was offered HS too late at night. She could not sleep and was awaken up early for VSs and POC. Therefore, she reports that she did nto get enough sleep Report that her anxiety is better now as she knows that she is discharged on Friday to [facility] in [place], [place]. Continue to express that she wants to taper down and off from MTD. SHe has been clean for 5 years and she feels she can come off MTD without using. Denies SI/SIB/HI/AVH. Also apologize to this provider for her irritability on admission. Patient also reports she is cutting down on sugar intake and tries to be healthier. Per nursing, patient has so many requests, goes back in 4 with scheduled time for methadone, can be irritable, but medication compliant. Future focused, pleasant and cooperative. Social, visible, and attended groups. Continue with current treatment plan. Monitor for bowel movement. Mag citrate 300mg X1 severe constipation Dry Mouth spay PRN. Change MTD schedule time 1200 and 1999. Tentative discharge on Friday04/25/25 to [facility]. Patient educated on: diagnosis, medication risk/benefits and therapeutic strategies Informed Consent: understands and further education needed Reason for continued inpatient stay Substantial Risk for: med/psych decompensation Time Spent With Patient Time: Total time managing care of this patient today ____ minutes.
[2025-04-20] MEDS: Lidocaine 4 % Patch ADH..PATCH 2 PATCH TRANSDERMA (11:06)
[2025-04-20 11:50] LABS: Glucose, Whole Blood 214 mg/dL (60-115)
[2025-04-20] MEDS: methADONE HCl 20 MG/2 ML ORAL.CONC PO (13:06)
[2025-04-20 13:10] VITALS: BP 142/80
[2025-04-20 17:08] LABS: Glucose, Whole Blood 231 mg/dL (60-115)
[2025-04-20 20:00] VITALS: BP 111/70; PULSE 84; RESP 16; TEMP 36.6; O2SAT 95
[2025-04-20 20:16] LABS: Glucose, Whole Blood 208 mg/dL (60-115)
[2025-04-20] MEDS: Insulin Glargine,Hum.rec.anlog 100 UNIT/ML 10 ML VIAL 15 UNIT SUBCUT (20:33)
[2025-04-20] MEDS: methADONE HCl 20 MG/2 ML ORAL.CONC 27 MG PO (20:43)
[2025-04-20] MEDS: Ketotifen Fumarate 0.025% Oph 5 ML DRPBTL 1 DROP EYE-BOTH (20:44)
[2025-04-21 07:00] VITALS: BMI 43.4
[2025-04-21 08:09] LABS: Glucose, Whole Blood 204 mg/dL (60-115)
--- NOTE | 2025-04-21 08:23 | HO.PSYCHPN ---
Subjective Subjective Date of Service: 04/21/25 Reason For Visit: Major Depressve dsorder Subjective Notes: Conditional Voluntary Interim History: Pt reports sleeping well. She reports she is feeling better, less depressed. She continues to denied SI/HI. She is looking forward to step down to [facility]. 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 She had trial of abilify but was shaky. At this point, she declines further med trials. She had reported constipation, which is chronic due to methadone. we discussed schedule bowel regimen to prevent this. She reported mag citrate worked. No behavioral concerns. will repeat LFT as they were elevated on admission to check if trending down or stable. Medication Compliance: Yes Mental Status Exam Mental Status Exam Narrative: Appearance: wearing hospital gown, fair hygiene, in NAD Behavior: cooperative Psychomotor: no agitation or retardation notes Speech: clear, normal rate/rhythm/volume, spontaneous TP: linear TC: feeling better, looking forward to go to [facility] Mood: better Affect: congruent SI: denies HI: none VH/AH: none Delusions: none Insight/judgment: fair x 2. Memory/cog: alert, oriented x 3. grossly intact to conversational testing. Diagnostics Vital Signs (24Hr): Vital Signs - 24 hr 04/20/25 13:10 04/20/25 20:00 Temperature 97.8 F Pulse Rate 84 Respiratory Rate 16 Blood Pressure 142/80 H 111/70 Pulse Oximetry 95 Oxygen Delivery Method Room Air BMI result Body Mass Index 43.7 Labs 04/21/25 12:11 Labs: Laboratory Results - last 48 hr 04/19/25 04/19/25 04/19/25 11:40 16:51 21:56 POC Glucose 316 H 221 H 247 H 04/20/25 04/20/25 04/20/25 07:37 11:45 16:30 POC Glucose 166 H 214 H 231 H 04/20/25 04/21/25 20:05 07:58 POC Glucose 208 H 204 H Medications Medications Current Medications Acetaminophen (Acetaminophen 325 Mg Tablet) 650 mg PO Q6H PRN PRN Reason: Headache/Pain, Scale 1-10 Al Hydroxide/Mg Hydroxide (Magnesium Hydrox/Alum Hydrox 30 Ml Oral.Susp) 30 ml PO Q6H PRN PRN Reason: Heartburn/Nausea Last Admin: 04/13/25 20:20 Dose: 30 ml Atorvastatin Calcium (Atorvastatin Calcium 80 Mg Tablet) 80 mg PO DAILY ON LICENSE OF [facility] Last Admin: 04/20/25 08:16 Dose: 80 mg Clonidine HCl (Clonidine Hcl 0.1 Mg Tablet) 0.1 mg PO DAILY PRN; Protocol PRN Reason: Anxiety Last Admin: 04/20/25 13:10 Dose: 0.1 mg Clonidine HCl (Clonidine Hcl 0.1 Mg Tablet) 0.1 mg PO DAILY ZAN; Protocol Last Admin: 04/20/25 08:14 Dose: 0.1 mg Clonidine HCl (Clonidine Hcl 0.2 Mg Tablet) 0.2 mg PO BEDTIME ZAN; Protocol Last Admin: 04/20/25 20:32 Dose: 0.2 mg Dextrose (Dextrose 50 % 25 Gm/50 Ml Syringe) 25 gm IVPUSH Q15M PRN; Protocol PRN Reason: per Hypoglycemia Standing Ord. Docusate Sodium (Docusate Sodium 100 Mg Capsule) 100 mg PO BID ZAN Last Admin: 04/20/25 20:32 Dose: 100 mg Famotidine (Famotidine 20 Mg Tablet) 40 mg PO DAILY ZAN Last Admin: 04/20/25 08:15 Dose: 40 mg Gabapentin (Gabapentin 400 Mg Capsule) 800 mg PO TID ZAN Last Admin: 04/20/25 20:31 Dose: 800 mg Glucose (Glucose Gel 15 Gm Gel..Gram.) 15 gm PO Q15M PRN; Protocol PRN Reason: per Hypoglycemia Standing Ord. Hydroxyzine HCl (Hydroxyzine Hcl 25 Mg Tablet) 25 mg PO Q6H PRN PRN Reason: mild anxiety Last Admin: 04/20/25 21:44 Dose: 25 mg Insulin Glargine (Insulin Glargine,Hum.Rec.Anlog 100 Unit/Ml 10 Ml Vial) 15 unit SUBCUT BEDTIME ON LICENSE OF [facility] Last Admin: 04/20/25 20:33 Dose: 15 unit Insulin Human Lispro (Insulin Lispro 100 Unit/Ml 3 Ml Vial) 0 unit SUBCUT QIDACHS ZAN; Protocol Last Admin: 04/20/25 20:34 Dose: 4 unit Ketoconazole (Ketoconazole 2 % Shampoo 120 Ml Btl) 1 appl TOPICAL DAILY PRN; Protocol PRN Reason: itching Stop: 04/21/25 08:59 Last Admin: 04/17/25 13:34 Dose: 1 appl Ketotifen Fumarate (Ketotifen Fumarate 0.025% Oph 5 Ml Drpbtl) 1 drop EYE-BOTH BEDTIME ON LICENSE OF [facility] Last Admin: 04/20/25 20:44 Dose: 1 drop Lidocaine (Lidocaine 4 % Patch Adh..Patch) 2 patch TRANSDERMA DAILY ON LICENSE OF [facility]; Protocol Last Admin: 04/20/25 11:06 Dose: 2 patch Lisinopril (Lisinopril 20 Mg Tablet) 20 mg PO DAILY ON LICENSE OF [facility]; Protocol Last Admin: 04/20/25 08:16 Dose: 20 mg Magnesium Hydroxide (Milk Of Magnesia 30 Ml Oral.Susp) 30 ml PO DAILY PRN PRN Reason: Constipation Last Admin: 04/18/25 09:03 Dose: 30 ml Methadone HCl (Methadone Hcl 20 Mg/2 Ml Oral.Conc) 20 mg PO DAILY@1200 ON LICENSE OF [facility] Last Admin: 04/20/25 13:06 Dose: 20 mg Methadone HCl (Methadone Hcl 20 Mg/2 Ml Oral.Conc) 27 mg PO DAILY@2000 ON LICENSE OF [facility] Last Admin: 04/20/25 20:43 Dose: 27 mg Nicotine (Nicotine 21 Mg Patch.Td24) 21 mg TRANSDERMA DAILY PRN PRN Reason: nicotine craving Nicotine Polacrilex (Nicotine Polacrilex 2 Mg Gum) 2 mg BUCCAL Q2H PRN PRN Reason: Nicotine Cravings Olanzapine (Olanzapine 5 Mg Tablet) 5 mg PO BID PRN PRN Reason: agitation Omeprazole (Omeprazole 20 Mg Capsule.Dr) 20 mg PO DAILY@0630 ON LICENSE OF [facility] Last Admin: 04/21/25 06:59 Dose: 20 mg Promethazine HCl (Promethazine Hcl 25 Mg Tablet) 25 mg PO Q8H PRN PRN Reason: Nausea Last Admin: 04/20/25 21:40 Dose: 25 mg Saliva Substitute (Dry Mouth [place] 60 Ml [place]) 2 spray MUCOUS MEM Q2H PRN PRN Reason: dry mouth Senna (Sennosides 8.6 Mg Tablet) 8.6 mg PO BID ON LICENSE OF [facility] Last Admin: 04/20/25 20:32 Dose: 8.6 mg Sitagliptin Phosphate (Sitagliptin Phosphate 25 Mg Tablet) 25 mg PO DAILY ON LICENSE OF [facility] Last Admin: 04/20/25 08:16 Dose: 25 mg Tizanidine HCl (Tizanidine Hcl 4 Mg Tablet) 4 mg PO Q8H PRN PRN Reason: Muscle Spasm Last Admin: 04/20/25 21:40 Dose: 4 mg Trazodone HCl (Trazodone Hcl 50 Mg Tablet) 50 mg PO BEDTIME MRX1 PRN PRN Reason: Insomnia Vitamin D (Cholecalciferol (Vitamin D3) 25 Mcg Tablet) 50 mcg PO DAILY ZAN Last Admin: 04/20/25 08:15 Dose: 50 mcg Allergies Allergies Allergy/AdvReac Type Severity Reaction Status Date / Time No Known Allergies Allergy Verified 04/12/25 17:41 Assessment & Plan Assessment & Plan (1) MDD (major depressive disorder), recurrent severe, without psychosis: Status: Acute Code(s): F33.2 - Major depressive disorder, recurrent severe without psychotic features (2) PTSD (post-traumatic stress disorder): Status: Acute Code(s): F43.10 - Post-traumatic stress disorder, unspecified (3) Opioid use disorder, severe, on maintenance therapy, dependence: Status: Acute Code(s): F11.20 - Opioid dependence, uncomplicated (4) Cocaine use disorder in remission: Status: Acute Code(s): F14.91 - Cocaine use, unspecified, in remission Plan Ms. Reyes is a 64 yo partnered W F with h/o MDD, PTSD, ADHD, OUD on methadone, cocaine use d/o in remission, type II DM, HTN, HLD, CKD, and COPD who self-presented to the [facility] ED due to worsening depression and passive SI. She was transferred to [facility] for safety and stabilization. Pt endorses an extensive h/o trauma and has been grieving the losses of multiple loved ones (all occurred years ago). She is stressed w/ her current housing since she frequently hears sirens and it triggers her PTSD. It's not clear if there have been more acute stressors contributing to her worsening depression, as her thought process is circumstantial and she needed frequent redirection. She sought a voluntary inpatient psychiatric admission due to worsening depression but is stressed about being far from her support system at home. She has a h/o multiple failed antidepressant trials and can't recall all of them. Plan: 04/21/2025- continue current medications. No SI/HI. ordered repeat LFT. AST/ALT trending down, total bili wnl. Medical H&P completed by hospitalist and reviewed by t/w. Input appreciated Chronic kidney disease stage IIIB -Baseline creatinine 1.7 EGFR 36 -Avoid nephrotoxins Hypertension/hyperlipidemia -Continue atorvastatin, clonidine, and lisinopril COPD -Not in acute exacerbation -Not on maintenance meds Type 2 diabetes -Recent A1c 12.1 - reports that she was on metformin and Mounjaro as an outpatient -Unable to bring in her Mounjaro due to distance of her family -Will start Januvia and insulin sliding scale. -She will need to follow up with the primary care outpatient. -Metformin not restarted due to elevated liver functions Elevated LFTs -Patient reports her LFTs have been elevated in the past -She currently follows GI outpatient for this. 04/14- Mood is improving w/ milieu therapy. She would like to switch the methadone to split dosing and start to gradually taper it. Agreeable w/ plan to take 20 mg ~2:30 pm and 30 mg at hs (tapering by 3 mg). Will consider a trial of abilify 04/16:Continue current regimen and plans. Ketoconazole shampoo/wants ordered 04/17:Continue current regimen and plans 04/18: D/C'd ABilify per pt request due to sweating/jitteriness. Prefers to defer adding any new meds for now, plans to pursue TMS as an outpatient. She is benefitting from milieu therapy- interacting w/ staff/peers, leaving her room (unable to do this at home). Per pt request- will taper methadone tonight by 3 mg. New dosing- 20 mg in afternoon + 27 mg at hs. Ordered prn senna and colace, which she takes at home. D/C planning- likely on 04/20. 04/20/25: Patient is anxious but pleasant and cooperative. Medication compliant. Denies side effects except for dry mouth and constipation. Report no BM x more than 3 days. Agree with Mag Citrate: pending effects. Artificial saliva PRN ordered. Patient also requests her MTD to scheduled at 1200 and 2000 as when she was offered HS too late at night. She could not sleep and was awaken up early for VSs and POC. Therefore, she reports that she did nto get enough sleep Report that her anxiety is better now as she knows that she is discharged on Friday to [facility] in [place], [place]. Continue to express that she wants to taper down and off from MTD. SHe has been clean for 5 years and she feels she can come off MTD without using. Denies SI/SIB/HI/AVH. Also apologize to this provider for her irritability on admission. Patient also reports she is cutting down on sugar intake and tries to be healthier. Per nursing, patient has so many requests, goes back in 4 with scheduled time for methadone, can be irritable, but medication compliant. Future focused, pleasant and cooperative. Social, visible, and attended groups. Continue with current treatment plan. Monitor for bowel movement. Mag citrate 300mg X1 severe constipation Dry Mouth spay PRN. Change MTD schedule time 1199 and 1999. Tentative discharge on Friday04/25/25 to [facility]. Reason for continued inpatient stay Substantial Risk for: inability to function Time Spent With Patient Time: Total time managing care of this patient today ____ minutes.
[2025-04-21 09:02] VITALS: BP 154/79; PULSE 72; RESP 14; TEMP 36.6; O2SAT 95
[2025-04-21 11:55] LABS: Glucose, Whole Blood 207 mg/dL (60-115)
[2025-04-21] MEDS: methADONE HCl 20 MG/2 ML ORAL.CONC PO (11:55)
[2025-04-21 12:41] LABS: Alanine Aminotransferase 76 U/L (0-31); Albumin Level 4.4 g/dL (3.5-5.0); Alkaline Phosphatase 169 U/L (39-117); Anion Gap 13 (12-20); Aspartate Amino Transferase 78 U/L (5-31); Blood Urea Nitrogen 18 mg/dL (9-16); Calcium 9.6 mg/dL (8.4-10.2); Carbon Dioxide 30 mmol/L (22-29); Chloride 99 mmol/L (96-108); Creatinine Clr Calc Pharmacy 62.3; Estimated Glomerular Filt Rate 49; Potassium 4.5 mmol/L (3.3-5.1); Sodium 137 mmol/L (135-145); Total Protein 7.8 g/dL (6.5-8.0)
[2025-04-21] MEDS: Ketoconazole 2 % Shampoo 120 ML BTL 1 APPL TOPICAL (14:54)
[2025-04-21 16:52] LABS: Glucose, Whole Blood 191 mg/dL (60-115)
[2025-04-21] MEDS: Lidocaine 4 % Patch ADH..PATCH 2 PATCH TRANSDERMA (18:18)
[2025-04-21 20:00] VITALS: BP 112/66; PULSE 103; RESP 16; TEMP 36.4; O2SAT 94
[2025-04-21 20:24] LABS: Glucose, Whole Blood 206 mg/dL (60-115)
[2025-04-21] MEDS: methADONE HCl 20 MG/2 ML ORAL.CONC 27 MG PO (20:31)
[2025-04-21] MEDS: Insulin Glargine,Hum.rec.anlog 100 UNIT/ML 10 ML VIAL 15 UNIT SUBCUT (20:35)
[2025-04-21] MEDS: Ketotifen Fumarate 0.025% Oph 5 ML DRPBTL 1 DROP EYE-BOTH (20:39)
[2025-04-22 07:35] LABS: Glucose, Whole Blood 192 mg/dL (60-115)
[2025-04-22 08:00] VITALS: BP 104/65; PULSE 73; RESP 20; TEMP 36.8; O2SAT 97
[2025-04-22] MEDS: Lidocaine 4 % Patch ADH..PATCH 2 PATCH TRANSDERMA (09:06)
[2025-04-22 12:07] LABS: Glucose, Whole Blood 224 mg/dL (60-115)
[2025-04-22] MEDS: methADONE HCl 20 MG/2 ML ORAL.CONC PO (12:37)
[2025-04-22 16:54] LABS: Glucose, Whole Blood 224 mg/dL (60-115)
--- NOTE | 2025-04-22 17:50 | P.PNPSI_ITS ---
Subjective Subjective Date of Service: 04/22/25 Reason For Visit: Major Depressve dsorder Subjective Notes: Conditional Voluntary Interim History: Chart reviewed. Case discussed w/ team. Pt is grateful that her SW was able to get her into a respite next Friday and for the care that she's received here. She denies SI. Anxiety has improved. Reports good sleep/appetite Visible in milieu Interacting appropriatley w/ peers Medication Compliance: Yes Side effects from medications: No Attending Groups: Yes Mental Status Exam Mental Status Exam Narrative: Appearance: Casually dressed. Good eye contact Attitude: Cooperative Speech: Excessive, requires redirection but is aware of this, improved overall Motor activity: Calm and without any tics, tremors or dyskinesias. Mood: better Affect: appropriate, reactive, brightens up appropriately Thought process: more goal oriented Thought content: Denies SI. Ongoing intrusive thoughts of trauma. Future oriented Perception: does not appear to respond to internal stimuli Alert/oriented in all spheres Cognition grossly intact Insight: intact Judgment: intact Diagnostics Vital Signs (24Hr): Vital Signs - 24 hr 04/21/25 20:00 04/22/25 08:00 Temperature 97.5 F 98.2 F Pulse Rate 103 H 73 Respiratory Rate 16 20 Blood Pressure 112/66 104/65 Pulse Oximetry 94 97 Oxygen Delivery Method Room Air Room Air BMI result Body Mass Index 43.4 Labs 04/21/25 12:11 Labs: Laboratory Results - last 48 hr 04/20/25 04/21/25 04/21/25 20:05 07:58 11:51 Sodium Potassium Chloride Carbon Dioxide Anion Gap BUN Creatinine Estim Creat Clear Calc Estimated GFR POC Glucose 208 H 204 H 207 H Random Glucose Calcium Total Bilirubin AST ALT Alkaline Phosphatase Total Protein Albumin 04/21/25 04/21/25 04/21/25 12:11 16:43 19:57 Sodium 137 Potassium 4.5 Chloride 99 Carbon Dioxide 30 H Anion Gap 13 BUN 18 H Creatinine 1.12 Estim Creat Clear Calc 62.3 Estimated GFR 49 POC Glucose 191 H 206 H Random Glucose 212 H Calcium 9.6 Total Bilirubin 0.7 AST 78 H ALT 76 H Alkaline Phosphatase 169 H Total Protein 7.8 Albumin 4.4 04/22/25 04/22/25 04/22/25 07:16 11:58 16:49 Sodium Potassium Chloride Carbon Dioxide Anion Gap BUN Creatinine Estim Creat Clear Calc Estimated GFR POC Glucose 192 H 224 H 224 H Random Glucose Calcium Total Bilirubin AST ALT Alkaline Phosphatase Total Protein Albumin Medications Medications Current Medications Acetaminophen (Acetaminophen 325 Mg Tablet) 650 mg PO Q6H PRN PRN Reason: Headache/Pain, Scale 1-10 Al Hydroxide/Mg Hydroxide (Magnesium Hydrox/Alum Hydrox 30 Ml Oral.Susp) 30 ml PO Q6H PRN PRN Reason: Heartburn/Nausea Last Admin: 04/13/25 20:20 Dose: 30 ml Atorvastatin Calcium (Atorvastatin Calcium 80 Mg Tablet) 80 mg PO DAILY ZAN Last Admin: 04/22/25 08:54 Dose: 80 mg Clonidine HCl (Clonidine Hcl 0.1 Mg Tablet) 0.1 mg PO DAILY PRN; Protocol PRN Reason: Anxiety Last Admin: 04/20/25 13:10 Dose: 0.1 mg Clonidine HCl (Clonidine Hcl 0.1 Mg Tablet) 0.1 mg PO DAILY ZAN; Protocol Last Admin: 04/22/25 08:56 Dose: 0.1 mg Clonidine HCl (Clonidine Hcl 0.2 Mg Tablet) 0.2 mg PO BEDTIME ZAN; Protocol Last Admin: 04/21/25 20:35 Dose: 0.2 mg Dextrose (Dextrose 50 % 25 Gm/50 Ml Syringe) 25 gm IVPUSH Q15M PRN; Protocol PRN Reason: per Hypoglycemia Standing Ord. Famotidine (Famotidine 20 Mg Tablet) 40 mg PO DAILY [facility] Last Admin: 04/22/25 08:56 Dose: 40 mg Gabapentin (Gabapentin 400 Mg Capsule) 800 mg PO TID [facility] Last Admin: 04/22/25 14:24 Dose: 800 mg Glucose (Glucose Gel 15 Gm Gel..Gram.) 15 gm PO Q15M PRN; Protocol PRN Reason: per Hypoglycemia Standing Ord. Hydroxyzine HCl (Hydroxyzine Hcl 25 Mg Tablet) 25 mg PO Q6H PRN PRN Reason: mild anxiety Last Admin: 04/22/25 12:39 Dose: 25 mg Insulin Glargine (Insulin Glargine,Hum.Rec.Anlog 100 Unit/Ml 10 Ml Vial) 15 unit SUBCUT BEDTIME ZAN Last Admin: 04/21/25 20:35 Dose: 15 unit Insulin Human Lispro (Insulin Lispro 100 Unit/Ml 3 Ml Vial) 0 unit SUBCUT QIDACHS ZAN; Protocol Last Admin: 04/22/25 17:05 Dose: 4 unit Ketoconazole (Ketoconazole 2 % Shampoo 120 Ml Btl) 1 appl TOPICAL Q72H PRN; Protocol PRN Reason: Itching Last Admin: 04/21/25 14:54 Dose: 1 appl Ketotifen Fumarate (Ketotifen Fumarate 0.025% Oph 5 Ml Drpbtl) 1 drop EYE-BOTH BEDTIME [facility] Last Admin: 04/21/25 20:39 Dose: 1 drop Lidocaine (Lidocaine 4 % Patch Adh..Patch) 2 patch TRANSDERMA DAILY [facility]; Protocol Last Admin: 04/22/25 09:06 Dose: 2 patch Lisinopril (Lisinopril 20 Mg Tablet) 20 mg PO DAILY [facility]; Protocol Last Admin: 04/22/25 08:55 Dose: 20 mg Magnesium Hydroxide (Milk Of Magnesia 30 Ml Oral.Susp) 30 ml PO DAILY PRN PRN Reason: Constipation Last Admin: 04/18/25 09:03 Dose: 30 ml Methadone HCl (Methadone Hcl 20 Mg/2 Ml Oral.Conc) 20 mg PO DAILY@1200 [facility] Last Admin: 04/22/25 12:37 Dose: 20 mg Methadone HCl (Methadone Hcl 20 Mg/2 Ml Oral.Conc) 27 mg PO DAILY@2000 [facility] Last Admin: 04/21/25 20:31 Dose: 27 mg Nicotine (Nicotine 21 Mg Patch.Td24) 21 mg TRANSDERMA DAILY PRN PRN Reason: nicotine craving Nicotine Polacrilex (Nicotine Polacrilex 2 Mg Gum) 2 mg BUCCAL Q2H PRN PRN Reason: Nicotine Cravings Olanzapine (Olanzapine 5 Mg Tablet) 5 mg PO BID PRN PRN Reason: agitation Omeprazole (Omeprazole 20 Mg Capsule.Dr) 20 mg PO DAILY@0630 [facility] Last Admin: 04/22/25 06:17 Dose: 20 mg Polyethylene Glycol (Polyethylene Glycol 3350 17 Gm Powd.Pack) 17 gm PO DAILY [facility] Last Admin: 04/22/25 08:54 Dose: 17 gm Promethazine HCl (Promethazine Hcl 25 Mg Tablet) 25 mg PO Q8H PRN PRN Reason: Nausea Last Admin: 04/22/25 12:29 Dose: 25 mg Saliva Substitute (Dry Mouth [place] 60 Ml [place]) 2 spray MUCOUS MEM Q2H PRN PRN Reason: dry mouth Senna (Sennosides 8.6 Mg Tablet) 8.6 mg PO BID [facility] Last Admin: 04/22/25 08:56 Dose: 8.6 mg Senna/Docusate Sodium (Sennosides/Docusate Sodium Tablet) 1 tab PO BID [facility] Last Admin: 04/22/25 08:55 Dose: 1 tab Simethicone (Simethicone 80 Mg Tab.Chew) 80 mg PO BID [facility] Last Admin: 04/22/25 08:56 Dose: 80 mg Sitagliptin Phosphate (Sitagliptin Phosphate 25 Mg Tablet) 25 mg PO DAILY [facility] Last Admin: 04/22/25 08:55 Dose: 25 mg Tizanidine HCl (Tizanidine Hcl 4 Mg Tablet) 4 mg PO Q8H PRN PRN Reason: Muscle Spasm Last Admin: 04/22/25 12:29 Dose: 4 mg Trazodone HCl (Trazodone Hcl 50 Mg Tablet) 50 mg PO BEDTIME MRX1 PRN PRN Reason: Insomnia Vitamin D (Cholecalciferol (Vitamin D3) 25 Mcg Tablet) 50 mcg PO DAILY [facility] Last Admin: 04/22/25 08:56 Dose: 50 mcg Allergies Allergies Allergy/AdvReac Type Severity Reaction Status Date / Time No Known Allergies Allergy Verified 04/12/25 17:41 Assessment & Plan Assessment & Plan (1) MDD (major depressive disorder), recurrent severe, without psychosis: Status: Acute Code(s): F33.2 - Major depressive disorder, recurrent severe without psychotic features (2) PTSD (post-traumatic stress disorder): Status: Acute Code(s): F43.10 - Post-traumatic stress disorder, unspecified (3) Opioid use disorder, severe, on maintenance therapy, dependence: Status: Acute Code(s): F11.20 - Opioid dependence, uncomplicated (4) Cocaine use disorder in remission: Status: Acute Code(s): F14.91 - Cocaine use, unspecified, in remission Plan Ms. Reyes is a 64 yo partnered W F with h/o MDD, PTSD, ADHD, OUD on methadone, cocaine use d/o in remission, type II DM, HTN, HLD, CKD, and COPD who self- presented to the [facility] ED due to worsening depression and passive SI. She was transferred to [facility] for safety and stabilization. Pt endorses an extensive h/o trauma and has been grieving the losses of multiple loved ones (all occurred years ago). She is stressed w/ her current housing since she frequently hears sirens and it triggers her PTSD. It's not clear if there have been more acute stressors contributing to her worsening depression, as her thought process is circumstantial and she needed frequent redirection. She sought a voluntary inpatient psychiatric admission due to worsening depression but is stressed about being far from her support system at home. She has a h/o multiple failed antidepressant trials and can't recall all of them. Plan: Admitted to [facility] for safety and stabilization Legal status- CV 15 min safety checks Continue current home meds for now. Not currently taking mirtazapine Pt provided consent for me to communicate w/ her outpatient psychiatrist for care coordination. Will reach out tomorrow Medical H&P completed by hospitalist and reviewed by t/w. Input appreciated * Chronic kidney disease stage IIIB -Baseline creatinine 1.7 EGFR 36 -Avoid nephrotoxins * Hypertension/hyperlipidemia -Continue atorvastatin, clonidine, and lisinopril * COPD -Not in acute exacerbation -Not on maintenance meds * Type 2 diabetes -Recent A1c 12.1 - reports that she was on metformin and Mounjaro as an outpatient -Unable to bring in her Mounjaro due to distance of her family -Will start Januvia and insulin sliding scale. -She will need to follow up with the primary care outpatient. -Metformin not restarted due to elevated liver functions * Elevated LFTs -Patient reports her LFTs have been elevated in the past -She currently follows GI outpatient for this. 04/14- Mood is improving w/ milieu therapy. She would like to switch the methadone to split dosing and start to gradually taper it. Agreeable w/ plan to take 20 mg ~2:30 pm and 30 mg at hs (tapering by 3 mg). Will consider a trial of abilify 04/16:Continue current regimen and plans. Ketoconazole shampoo/wants ordered 04/17:Continue current regimen and plans 04/18: D/C'd ABilify per pt request due to sweating/jitteriness. Prefers to defer adding any new meds for now, plans to pursue TMS as an outpatient. She is benefitting from milieu therapy- interacting w/ staff/peers, leaving her room (unable to do this at home). Per pt request- will taper methadone tonight by 3 mg. New dosing- 20 mg in afternoon + 27 mg at hs. Ordered prn senna and colace, which she takes at home. D/C planning- likely on 04/20: Continue current med regimen. Pt doesn't feel safe returning home (as she has experienced multiple traumatic events at/near her home) but denies active SI. She would like to attend a respite to ease her transition back home. 04/22: P-Continue current med regimen/tx plan. D/C on Fri to respite. Reason for continued inpatient stay Substantial Risk for: med/psych decompensation Time Spent With Patient Time: Total time managing care of this patient today ____ minutes.
[2025-04-22 20:10] LABS: Glucose, Whole Blood 228 mg/dL (60-115)
[2025-04-22 20:25] VITALS: BP 123/71; PULSE 89; RESP 16; TEMP 36.3; O2SAT 93
[2025-04-22] MEDS: Insulin Glargine,Hum.rec.anlog 100 UNIT/ML 10 ML VIAL 15 UNIT SUBCUT (20:33)
[2025-04-22] MEDS: Ketotifen Fumarate 0.025% Oph 5 ML DRPBTL 1 DROP EYE-BOTH (20:51)
[2025-04-22] MEDS: methADONE HCl 20 MG/2 ML ORAL.CONC 27 MG PO (20:52)
[2025-04-23 07:29] LABS: Glucose, Whole Blood 186 mg/dL (60-115)
[2025-04-23 07:40] VITALS: BP 94/50; PULSE 72; RESP 14; TEMP 36.2; O2SAT 97
[2025-04-23 08:46] VITALS: BP 133/64
[2025-04-23 08:47] VITALS: BP 133/64
[2025-04-23] MEDS: Lidocaine 4 % Patch ADH..PATCH 2 PATCH TRANSDERMA (08:50)
[2025-04-23 11:51] LABS: Glucose, Whole Blood 215 mg/dL (60-115)
[2025-04-23] MEDS: methADONE HCl 20 MG/2 ML ORAL.CONC PO (11:59)
--- NOTE | 2025-04-23 14:14 | P.PNPSI_ITS ---
Subjective Subjective Date of Service: 04/23/25 Reason For Visit: Major Depressve dsorder Subjective Notes: Conditional Voluntary Interim History: Pt slept 8hrs. She continues to report that mood is good No SI/HI looking forward to step down to [facility]. This literary writer called [facility] to verify what needs to be done for her methadone dosig. RN from [facility] told this literary writer pt only needs last dose letter and they can bring pt to near by methadone clinic. Mental Status Exam Mental Status Exam Narrative: Appearance:casual clothing, fair hygiene, in NAD Behavior: cooperative Psychomotor: no agitation or retardation notes Speech: clear, normal rate/rhythm/volume, spontaneous TP: linear TC: feeling better, looking forward to go to [facility] Mood: better Affect: congruent SI: denies HI: none VH/AH: none Delusions: none Insight/judgment: fair x 2. Memory/cog: alert, oriented x 3. grossly intact to conversational testing. Diagnostics Vital Signs (24Hr): Vital Signs - 24 hr 04/22/25 20:25 04/23/25 07:40 04/23/25 08:46 Temperature 97.3 F 97.2 F Pulse Rate 89 72 Respiratory Rate 16 14 Blood Pressure 123/71 94/50 L 133/64 Pulse Oximetry 93 97 Oxygen Delivery Method Room Air Room Air 04/23/25 08:47 Temperature Pulse Rate Respiratory Rate Blood Pressure 133/64 Pulse Oximetry Oxygen Delivery Method BMI result Body Mass Index 43.4 Labs 04/21/25 12:11 Labs: Laboratory Results - last 48 hr 04/21/25 04/21/25 04/22/25 16:43 19:57 07:16 POC Glucose 191 H 206 H 192 H 04/22/25 04/22/25 04/22/25 11:58 16:49 20:03 POC Glucose 224 H 224 H 228 H 04/23/25 04/23/25 07:18 11:43 POC Glucose 186 H 215 H Medications Medications Current Medications Acetaminophen (Acetaminophen 325 Mg Tablet) 650 mg PO Q6H PRN PRN Reason: Headache/Pain, Scale 1-10 Al Hydroxide/Mg Hydroxide (Magnesium Hydrox/Alum Hydrox 30 Ml Oral.Susp) 30 ml PO Q6H PRN PRN Reason: Heartburn/Nausea Last Admin: 04/13/25 20:20 Dose: 30 ml Atorvastatin Calcium (Atorvastatin Calcium 80 Mg Tablet) 80 mg PO DAILY [facility] Last Admin: 04/23/25 08:40 Dose: 80 mg Clonidine HCl (Clonidine Hcl 0.1 Mg Tablet) 0.1 mg PO DAILY PRN; Protocol PRN Reason: Anxiety Last Admin: 04/20/25 13:10 Dose: 0.1 mg Clonidine HCl (Clonidine Hcl 0.1 Mg Tablet) 0.1 mg PO DAILY [facility]; Protocol Last Admin: 04/23/25 08:46 Dose: 0.1 mg Clonidine HCl (Clonidine Hcl 0.2 Mg Tablet) 0.2 mg PO BEDTIME [facility]; Protocol Last Admin: 04/22/25 20:30 Dose: 0.2 mg Dextrose (Dextrose 50 % 25 Gm/50 Ml Syringe) 25 gm IVPUSH Q15M PRN; Protocol PRN Reason: per Hypoglycemia Standing Ord. Famotidine (Famotidine 20 Mg Tablet) 40 mg PO DAILY [facility] Last Admin: 04/23/25 08:41 Dose: 40 mg Gabapentin (Gabapentin 400 Mg Capsule) 800 mg PO TID [facility]AN Last Admin: 04/23/25 08:39 Dose: 800 mg Glucose (Glucose Gel 15 Gm Gel..Gram.) 15 gm PO Q15M PRN; Protocol PRN Reason: per Hypoglycemia Standing Ord. Hydroxyzine HCl (Hydroxyzine Hcl 25 Mg Tablet) 25 mg PO Q6H PRN PRN Reason: mild anxiety Last Admin: 04/22/25 20:31 Dose: 25 mg Insulin Glargine (Insulin Glargine,Hum.Rec.Anlog 100 Unit/Ml 10 Ml Vial) 15 unit SUBCUT BEDTIME [facility]AN Last Admin: 04/22/25 20:33 Dose: 15 unit Insulin Human Lispro (Insulin Lispro 100 Unit/Ml 3 Ml Vial) 0 unit SUBCUT QIDACHS [facility]; Protocol Last Admin: 04/23/25 12:03 Dose: 4 unit Ketoconazole (Ketoconazole 2 % Shampoo 120 Ml Btl) 1 appl TOPICAL Q72H PRN; Protocol PRN Reason: Itching Last Admin: 04/21/25 14:54 Dose: 1 appl Ketotifen Fumarate (Ketotifen Fumarate 0.025% Oph 5 Ml Drpbtl) 1 drop EYE-BOTH BEDTIME [facility]AN Last Admin: 04/22/25 20:51 Dose: 1 drop Lidocaine (Lidocaine 4 % Patch Adh..Patch) 2 patch TRANSDERMA DAILY [facility]; Protocol Last Admin: 04/23/25 08:50 Dose: 2 patch Lisinopril (Lisinopril 20 Mg Tablet) 20 mg PO DAILY [facility]; Protocol Last Admin: 04/23/25 08:47 Dose: 20 mg Magnesium Hydroxide (Milk Of Magnesia 30 Ml Oral.Susp) 30 ml PO DAILY PRN PRN Reason: Constipation Last Admin: 04/18/25 09:03 Dose: 30 ml Methadone HCl (Methadone Hcl 20 Mg/2 Ml Oral.Conc) 20 mg PO DAILY@1200 [facility] Last Admin: 04/23/25 11:59 Dose: 20 mg Methadone HCl (Methadone Hcl 20 Mg/2 Ml Oral.Conc) 27 mg PO DAILY@2000 [facility] Last Admin: 04/22/25 20:52 Dose: 27 mg Nicotine (Nicotine 21 Mg Patch.Td24) 21 mg TRANSDERMA DAILY PRN PRN Reason: nicotine craving Nicotine Polacrilex (Nicotine Polacrilex 2 Mg Gum) 2 mg BUCCAL Q2H PRN PRN Reason: Nicotine Cravings Olanzapine (Olanzapine 5 Mg Tablet) 5 mg PO BID PRN PRN Reason: agitation Omeprazole (Omeprazole 20 Mg Capsule.Dr) 20 mg PO DAILY@0630 [facility] Last Admin: 04/23/25 07:00 Dose: 20 mg Polyethylene Glycol (Polyethylene Glycol 3350 17 Gm Powd.Pack) 17 gm PO DAILY [facility] Last Admin: 04/23/25 08:38 Dose: 17 gm Promethazine HCl (Promethazine Hcl 25 Mg Tablet) 25 mg PO Q8H PRN PRN Reason: Nausea Last Admin: 04/22/25 20:31 Dose: 25 mg Saliva Substitute (Dry Mouth [place] 60 Ml [place]) 2 spray MUCOUS MEM Q2H PRN PRN Reason: dry mouth Senna (Sennosides 8.6 Mg Tablet) 8.6 mg PO BID [facility] Last Admin: 04/23/25 08:40 Dose: 8.6 mg Senna/Docusate Sodium (Sennosides/Docusate Sodium Tablet) 1 tab PO BID [facility] Last Admin: 04/23/25 08:40 Dose: 1 tab Simethicone (Simethicone 80 Mg Tab.Chew) 80 mg PO BID [facility] Last Admin: 04/23/25 08:40 Dose: 80 mg Sitagliptin Phosphate (Sitagliptin Phosphate 25 Mg Tablet) 25 mg PO DAILY [facility] Last Admin: 04/23/25 08:40 Dose: 25 mg Tizanidine HCl (Tizanidine Hcl 4 Mg Tablet) 4 mg PO Q8H PRN PRN Reason: Muscle Spasm Last Admin: 04/22/25 20:32 Dose: 4 mg Trazodone HCl (Trazodone Hcl 50 Mg Tablet) 50 mg PO BEDTIME MRX1 PRN PRN Reason: Insomnia Vitamin D (Cholecalciferol (Vitamin D3) 25 Mcg Tablet) 50 mcg PO DAILY [facility] Last Admin: 04/23/25 08:41 Dose: 50 mcg Allergies Allergies Allergy/AdvReac Type Severity Reaction Status Date / Time No Known Allergies Allergy Verified 04/12/25 17:41 Assessment & Plan Assessment & Plan (1) MDD (major depressive disorder), recurrent severe, without psychosis: Status: Acute Code(s): F33.2 - Major depressive disorder, recurrent severe without psychotic features (2) PTSD (post-traumatic stress disorder): Status: Acute Code(s): F43.10 - Post-traumatic stress disorder, unspecified (3) Opioid use disorder, severe, on maintenance therapy, dependence: Status: Acute Code(s): F11.20 - Opioid dependence, uncomplicated (4) Cocaine use disorder in remission: Status: Acute Code(s): F14.91 - Cocaine use, unspecified, in remission Plan Ms. Reyes is a 64 yo partnered W F with h/o MDD, PTSD, ADHD, OUD on methadone, cocaine use d/o in remission, type II DM, HTN, HLD, CKD, and COPD who self- presented to the [facility] ED due to worsening depression and passive SI. She was transferred to [facility] for safety and stabilization. Pt endorses an extensive h/o trauma and has been grieving the losses of multiple loved ones (all occurred years ago). She is stressed w/ her current housing since she frequently hears sirens and it triggers her PTSD. It's not clear if there have been more acute stressors contributing to her worsening depression, as her thought process is circumstantial and she needed frequent redirection. She sought a voluntary inpatient psychiatric admission due to worsening depression but is stressed about being far from her support system at home. She has a h/o multiple failed antidepressant trials and can't recall all of them. Plan: Admitted to [facility] for safety and stabilization Legal status- CV 15 min safety checks Continue current home meds for now. Not currently taking mirtazapine Pt provided consent for me to communicate w/ her outpatient psychiatrist for care coordination. Will reach out tomorrow Medical H&P completed by hospitalist and reviewed by t/w. Input appreciated * Chronic kidney disease stage IIIB -Baseline creatinine 1.7 EGFR 36 -Avoid nephrotoxins * Hypertension/hyperlipidemia -Continue atorvastatin, clonidine, and lisinopril * COPD -Not in acute exacerbation -Not on maintenance meds * Type 2 diabetes -Recent A1c 12.1 - reports that she was on metformin and Mounjaro as an outpatient -Unable to bring in her Mounjaro due to distance of her family -Will start Januvia and insulin sliding scale. -She will need to follow up with the primary care outpatient. -Metformin not restarted due to elevated liver functions * Elevated LFTs -Patient reports her LFTs have been elevated in the past -She currently follows GI outpatient for this. 04/14- Mood is improving w/ milieu therapy. She would like to switch the methadone to split dosing and start to gradually taper it. Agreeable w/ plan to take 20 mg ~2:30 pm and 30 mg at hs (tapering by 3 mg). Will consider a trial of abilify 04/16:Continue current regimen and plans. Ketoconazole shampoo/wants ordered 04/17:Continue current regimen and plans 04/18: D/C'd ABilify per pt request due to sweating/jitteriness. Prefers to defer adding any new meds for now, plans to pursue TMS as an outpatient. She is benefitting from milieu therapy- interacting w/ staff/peers, leaving her room (unable to do this at home). Per pt request- will taper methadone tonight by 3 mg. New dosing- 20 mg in afternoon + 27 mg at hs. Ordered prn senna and colace, which she takes at home. D/C planning- likely on 04/20: Continue current med regimen. Pt doesn't feel safe returning home (as she has experienced multiple traumatic events at/near her home) but denies active SI. She would like to attend a respite to ease her transition back home. 04/22: P-Continue current med regimen/tx plan. D/C on Mon to respite. 04/23 This literary writer called [facility] to verify what needs to be done for her methadone dosig. RN from [facility] told this literary writer pt only needs last dose letter and they can bring pt to near by methadone clinic. no SI/HI. stable otherwise. Reason for continued inpatient stay Substantial Risk for: inability to function Time Spent With Patient Time: Total time managing care of this patient today ____ minutes.
[2025-04-23 15:51] VITALS: BP 117/61
[2025-04-23] MEDS: Dry Mouth Spray 60 ML SPRAY 2 SPRAY MUCOUS MEM (15:51)
[2025-04-23 16:52] LABS: Glucose, Whole Blood 257 mg/dL (60-115)
[2025-04-23 20:00] VITALS: BP 118/69; PULSE 98; RESP 17; TEMP 36.3; O2SAT 96
[2025-04-23] MEDS: Insulin Glargine,Hum.rec.anlog 100 UNIT/ML 10 ML VIAL 15 UNIT SUBCUT (20:37)
[2025-04-23] MEDS: methADONE HCl 20 MG/2 ML ORAL.CONC 27 MG PO (20:43)
[2025-04-23] MEDS: Ketotifen Fumarate 0.025% Oph 5 ML DRPBTL 1 DROP EYE-BOTH (20:44)
[2025-04-23 20:59] LABS: Glucose, Whole Blood 239 mg/dL (60-115)
[2025-04-24 07:51] LABS: Glucose, Whole Blood 193 mg/dL (60-115)
[2025-04-24 08:00] VITALS: BP 107/51; PULSE 71; RESP 18; TEMP 36.2
[2025-04-24 08:43] VITALS: BP 107/51
[2025-04-24] MEDS: Lidocaine 4 % Patch ADH..PATCH 2 PATCH TRANSDERMA (08:46)
[2025-04-24 11:53] LABS: Glucose, Whole Blood 259 mg/dL (60-115)
[2025-04-24] MEDS: methADONE HCl 20 MG/2 ML ORAL.CONC PO (12:01)
[2025-04-24 12:39] VITALS: BP 108/61
[2025-04-24 16:58] LABS: Glucose, Whole Blood 200 mg/dL (60-115)
[2025-04-24 19:46] VITALS: BP 93/53; PULSE 72; RESP 17; TEMP 36.2; O2SAT 96
[2025-04-24] MEDS: methADONE HCl 20 MG/2 ML ORAL.CONC 27 MG PO (20:15)
[2025-04-24 20:31] LABS: Glucose, Whole Blood 203 mg/dL (60-115)
[2025-04-24] MEDS: Milk of Magnesia 30 ML ORAL.SUSP PO (20:34)
[2025-04-24] MEDS: Insulin Glargine,Hum.rec.anlog 100 UNIT/ML 10 ML VIAL 15 UNIT SUBCUT (20:36)
[2025-04-24 20:38] VITALS: BP 96/64
--- NOTE | 2025-04-24 20:40 | HO.PSYCHPN ---
Subjective Subjective Date of Service: 04/24/25 Reason For Visit: Major Depressve dsorder Subjective Notes: Conditional Voluntary Interim History: Pt slept 8hrs. She continues to report that mood is good No SI/HI looking forward to step down to [facility]. She asks if dose of methadone can be changed to all morning, however, she has been splitting dose due to oversedation. advised pt to keep current dose for now as she is leaving tomorrow. Diagnostics Vital Signs (24Hr): Vital Signs - 24 hr 04/24/25 08:00 04/24/25 08:43 04/24/25 12:39 Temperature 97.2 F Pulse Rate 71 Respiratory Rate 18 Blood Pressure 107/51 L 107/51 L 108/61 Pulse Oximetry Oxygen Delivery Method 04/24/25 19:46 04/24/25 20:38 Temperature 97.2 F Pulse Rate 72 Respiratory Rate 17 Blood Pressure 93/53 L 96/64 Pulse Oximetry 96 Oxygen Delivery Method Room Air BMI result Body Mass Index 43.4 Labs 04/21/25 12:11 Labs: Laboratory Results - last 48 hr 04/23/25 04/23/25 04/23/25 07:18 11:43 16:45 POC Glucose 186 H 215 H 257 H 04/23/25 04/24/25 04/24/25 20:21 07:42 11:49 POC Glucose 239 H 193 H 259 H 04/24/25 04/24/25 16:50 20:27 POC Glucose 200 H 203 H Medications Medications Current Medications Acetaminophen (Acetaminophen 325 Mg Tablet) 650 mg PO Q6H PRN PRN Reason: Headache/Pain, Scale 1-10 Last Admin: 04/24/25 12:48 Dose: 650 mg Al Hydroxide/Mg Hydroxide (Magnesium Hydrox/Alum Hydrox 30 Ml Oral.Susp) 30 ml PO Q6H PRN PRN Reason: Heartburn/Nausea Last Admin: 04/13/25 20:20 Dose: 30 ml Atorvastatin Calcium (Atorvastatin Calcium 80 Mg Tablet) 80 mg PO DAILY ZAN Last Admin: 04/24/25 08:43 Dose: 80 mg Clonidine HCl (Clonidine Hcl 0.1 Mg Tablet) 0.1 mg PO DAILY PRN; Protocol PRN Reason: Anxiety Last Admin: 04/24/25 12:39 Dose: 0.1 mg Clonidine HCl (Clonidine Hcl 0.1 Mg Tablet) 0.1 mg PO DAILY ZAN; Protocol Last Admin: 04/24/25 08:44 Dose: 0.1 mg Clonidine HCl (Clonidine Hcl 0.2 Mg Tablet) 0.2 mg PO BEDTIME ZAN; Protocol Last Admin: 04/24/25 20:38 Dose: 0.2 mg Dextrose (Dextrose 50 % 25 Gm/50 Ml Syringe) 25 gm IVPUSH Q15M PRN; Protocol PRN Reason: per Hypoglycemia Standing Ord. Famotidine (Famotidine 20 Mg Tablet) 40 mg PO DAILY ZAN Last Admin: 04/24/25 08:43 Dose: 40 mg Gabapentin (Gabapentin 400 Mg Capsule) 800 mg PO TID ZAN Last Admin: 04/24/25 20:38 Dose: 800 mg Glucose (Glucose Gel 15 Gm Gel..Gram.) 15 gm PO Q15M PRN; Protocol PRN Reason: per Hypoglycemia Standing Ord. Hydroxyzine HCl (Hydroxyzine Hcl 25 Mg Tablet) 25 mg PO Q6H PRN PRN Reason: mild anxiety Last Admin: 04/24/25 12:40 Dose: 25 mg Insulin Glargine (Insulin Glargine,Hum.Rec.Anlog 100 Unit/Ml 10 Ml Vial) 15 unit SUBCUT BEDTIME ZAN Last Admin: 04/24/25 20:36 Dose: 15 unit Insulin Human Lispro (Insulin Lispro 100 Unit/Ml 3 Ml Vial) 0 unit SUBCUT QIDACHS ZAN; Protocol Last Admin: 04/24/25 20:36 Dose: 4 unit Ketoconazole (Ketoconazole 2 % Shampoo 120 Ml Btl) 1 appl TOPICAL Q72H PRN; Protocol PRN Reason: Itching Last Admin: 04/21/25 14:54 Dose: 1 appl Ketotifen Fumarate (Ketotifen Fumarate 0.025% Oph 5 Ml Drpbtl) 1 drop EYE-BOTH BEDTIME ZAN Last Admin: 04/23/25 20:44 Dose: 1 drop Lidocaine (Lidocaine 4 % Patch Adh..Patch) 2 patch TRANSDERMA DAILY ZAN; Protocol Last Admin: 04/24/25 08:46 Dose: 2 patch Lisinopril (Lisinopril 20 Mg Tablet) 20 mg PO DAILY ZAN; Protocol Last Admin: 04/24/25 08:43 Dose: 20 mg Magnesium Hydroxide (Milk Of Magnesia 30 Ml Oral.Susp) 30 ml PO DAILY PRN PRN Reason: Constipation Last Admin: 04/24/25 20:34 Dose: 30 ml Methadone HCl (Methadone Hcl 20 Mg/2 Ml Oral.Conc) 20 mg PO DAILY@1200 [facility] Last Admin: 04/24/25 12:01 Dose: 20 mg Methadone HCl (Methadone Hcl 20 Mg/2 Ml Oral.Conc) 27 mg PO DAILY@2000 [facility] Last Admin: 04/24/25 20:15 Dose: 27 mg Nicotine (Nicotine 21 Mg Patch.Td24) 21 mg TRANSDERMA DAILY PRN PRN Reason: nicotine craving Nicotine Polacrilex (Nicotine Polacrilex 2 Mg Gum) 2 mg BUCCAL Q2H PRN PRN Reason: Nicotine Cravings Olanzapine (Olanzapine 5 Mg Tablet) 5 mg PO BID PRN PRN Reason: agitation Omeprazole (Omeprazole 20 Mg Capsule.Dr) 20 mg PO DAILY@06 [facility] Last Admin: 04/24/25 07:00 Dose: 20 mg Polyethylene Glycol (Polyethylene Glycol 3350 17 Gm Powd.Pack) 17 gm PO DAILY [facility] Last Admin: 04/24/25 08:47 Dose: 17 gm Promethazine HCl (Promethazine Hcl 25 Mg Tablet) 25 mg PO Q8H PRN PRN Reason: Nausea Last Admin: 04/24/25 12:38 Dose: 25 mg Saliva Substitute (Dry Mouth Antlers 60 Ml Antlers) 2 spray MUCOUS MEM Q2H PRN PRN Reason: dry mouth Last Admin: 04/23/25 15:51 Dose: 2 spray Senna (Sennosides 8.6 Mg Tablet) 8.6 mg PO BID [facility] Last Admin: 04/24/25 20:38 Dose: 8.6 mg Senna/Docusate Sodium (Sennosides/Docusate Sodium Tablet) 1 tab PO BID [facility] Last Admin: 04/24/25 20:38 Dose: 1 tab Simethicone (Simethicone 80 Mg Tab.Chew) 80 mg PO BID [facility] Last Admin: 04/24/25 20:37 Dose: 80 mg Sitagliptin Phosphate (Sitagliptin Phosphate 25 Mg Tablet) 25 mg PO DAILY [facility] Last Admin: 04/24/25 08:44 Dose: 25 mg Tizanidine HCl (Tizanidine Hcl 4 Mg Tablet) 4 mg PO Q8H PRN PRN Reason: Muscle Spasm Last Admin: 04/24/25 12:38 Dose: 4 mg Trazodone HCl (Trazodone Hcl 50 Mg Tablet) 50 mg PO BEDTIME MRX1 PRN PRN Reason: Insomnia Vitamin D (Cholecalciferol (Vitamin D3) 25 Mcg Tablet) 50 mcg PO DAILY ZAN Last Admin: 04/24/25 08:44 Dose: 50 mcg Allergies Allergies Allergy/AdvReac Type Severity Reaction Status Date / Time No Known Allergies Allergy Verified 04/12/25 17:41 Assessment & Plan Assessment & Plan (1) MDD (major depressive disorder), recurrent severe, without psychosis: Status: Acute Code(s): F33.2 - Major depressive disorder, recurrent severe without psychotic features (2) PTSD (post-traumatic stress disorder): Status: Acute Code(s): F43.10 - Post-traumatic stress disorder, unspecified (3) Opioid use disorder, severe, on maintenance therapy, dependence: Status: Acute Code(s): F11.20 - Opioid dependence, uncomplicated (4) Cocaine use disorder in remission: Status: Acute Code(s): F14.91 - Cocaine use, unspecified, in remission Plan Ms. Reyes is a 64 yo partnered W F with h/o MDD, PTSD, ADHD, OUD on methadone, cocaine use d/o in remission, type II DM, HTN, HLD, CKD, and COPD who self-presented to the [facility] ED due to worsening depression and passive SI. She was transferred to [facility] for safety and stabilization. Pt endorses an extensive h/o trauma and has been grieving the losses of multiple loved ones (all occurred years ago). She is stressed w/ her current housing since she frequently hears sirens and it triggers her PTSD. It's not clear if there have been more acute stressors contributing to her worsening depression, as her thought process is circumstantial and she needed frequent redirection. She sought a voluntary inpatient psychiatric admission due to worsening depression but is stressed about being far from her support system at home. She has a h/o multiple failed antidepressant trials and can't recall all of them. Plan: Admitted to for safety and stabilization Legal status- CV 15 min safety checks Continue current home meds for now. Not currently taking mirtazapine Pt provided consent for me to communicate w/ her outpatient psychiatrist for care coordination. Will reach out tomorrow Medical H&P completed by hospitalist and reviewed by t/w. Input appreciated Chronic kidney disease stage IIIB -Baseline creatinine 1.7 EGFR 36 -Avoid nephrotoxins Hypertension/hyperlipidemia -Continue atorvastatin, clonidine, and lisinopril COPD -Not in acute exacerbation -Not on maintenance meds Type 2 diabetes -Recent A1c 12.1 - reports that she was on metformin and Mounjaro as an outpatient -Unable to bring in her Mounjaro due to distance of her family -Will start Januvia and insulin sliding scale. -She will need to follow up with the primary care outpatient. -Metformin not restarted due to elevated liver functions Elevated LFTs -Patient reports her LFTs have been elevated in the past -She currently follows GI outpatient for this. 04/14- Mood is improving w/ milieu therapy. She would like to switch the methadone to split dosing and start to gradually taper it. Agreeable w/ plan to take 20 mg ~2:30 pm and 30 mg at hs (tapering by 3 mg). Will consider a trial of abilify 04/16:Continue current regimen and plans. Ketoconazole shampoo/wants ordered 04/17:Continue current regimen and plans 04/18: D/C'd ABilify per pt request due to sweating/jitteriness. Prefers to defer adding any new meds for now, plans to pursue TMS as an outpatient. She is benefitting from milieu therapy- interacting w/ staff/peers, leaving her room (unable to do this at home). Per pt request- will taper methadone tonight by 3 mg. New dosing- 20 mg in afternoon + 27 mg at hs. Ordered prn senna and colace, which she takes at home. D/C planning- likely on 04/20: Continue current med regimen. Pt doesn't feel safe returning home (as she has experienced multiple traumatic events at/near her home) but denies active SI. She would like to attend a respite to ease her transition back home. 04/22: P-Continue current med regimen/tx plan. D/C on Fri to respite. 04/23 This residential mortgage underwriter called [facility] to verify what needs to be done for her methadone dosing. RN from [facility] told this residential mortgage underwriter pt only needs last dose letter and they can bring pt to near by methadone clinic. no SI/HI. stable otherwise. 04/24 pt asked to change methadone dose to morning but it has been split due to over sedation. advised at this point to keep as it as she is leaving tomorrow morning. Reason for continued inpatient stay Substantial Risk for: inability to function Time Spent With Patient Time: Total time managing care of this patient today ____ minutes.
[2025-04-24 20:51] VITALS: BP 96/64
[2025-04-25 07:27] LABS: Glucose, Whole Blood 191 mg/dL (60-115)
[2025-04-25 08:00] VITALS: BP 100/58; PULSE 70; RESP 16; TEMP 36.4; O2SAT 95
[2025-04-25] MEDS: methADONE HCl 20 MG/2 ML ORAL.CONC 27 MG PO (09:41)
[2025-04-25] MEDS: Lidocaine 4 % Patch ADH..PATCH 2 PATCH TRANSDERMA (09:45)
[2025-04-25] MEDS: methADONE HCl 20 MG/2 ML ORAL.CONC PO (09:55)
--- NOTE | 2025-04-25 10:06 | P.DS_ITS ---
DS: Providers Provider Date of Service: 04/25/25 Date of admission: 04/12/25 16:51 Date of discharge: 04/25/25 Primary care physician: Unknown Physician Attending physician on admission: Johanna Trevino Consults: 04/12/25 17:50 Consult to Hospitalist Routine Comment: Consulting Provider: [facility] Hospitalists Reason For Exam: Admission physical 04/16/25 20:28 Consult to Hospitalist Routine Comment: Consulting Provider: [facility] Hospitalists Reason For Exam: Diabetic management/long acting insulin Attending physician on discharge: Johanna Trevino DS: Diagnosis Discharge Diagnosis (1) MDD (major depressive disorder), recurrent severe, without psychosis: Status: Acute (2) PTSD (post-traumatic stress disorder): Status: Acute (3) Opioid use disorder, severe, on maintenance therapy, dependence: Status: Acute (4) Cocaine use disorder in remission: Status: Acute DS: Medications Discharge Medications Home Medications: Previous Rx's ?Medication ?Instructions ?Recorded acetaminophen 325 mg tablet 650 mg (2 x 325 mg) PO Q6H PRN 04/25/25 Headache/Pain, Scale 1-10 #0 tabs aluminum-magnesium hydroxide 200 30 ml PO Q6H PRN Hear tburn/Nausea 04/25/25 mg-200 mg/5 mL oral suspension #0 mL (MAG-AL) atorvastatin 80 mg tablet 80 mg PO DAILY #0 tabs 04/25 cholecalciferol (vitamin D3) 25 50 mcg (2 x 25 mcg (1, 000 unit)) 04/25/25 mcg (1,000 unit) tablet PO DAILY #0 tabs clonidine HCl 0.1 mg tablet 0.1 mg PO DAILY #0 tabs clonidine HCl 0.1 mg tablet 0.1 mg PO DAILY PRN Anxiet y #0 tabs 04/25/25 clonidine HCl 0.2 mg tablet 0.2 mg PO BEDTIME #0 tabs 04/25/25 dextrose 40 % oral gel (Glutose-15) 15 g PO Q15M PRN P er Hypoglycemia 04/25/25 Standing Ord. #0 grams famotidine 20 mg tablet 40 mg (2 x 20 mg) PO DAILY # 0 tabs 04/25/25 gabapentin 400 mg capsule 800 mg (2 x 400 mg) PO TID # 0 caps 04/25/25 hydroxyzine HCl 25 mg tablet 25 mg PO Q6H PRN mild anx iety #0 04/25/25 tabs insulin glargine 100 unit/mL 15 unit (0.15 mL) subcut BEDTIME 04/25/25 subcutaneous solution (Lantus #0 mL U-100 Insulin) insulin lispro 100 unit/mL See Protocol subcut QIDACHS #0 mL 04/25/25 subcutaneous solution (Admelog U-100 Insulin lispro) ketoconazole 2 % shampoo 1 appl topical Q72H PRN Itch ing #0 04/25/25 mL ketotifen fumarate 0.025 % (0.035 1 drp ophthalmic (ey e) BEDTIME #0 04/25/25 %) eye drops (Eye Itch Relief) mL lidocaine 4 % topical patch 2 patch transdermal DAILY #0 ea 04/25/25 (Lidocaine Pain Relief) lisinopril 20 mg tablet 20 mg PO DAILY #0 tabs 04/25 magnesium hydroxide 400 mg/5 mL 30 ml PO DAILY PRN Con stipation #0 04/25/25 oral suspension (Milk of Magnesia) mL methadone 10 mg/mL oral 20 mg (2 mL) PO DAILY@1200 # 0 mL 04/25/25 concentrate (Methadose) methadone 10 mg/mL oral 27 mg (2.7 mL) PO DAILY@2000 #0 mL 04/25/25 concentrate (Methadose) omeprazole 20 mg capsule,delayed 20 mg PO DAILY@0630 # 0 caps 04/25/25 release polyethylene glycol 3350 17 gram 17 g PO DAILY #0 ea 1 06/26/24 oral powder packet promethazine 25 mg tablet 25 mg PO Q8H PRN Nausea #0 t abs 04/25/25 sennosides 8.6 mg tablet (Senna 8.6 mg PO BID #0 tabs 04/25/25 Lax) sennosides 8.6 mg-docusate sodium 1 tab PO BID #0 tabs 04/25/25 50 mg tablet (Senna Plus) simethicone 80 mg chewable tablet 80 mg PO BID #0 tabs 04/25/25 sitagliptin phosphate 25 mg tablet 25 mg PO DAILY #0 t abs 04/25/25 (Januvia) tizanidine 4 mg tablet 4 mg PO Q8H PRN Muscle Spasm #0 04/25/25 tabs xylitol-yerba mahendra mucosal spray 2 spray mucous membr ane Q2H PRN 04/25/25 with pump (MouthKote Colver) dry mouth #0 mL Mental Status Exam Mental Status Exam Narrative: Appearance: Casually dressed. Grooming/hygiene wnl. Good eye contact Attitude:Cooperative Speech: Fluent and wnl in regard to volume, tone, prosody Motor activity: Calm and without any tics, tremors or dyskinesias. Steady gait Mood: as noted above Affect: appropriate, reactive, generally bright Thought process: goal directed and without evidence of formal thought disorder Thought content: as noted above. Future oriented Perception: Denies AH/VH and does not appear to respond to internal stimuli Alert/oriented in all spheres Cognition grossly intact Insight: intact Judgment: intact Data Data Completed and Pending Completed studies during hospitalization [Text1]: 04/18/25 04/18/25 04/18/25 11:52 16:51 20:26 Sodium Potassium Chloride Carbon Dioxide Anion Gap BUN Creatinine Estim Creat Clear Calc Estimated GFR POC Glucose 239 H 241 H 301 H Random Glucose Calcium Total Bilirubin AST ALT Alkaline Phosphatase Total Protein Albumin 04/19/25 04/19/25 04/19/25 07:45 11:40 16:51 Sodium Potassium Chloride Carbon Dioxide Anion Gap BUN Creatinine Estim Creat Clear Calc Estimated GFR POC Glucose 185 H 316 H 221 H Random Glucose Calcium Total Bilirubin AST ALT Alkaline Phosphatase Total Protein Albumin 04/19/25 04/20/25 04/20/25 21:56 07:37 11:45 Sodium Potassium Chloride Carbon Dioxide Anion Gap BUN Creatinine Estim Creat Clear Calc Estimated GFR POC Glucose 247 H 166 H 214 H Random Glucose Calcium Total Bilirubin AST ALT Alkaline Phosphatase Total Protein Albumin 04/20/25 04/20/25 04/21/25 16:30 20:05 07:58 Sodium Potassium Chloride Carbon Dioxide Anion Gap BUN Creatinine Estim Creat Clear Calc Estimated GFR POC Glucose 231 H 208 H 204 H Random Glucose Calcium Total Bilirubin AST ALT Alkaline Phosphatase Total Protein Albumin 04/21/25 04/21/25 04/21/25 11:51 12:11 16:43 Sodium 137 Potassium 4.5 Chloride 99 Carbon Dioxide 30 H Anion Gap 13 BUN 18 H Creatinine 1.12 Estim Creat Clear Calc 62.3 Estimated GFR 49 POC Glucose 207 H 191 H Random Glucose 212 H Calcium 9.6 Total Bilirubin 0.7 AST 78 H ALT 76 H Alkaline Phosphatase 169 H Total Protein 7.8 Albumin 4.4 04/21/25 04/22/25 04/22/25 19:57 07:16 11:58 Sodium Potassium Chloride Carbon Dioxide Anion Gap BUN Creatinine Estim Creat Clear Calc Estimated GFR POC Glucose 206 H 192 H 224 H Random Glucose Calcium Total Bilirubin AST ALT Alkaline Phosphatase Total Protein Albumin 04/22/25 04/22/25 04/23/25 16:49 20:03 07:18 Sodium Potassium Chloride Carbon Dioxide Anion Gap BUN Creatinine Estim Creat Clear Calc Estimated GFR POC Glucose 224 H 228 H 186 H Random Glucose Calcium Total Bilirubin AST ALT Alkaline Phosphatase Total Protein Albumin 04/23/25 04/23/25 04/23/25 11:43 16:45 20:21 Sodium Potassium Chloride Carbon Dioxide Anion Gap BUN Creatinine Estim Creat Clear Calc Estimated GFR POC Glucose 215 H 257 H 239 H Random Glucose Calcium Total Bilirubin AST ALT Alkaline Phosphatase Total Protein Albumin 04/24/25 04/24/25 04/24/25 07:42 11:49 16:50 Sodium Potassium Chloride Carbon Dioxide Anion Gap BUN Creatinine Estim Creat Clear Calc Estimated GFR POC Glucose 193 H 259 H 200 H Random Glucose Calcium Total Bilirubin AST ALT Alkaline Phosphatase Total Protein Albumin 04/24/25 04/25/25 20:27 07:18 Sodium Potassium Chloride Carbon Dioxide Anion Gap BUN Creatinine Estim Creat Clear Calc Estimated GFR POC Glucose 203 H 191 H Random Glucose Calcium Total Bilirubin AST ALT Alkaline Phosphatase Total Protein Albumin DS: Summary Hospital Course Hospital Course: Ms. Reyes is a 64 yo partnered W F with h/o MDD, PTSD, ADHD, OUD on methadone, cocaine use d/o in remission, type II DM, HTN, HLD, CKD, and COPD who self- presented to the [facility] ED due to worsening depession and passive SI. She was transferred to [facility] for safety and stabilization. Pt reports that she sought an inpatient psychiatric admission due to a lot of grief and loss and a ton of fucking regret . She endorses an extensive h/o trauma, including the loss of multiple family members and friends since childhood. Her dad in his 40's, both uncles in their 30's, her brother and nephew and her cousin who was like a sister was murdered. These losses all occurred years ago. [place] and is frequently triggered by the sounds of sirens. She isolates in her room and watches TV all day. She wants to move. Her partner has been staying w/ his mom to help care for her and her youngest son currently lives with her. She moved to her current residence before the pandemic. She got very sick from Covid and was afraid she would . Her mental health has significantly declined since then. She reports that she has a good support system, including her 5 surviving siblings, her mom, and partner of almost 20 yrs. Her partner is currently living w/ his mom in [place] to help care for her. Her youngest son is currently living w/ her. She reports having multiple failed antidepressant trials and is interested in TMS. Current psychotropic med list- mirtazapine- not currently taking due to lack of efficacy clonidine- 0.1 mg qam, 0.2 mg qhs hydroxyzine gabapentin 800 mg tid methadone 57 mg ROS: Depressed mood, feelings of guilt and regret, low motivation, anhedonia. Endorses a passive wish. Denies thoughts to harm herself, states that would be selfish but I fucking hate my life . Endorses intrusive reminders of trauma, avoidance, hypervigilance, difficulty trusting others Denies h/o AH/VH. Denies h/o parth Past Psychiatric History: Psychiatrist- Dr. Klaus Nation at [facility] Pt sees a therapist Works with [facility] H/O inpatient dual dx tx 8-12 yrs ago at [facility] and [facility] Denies h/o self harm or violence Prior med trials: Pt reports trying multiple antidepressants, including Prozac- helped the most but caused insomnia and paranoia. She was most recently prescribed mirtazapine, which didn't help. Adderall rx'd for ADHD- felt jittery Medical Evaluation Reviewed: Yes [facility] Narrative: Chronic kidney disease stage IIIB Baseline creatinine 1.7 EGFR 36 Hypertension Hyperlipidemia COPD Type 2 diabetes- Recent A1c 12.1 Elevated LFTs- followed by GI Social History: Pt lives with her youngest son. Her 42 y/o son splits his time between living with pt and his father. Her youngest son lives in [place]. She has been twice. Her partner is currently staying w/ his mom to care for her. Raised in [facility] primarily by her mother. She has 5 surviving siblings. Reports having a good support system from family Got GED. 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 She snorted pills, then started using fentanyl. She denies any opioid abuse x 5 yrs and has been on methadone thru [facility]. She reports having take homes x 1 yr. h/o cocaine use- denies recent use Vapes occasionally. Declines NRT Denies ETOH use Trauma History: Pt endorses extensive h/o trauma Status at Discharge Functional status at discharge: independent ambulation Overall status at discharge: patient is back to baseline Time Spent with Patient Time attestation: Total time managing care of this patient today ____ minutes. Discharge Plan Discharge Anticipated Discharge Date/Time: 04/25/25 09:54 Patient Disposition: Xfer Other Discharge Diagnosis: MDD, recurrent, severe, without psychosis PTSD Opioid use disorder, in full sustained remission, on maintenance tx Cocaine use disorder, in full sustained remission Referrals: [facility] [Provider Group] - 1 Week Referral Note: 04-14-25 [facility] was added to patients chart. Please call [phone] to schedule a follow up appt within 7-10 days of discharge. No release or PCP on file. Discharge Medications: New tizanidine 4 mg Tablet 4 mg PO Q8H PRN (Reason: Muscle Spasm) Qty: 0 0RF promethazine 25 mg Tablet 25 mg PO Q8H PRN (Reason: Nausea) Qty: 0 0RF atorvastatin 80 mg Tablet 80 mg PO DAILY Qty: 0 0RF clonidine HCl 0.1 mg Tablet 0.1 mg PO DAILY Qty: 0 0RF Protocol: Hold for SBP< HOLD for SBP < : 90 Rx Instructions: qam clonidine HCl 0.1 mg Tablet 0.1 mg PO DAILY PRN (Reason: Anxiety) Qty: 0 0RF Protocol: Hold for SBP< HOLD for SBP < : 90 acetaminophen 325 mg Tablet 650 mg PO Q6H PRN (Reason: Headache/Pain, Scale 1-10) Qty: 0 0RF lisinopril 20 mg Tablet 20 mg PO DAILY Qty: 0 0RF Protocol: Hold for SBP< HOLD for SBP < : 90 gabapentin 400 mg Capsule 800 mg PO TID Qty: 0 0RF clonidine HCl 0.2 mg Tablet 0.2 mg PO BEDTIME Qty: 0 0RF Protocol: Hold for SBP< HOLD for SBP < : 90 hydroxyzine HCl 25 mg Tablet 25 mg PO Q6H PRN (Reason: mild anxiety) Qty: 0 0RF methadone [Methadose] 10 mg/mL Concentrate 20 mg PO DAILY@1200 Qty: 0 0RF Rx Instructions: Partial Fill upon patient request. Daily at 12:00 pm methadone [Methadose] 10 mg/mL Concentrate 27 mg PO DAILY@2000 Qty: 0 0RF Rx Instructions: Partial Fill upon patient request. Daily at 20:00 sennosides [Senna Lax] 8.6 mg Tablet 8.6 mg PO BID Qty: 0 0RF insulin glargine [Lantus U-100 Insulin] 100 unit/mL Solution 15 unit subcut BEDTIME Qty: 0 0RF polyethylene glycol 3350 17 gram Powder In Packet 17 g PO DAILY Qty: 0 0RF ketotifen fumarate [Eye Itch Relief] 0.025 % (0.035 %) Drops 1 drp ophthalmic (eye) BEDTIME Qty: 0 0RF sennosides-docusate sodium [Senna Plus] 8.6-50 mg Tablet 1 tab PO BID Qty: 0 0RF dextrose [Glutose-15] 40 % Gel 15 g PO Q15M PRN (Reason: Per Hypoglycemia Standing Ord.) Qty: 0 0RF Protocol: Glucose Gel Hypoglycemia Standing Order Protocol Text: For patients able to take PO (patient cooperative and able to swallow). Give Glucose Gel 15 gm PO for Blood Glucose (BG) < 70. Repeat BG every 15 min until BG > 70 x 3, if BG still < 70 and/or patient symptomatic repeat glucose gel or rapid acting carbohydrate. Notify MD if BG does not improve with treatment. famotidine 20 mg Tablet 40 mg PO DAILY Qty: 0 0RF magnesium hydroxide [Milk of Magnesia] 400 mg/5 mL Suspension 30 ml PO DAILY PRN (Reason: Constipation) Qty: 0 0RF omeprazole 20 mg Capsule,Delayed Release(Dr/Ec) 20 mg PO DAILY@0630 Qty: 0 0RF simethicone 80 mg Tablet,Chewable 80 mg PO BID Qty: 0 0RF MAG-AL 200-200 mg/5 mL Suspension 30 ml PO Q6H PRN (Reason: Heartburn/Nausea) Qty: 0 0RF ketoconazole 2 % Shampoo 1 appl topical Q72H PRN (Reason: Itching) Qty: 0 0RF Protocol: Apply to: Apply to: head lidocaine [Lidocaine Pain Relief] 4 % Adhesive Patch,Medicated 2 patch transdermal DAILY Qty: 0 0RF Protocol: Apply to: Apply to: Lower back insulin lispro [Admelog U-100 Insulin lispro] 100 unit/mL Solution See Protocol subcut QIDACHS Qty: 0 0RF Protocol: Insulin Correction Scale Less than or equal to 110 ---- Give (units): 0 111 to 150 Give (units): 0 151 to 200 Give (units): 2 201 to 250 Give (units): 4 251 to 300 Give (units): 6 301 to 350 Give (units): 8 Greater than 350 Give (units): 10 Call MD if Blood Glucose > : 350 cholecalciferol (vitamin D3) 25 mcg (1,000 unit) Tablet 50 mcg PO DAILY Qty: 0 0RF Januvia 25 mg Tablet 25 mg PO DAILY Qty: 0 0RF MouthKote Colver With Pump 2 spray mucous membrane Q2H PRN (Reason: dry mouth) Qty: 0 0RF Discontinued atorvastatin 80 mg tablet 80 mg PO DAILY clonidine HCl 0.1 mg tablet 0.1 mg PO DAILY ibuprofen 800 mg tablet 800 mg PO Q8H PRN (Reason: pain) tizanidine 4 mg tablet 4 mg PO Q8H PRN (Reason: muscle spasm) ketotifen fumarate [Eye Itch Relief] 0.025 % (0.035 %) drops 1 drp ophthalmic (eye) BID lisinopril 20 mg tablet 20 mg PO DAILY famotidine 40 mg tablet 40 mg PO DAILY gabapentin 800 mg tablet 800 mg PO TID pantoprazole 40 mg tablet,delayed release (DR/EC) 40 mg PO DAILY promethazine 25 mg tablet 25 mg PO Q8H PRN (Reason: nausea) cholecalciferol (vitamin D3) 50 mcg (2,000 unit) tablet 50 mcg PO DAILY clonidine HCl 0.1 mg tablet 0.1 mg PO DAILY PRN (Reason: Anxiety) clonidine HCl 0.1 mg tablet 0.2 mg PO BEDTIME methadone [Methadone Intensol] 10 mg/mL Concentrate 57 mg PO DAILY Discharge Orders: Discharge Order (Routine); Ordered 04/25/25 Ordered By: Johanna Trevino Diet: Diabetic diet Activity on Discharge: No Restrictions Stand Alone Forms: Patient Portal Discharge page, Community Support Print Language: Japanese Care Plan Goals: Maintain safe behaviors Practice coping skills Take medications as prescribed Continue to pursue sobriety Maintain regular follow-ups with your outpatient providers Health Concerns: Opioid use disorder, on methadone Pt usually splits her doses, receiving 20 mg at 12:00 pm and 27 mg at 8:00 pm. Today, 04/25/25- Pt received 27 mg at 9:41 am and 20 mg at 9:55 am since she is being discharged. She can resume her usual schedule tomorrow, 04/26/25 Type II DM HTN GERD HLD Plan of Treatment: Follow up with your psychiatric provider, PCP and other outpatient providers Take your medication as prescribed Assessment: Risk assessment at the time of discharge: Patient was interviewed on the day of discharge and found to be fully oriented. She denies any SI or violent ideation. She is oriented in all spheres. Insight and judgment are intact. Pt is not currently at high risk of harm to self or others. She has a safety plan that includes presenting to the closest ER or calling 911 if feeling unsafe. Pt has been observed closely by unit staff and has not engaged in any behaviors that suggest dangerous to self or others and has demonstrated appropriate behaviors and impulse control.
--- NOTE | 2025-04-25 11:28 | PC.NURSE ---
Evelyne engages easily. Reports feeling ready for discharge, anxious but ready. Denies feeling depressed, denies SI/HI plan or intent. Denies perceptual disturbances, no overt psychosis or expressed delusions. Discharge paperwork reviewed, declined to review medications as she felt overwhelmed . Discharged to [facility] . All belongings taken with patient. Crisis numbers provided, resource booklet provided. Last dose letter included in discharge packet.
== END 2025-04-25 11:00 | disposition other institution (70) | DRG 885 ==
PROVIDERS: Nurse Practitioner Psychiatric/Mental Health; Social Worker; Admitting Provider Psychiatry & Neurology Psychiatry; Visit Provider Psychiatry & Neurology Psychiatry
DX: F33.2 Major depressive disorder, recurrent severe without psychotic features (principal); F11.20 Opioid dependence, uncomplicated; F43.10 Post-traumatic stress disorder, unspecified; F90.9 Attention-deficit hyperactivity disorder, unspecified type; E78.5 Hyperlipidemia, unspecified; I12.9 Hypertensive chronic kidney disease with stage 1 through stage 4 chronic kidney disease, or unspecified chronic kidney disease; N18.32 Chronic kidney disease, stage 3b; F14.91 Cocaine use, unspecified, in remission; E11.22 Type 2 diabetes mellitus with diabetic chronic kidney disease; J44.9 Chronic obstructive pulmonary disease, unspecified; Z63.4 Disappearance and death of family member; Z87.891 Personal history of nicotine dependence; Z79.4 Long term (current) use of insulin; Z79.899 Other long term (current) drug therapy
CPT/HCPCS: 36415; 80053; 80061; 82607; 82746; 82947; 83036; 84439; 84443

== ENCOUNTER → 2025-04-12 16:51 | Outpatient (BNV) | payer OTHER, SELFPAY | PROVIDERS: Admitting Provider Psychiatry & Neurology Psychiatry; Visit Provider Nurse Practitioner Family | DX: E11.9 Type 2 diabetes mellitus without complications (principal); I10 Essential (primary) hypertension; E78.5 Hyperlipidemia, unspecified | CPT/HCPCS: 99221; 99499 ==

== ENCOUNTER → 2025-04-12 16:51 | Outpatient (BNV) | payer OTHER, SELFPAY | PROVIDERS: Admitting Provider Psychiatry & Neurology Psychiatry; Visit Provider Psychiatry & Neurology Psychiatry | DX: F33.2 Major depressive disorder, recurrent severe without psychotic features (principal); F11.20 Opioid dependence, uncomplicated; F14.91 Cocaine use, unspecified, in remission; F43.11 Post-traumatic stress disorder, acute | CPT/HCPCS: 90792 ==